=== PATIENT | female | born 1940 | race Caucasian/White ===

== ENCOUNTER → 2016-08-25 | Outpatient (CLI) | payer MEDICARE | END | disposition home or self-care (01) | LOC: RADECHMAIN 12:00 | PROVIDERS: ATTEND Family Medicine | DX: I49.3 Ventricular premature depolarization (principal); R00.8 Other abnormalities of heart beat; I47.1 Supraventricular tachycardia; I44.0 Atrioventricular block, first degree | CPT/HCPCS: 93270; 93271 ==

== ENCOUNTER → 2016-08-29 | Outpatient (CLI) | payer MEDICARE ==
--- NOTE | 2016-09-12 07:57 | EEG ---
DATE OF SERVICE: 08/29/2016 REASON FOR TESTING: Syncope. AGE: 76Y DESCRIPTION OF THE PROCEDURE: This EEG was performed using a 21-channel digital electroencephalograph, following the international 10 to 20 system. DESCRIPTION OF THE RECORDING: From the beginning of the tracing, and with the patient's eyes closed, the background rhythm was mostly consisting of 9 to 10 Hz alpha frequency in the posterior occipital leads. No obvious asymmetry is seen. Photic stimulation was performed with a good driving response seen. No pathological waves were elicited. Hyperventilation was not performed. The patient remains awake throughout the tracing. Occasional muscle and movement artifacts are seen. No epileptiform discharges were seen. Her EKG lead showed a regular rate and rhythm. INTERPRETATION: This awake EEG can be considered within normal limits. There was no asymmetry seen. No epileptiform discharges were noticed. The absence of epileptiform discharges does not rule out the diagnosis of epilepsy, therefore, clinical correlation is recommended.
== END ==
LOC: NEUROMAIN 08:59
PROVIDERS: ATTEND Family Medicine
DX: R55 Syncope and collapse (principal)
CPT/HCPCS: 95819

== ENCOUNTER → 2016-09-29 | Outpatient (CLI) | payer MEDICARE ==
--- NOTE | 2016-09-29 21:57 | MR ---
EXAMINATION TYPE: MR angio head wo con DATE OF EXAM: 09/29/2016 COMPARISON: NONE HISTORY: Vertebro-basilar artery syndrome, syncope and collapse per order. TECHNIQUE: Time of flight images focusing on the [place] of [place] were performed without contrast.. 2-D and 3-D postprocessing imaging is performed. FINDINGS: There is codominant vertebrobasilar system. No significant focal stenosis or aneurysmal irene nge. Caliber size of posterior circulation is felt within normal limits. There are hypoplastic wrecking car driver ior to communicating arteries noted bilaterally. Images of the anterior circulation show slight tortuous course to distal internal carotid arteries bi laterally. There is patent anterior communicating artery seen. No significant focal stenosis or aneur ysmal change is evident. IMPRESSION: No aneurysmal change at the level of [place]. Unremarkable study.
--- NOTE | 2016-09-29 22:00 | MR ---
EXAMINATION TYPE: MR neck wo/w con DATE OF EXAM: 09/29/2016 COMPARISON: NONE HISTORY: Vertebro-basilar artery syndrome, syncope and collapse. CONTRAST: Standard multiplanar, multisequence MRI departmental protocol utilizing 20 mL intravenous MultiHance gadolinium contrast. 2-D and 3-D postprocessing imaging is performed. FINDINGS: There is normal three-vessel origin from the aortic arch. The right common carotid artery s hows normal origin from the right brachiocephalic artery. There is no significant stenosis along cour se of the right common or internal carotid arteries including at level of the carotid bulb. There is patent external carotid arteries seen without significant stenosis identified. Images of the left neck show patent left common and internal carotid artery without significant steno sis including at level of carotid bulb. There is patent left external carotid artery without signific ant stenosis. There is codominant vertebrobasilar system. Vertebral arteries are patent to basilar junction. Patent subclavian arteries are noted bilaterally extending into proximal axillary arteries. No signif icant stenosis is evident. IMPRESSION: Unremarkable study. No significant focal stenosis in carotid or vertebral arterial systems bilaterall y.
== END | disposition home or self-care (01) ==
LOC: RADMRIMAIN 12:15
PROVIDERS: ATTEND Family Medicine
DX: R55 Syncope and collapse (principal); G45.0 Vertebro-basilar artery syndrome
CPT/HCPCS: 70544; 70543; A9577

== ENCOUNTER 2019-01-20 18:54 | Emergency (ER) | payer MEDICARE ==
[2019-01-20] MEDS ORDERED: METOCLOPRAMIDE 5 MG/ML 2 ML VIAL IVP STA (20:06)
[2019-01-20] MEDS ORDERED: diphenhydrAMINE 50 MG/ML 1 ML VIAL IVP STA (20:06)
--- NOTE | 2019-01-20 20:14 | ED ---
Headache HPI - General Mode of arrival: ambulatory Limitations: no limitations <Paulette Hicks - Last Filed: 01/21/19 01:48> <Trey Noel - Last Filed: 01/21/19 07:19> - General Chief Complaint: Headache Stated Complaint: Migraine,High BP Time Seen by Provider: 01/20/19 19:50 - History of Present Illness Initial Comments: 78-year-old female patient presents to the emergency department today for evaluation of headache and nausea. Patient states since Thursday she has had a headache mostly behind the right eye and radiating up into the right side of her head. Patient states in the morning she does have some blurred vision and black spots in the vision that does resolve when she's been up for a period of time. States that she has had some constant nausea but she is able to eat and drink. She denies any vomiting. Patient states that she does have some generalized weakness. Denies any numbness or tingling to the extremities. Patient denies any recent rash, fever, chills, shortness breath, chest pain, diarrhea, constipation, back pain, hematuria, dysuria, urinary urgency, urinary frequency, headache, visual changes, or any other complaints. (Paulette Hicks) - Related Data Home Medications Medication Instructions Recorded Confirmed Irbesartan 300 mg PO DAILY 11/24/13 01/20/19 Levothyroxine Sodium [Synthroid] 75 mcg PO MOTUWETHFRSA 11/24/13 01/20/19 Ascorbic Acid [Vitamin C with Julissa 500 mg PO DAILY 01/20/19 01/20/19 Hips] Atenolol [Tenormin] 12.5 mg PO DAILY 01/20/19 01/20/19 Biotin 5,000 mcg PO DAILY 01/20/19 01/20/19 Cholecalciferol (Vitamin D3) 2,000 unit PO DAILY 01/20/19 01/20/19 [Vitamin D3] Cyanocobalamin (Vitamin B-12) 1,000 mcg PO DAILY 01/20/19 01/20/19 [Vitamin B-12] Diclofenac Sodium [Voltaren Gel] 1 applic TOPICAL DAILY PRN 01/20/19 01/20/19 Fish Oil/Dha/Epa [Fish Oil 1,200 1 cap PO HS 01/20/19 01/20/19 mg Fish Oil] Folic Acid 0.4 mg PO DAILY 01/20/19 01/20/19 Lansoprazole [Prevacid] 15 mg PO DAILY 01/20/19 01/20/19 Levothyroxine Sodium [Synthroid] 112.5 mcg PO BOUDREAUX 01/20/19 01/20/19 Lutein 20 mg PO DAILY 01/20/19 01/20/19 Melatonin 5 mg PO HS 01/20/19 01/20/19 Montelukast [Singulair] 10 mg PO HS 01/20/19 01/20/19 Selenium 100 mcg PO DAILY 01/20/19 01/20/19 Turmeric Root Extract [Turmeric] 500 mg PO BID 01/20/19 01/20/19 Vitamin A Acetate [Vitamin A] 10,000 unit SL DAILY 01/20/19 01/20/19 Vitamin E (Dl,Tocopheryl Acet) 400 unit PO DAILY 01/20/19 01/20/19 [Vitamin E] Zinc Gluconate [Zinc] 50 mg PO HS 01/20/19 01/20/19 hydrALAZINE HCL [Apresoline] 50 mg PO BID 01/20/19 01/20/19 Allergies Allergy/AdvReac Type Severity Reaction Status Date / Time Beef Containing Products Allergy Unknown Verified 01/20/19 20:27 Milk Containing Products Allergy Unknown Verified 01/20/19 20:27 [Dairy] mold Allergy Dyspnea Verified 01/20/19 20:27 pollen extracts Allergy Dyspnea Verified 01/20/19 20:27 procaine [From Novocain] Allergy Unknown Verified 01/20/19 20:27 tree and shrub pollen Allergy Dyspnea Verified 01/20/19 20:27 aspirin AdvReac Abdominal Verified 01/20/19 20:27 Pain celecoxib [From Celebrex] AdvReac Dyspnea Verified 01/20/19 20:27 Review of Systems ROS Other: All systems not noted in ROS Statement are negative. <Paulette Hicks - Last Filed: 01/21/19 01:48> ROS Other: All systems not noted in ROS Statement are negative. <Trey Noel - Last Filed: 01/21/19 07:19> ROS Statement: Those systems with pertinent positive or pertinent negative responses have been documented in the HPI. Past Medical History Past Medical History: Hyperlipidemia, Hypertension History of Any Multi-Drug Resistant Organisms: None Reported Past Surgical History: Orthopedic Surgery Additional Past Surgical History / Comment(s): bilateral knee Past Psychological History: No Psychological Hx Reported Smoking Status: Never smoker Past Alcohol Use History: Occasional Past Drug Use History: None Reported <Paulette Hicks - Last Filed: 01/21/19 01:48> General Exam Limitations: no limitations General appearance: alert, in no apparent distress, other (Physical well-developed, well-nourished elderly female patient in no acute distress. Vital signs upon presentation are temperature 98.2F, pulse 66, respirations 16, blood pressure 125/68, pulse ox 98% on room air.) Eye exam: Present: normal appearance, PERRL, EOMI. Absent: scleral icterus, con junctival injection, nystagmus, periorbital swelling ENT exam: Present: normal exam, normal oropharynx, mucous membranes moist Neck exam: Present: normal inspection. Absent: tenderness, meningismus, lymphadenopathy Respiratory exam: Present: normal lung sounds bilaterally. Absent: respiratory distress, wheezes, rales, rhonchi, stridor Cardiovascular Exam: Present: regular rate, normal rhythm, normal heart sounds. Absent: systolic murmur, diastolic murmur, rubs, gallop, clicks GI/Abdominal exam: Present: soft, normal bowel sounds. Absent: distended, tenderness, guarding, rebound, rigid Neurological exam: Present: alert, oriented X3, CN II-XII intact, other (Strength in all 4 extremities is 5/5.) Psychiatric exam: Present: normal affect, normal mood Skin exam: Present: warm, dry, intact, normal color. Absent: rash <Paulette Hicks - Last Filed: 01/21/19 01:48> Course Vital Signs 01/20/19 01/20/19 01/21/19 18:56 21:43 00:04 Temperature 98.2 F 98.8 F Pulse Rate 66 83 84 Respiratory 16 20 18 Rate Blood Pressure 125/68 122/77 132/79 O2 Sat by Pulse 98 97 95 Oximetry Medical Decision Making - Lab Data Result diagrams: 01/20/19 20:20 01/20/19 20:20 - EKG Data -: EKG Interpreted by Wy - Radiology Data Radiology results: report reviewed, image reviewed <Paulette Hicks - Last Filed: 01/21/19 01:48> - Lab Data Result diagrams: 01/20/19 20:20 01/20/19 20:20 <Trey Noel - Last Filed: 01/21/19 07:19> - Medical Decision Making 78-year-old female patient presents to the emergency department today for evaluation of right frontal headache. Physical examination is unremarkable. She is neurologically intact with no focal deficits. Labs reviewed and are unremarkable. CT brain was obtained and showed no acute abnormalities. Upon reevaluation patient reports continued headache. We did discuss further pain management options. My attending Dr. Noel was in to evaluate the patient. We did discuss lumbar puncture, patient declined stating she would rather have outpatient MRI. She was given additional IV fluid, Tylenol, and Decadron. Upon reevaluation she does report improvement of her headache which is comparable being discharged home at this time. She is instructed to follow-up with the primary care physician for recheck in 1-2 days. She is instructed to call the primary care's office in the morning and discuss MRI. She is also given outpatient referrals for neurology. Return parameters were discussed in detail. She verbalizes understanding and agrees with this plan. (Paulette Hicks) I saw this patient in conjunction with the physician kitchen assistant. I performed independent history and physical exam. Agree with case management. (Trey Mccarty) - Lab Data Lab Results 01/20/19 01/20/19 01/20/19 Range/Units 20:20 20:20 20:20 WBC 7.3 (3.8-10.6) k/uL RBC 4.05 (3.80-5.40) m/uL Hgb 11.9 (11.4-16.0) gm/dL Hct 37.6 (34.0-46.0) % MCV 92.9 (80.0-100.0) fL MCH 29.4 (25.0-35.0) pg MCHC 31.7 (31.0-37.0) g/dL RDW 14.2 (11.5-15.5) % Plt Count 254 (150-450) k/uL Neutrophils % 62 % Lymphocytes % 25 % Monocytes % 7 % Eosinophils % 4 % Basophils % 0 % Neutrophils # 4.5 (1.3-7.7) k/uL Lymphocytes # 1.8 (1.0-4.8) k/uL Monocytes # 0.5 (0-1.0) k/uL Eosinophils # 0.3 (0-0.7) k/uL Basophils # 0.0 (0-0.2) k/uL ESR 6 (0-20) mm/hr Sodium 138 (137-145) mmol/L Potassium 4.4 (3.5-5.1) mmol/L Chloride 106 (98-107) mmol/L Carbon Dioxide 23 (22-30) mmol/L Anion Gap 9 mmol/L BUN 35 H (7-17) mg/dL Creatinine 1.20 H (0.52-1.04) mg/dL Est GFR (CKD-EPI)AfAm 51 (>60 ml/min/1.73 sqM) Est GFR (CKD-EPI)NonAf 44 (>60 ml/min/1.73 sqM) Glucose 108 H (74-99) mg/dL Calcium 9.5 (8.4-10.2) mg/dL Total Bilirubin 0.3 (0.2-1.3) mg/dL AST 18 (14-36) U/L ALT 28 (9-52) U/L Alkaline Phosphatase 90 (38-126) U/L Troponin I <0.012 (0.000-0.034) ng/mL Total Protein 6.4 (6.3-8.2) g/dL Albumin 3.9 (3.5-5.0) g/dL Amylase 78 (30-110) U/L Lipase 338 H (23-300) U/L - EKG Data EKG Comments: EKG obtained at 2027 shows normal sinus rhythm with a ventricular rate of 74, TN interval 172, QRS duration was 72, QT 366, QTC 406. No evidence of ST elevation or depression. (Paulette Hicks) - Radiology Data CT brain without contrast was obtained. Report was reviewed in its entirety. Impression by Dr. Perez shows cerebral atrophy. Chronic small vessel ischemia. No acute intra-cranial abnormalities. (Paulette Hicks) Disposition Is patient prescribed a controlled substance at d/c from ED?: No Time of Disposition: 23:47 <Paulette Hicks - Last Filed: 01/21/19 01:48> <Trey Noel - Last Filed: 01/21/19 07:19> Clinical Impression: Headache, Nausea Disposition: HOME SELF-CARE Condition: Good Instructions (If sedation given, give patient instructions): Acute Headache (ED), Acute Nausea and Vomiting (ED) Additional Instructions: Take tylenol for pain control. Call Dr. Ge's office in the morning to discuss MRI. Follow up with neurology for further evaluation as soon as possible. Return to the emergency department immediately for any new, worsening, or concerning symptoms. Referrals: Sahara Ge MD [Primary Care Provider] - 1-2 days Shaniqua Valero MD [Medical Doctor] - 1-2 days
[2019-01-20 20:31] LABS: Basophils % (A) 0 %; Eosinophils # (A) 0.3 k/uL (0-0.7); Eosinophils % (A) 4 %; HCT 37.6 % (34.0-46.0); HGB 11.9 gm/dL (11.4-16.0); Lymphocytes # (A) 1.8 k/uL (1.0-4.8); Lymphocytes % (A) 25 %; MCH 29.4 pg (25.0-35.0); MCHC 31.7 g/dL (31.0-37.0); MCV 92.9 fL (80.0-100.0); Mean Platelet Volume 7.9; Monocytes # (A) 0.5 k/uL (0-1.0); Monocytes % (A) 7 %; Neutrophils # (A) 4.5 k/uL (1.3-7.7); Neutrophils % (A) 62 %; Platelet Count 254 k/uL (150-450); RBC 4.05 m/uL (3.80-5.40); RDW 14.2 % (11.5-15.5); WBC 7.3 k/uL (3.8-10.6)
[2019-01-20 20:44] LABS: Albumin 3.9 g/dL (3.5-5.0); Calcium 9.5 mg/dL (8.4-10.2); Potassium 4.4 mmol/L (3.5-5.1); Total Bilirubin 0.3 mg/dL (0.2-1.3); Total Protein 6.4 g/dL (6.3-8.2)
--- NOTE | 2019-01-20 21:00 | CT ---
EXAMINATION TYPE: CT brain wo con DATE OF EXAM: 01/20/2019 COMPARISON: None HISTORY: Headache, blurred vision, elevated BP, nausea. CT DLP: 1129.4 mGycm Automated exposure control for dose reduction was used. FINDINGS: There is cerebral cortical atrophy. There is no mass effect nor midline shift. There is no sign of in tracranial hemorrhage. There is moderate patchy hypodensity in the periventricular white matter. Calv arium appears intact. Skull base appears intact. IMPRESSION: CEREBRAL ATROPHY. CHRONIC DIFFUSE SMALL VESSEL ISCHEMIA. NO ACUTE INTRACRANIAL ABNORMALITY.
[2019-01-20] MEDS ORDERED: SODIUM CHLORIDE 0.9% 1,000 ML IV ONE (21:24)
[2019-01-20 21:30] LABS: Erythrocyte Sedimentation Rate 6 mm/hr (0-20)
[2019-01-20] MEDS ORDERED: MORPHINE SULFATE 2 MG/ML SYRINGE IVP STA (22:37)
[2019-01-20] MEDS ORDERED: ACETAMINOPHEN TAB 500 MG TAB PO STA (22:48)
[2019-01-20] MEDS ORDERED: DEXAMETHASONE SOD PHOSPHATE 10 MG/ML 1 ML VIAL IV STA (22:48)
[2019-01-21 00:05] VITALS: BP 132/79; PULSE 84; RESP 18; TEMP 98.8
== END 2019-01-21 00:04 | disposition home or self-care (01) ==
LOC: EC 18:54
DX: R51 Headache (principal); R11.0 Nausea; H53.8 Other visual disturbances; R53.1 Weakness; I10 Essential (primary) hypertension; Z88.4 Allergy status to anesthetic agent; Z88.6 Allergy status to analgesic agent; Z91.011 Allergy to milk products; Z91.018 Allergy to other foods; Z91.048 Other nonmedicinal substance allergy status; Z79.890 Hormone replacement therapy; Z79.899 Other long term (current) drug therapy; Z53.20 Procedure and treatment not carried out because of patient's decision for unspecified reasons; Z53.29 Procedure and treatment not carried out because of patient's decision for other reasons
CPT/HCPCS: 36415; 93005; 80053; 85652; 82150; 83690; 84484; 85025; 70450; 99284; 96374; 96375 ×2; 96361; J1200; J1100; J2765

== ENCOUNTER → 2019-01-25 | Outpatient (CLI) | payer MEDICARE ==
--- NOTE | 2019-01-25 10:38 | MR ---
EXAMINATION TYPE: MR brain wo/w con DATE OF EXAM: 01/25/2019 COMPARISON: None HISTORY: Headaches CONTRAST: Performed utilizing 6.5 mL intravenous Gadavist gadolinium contrast. TECHNIQUE: Multiplanar, multiecho imaging on a 3.0 Radha magnet is performed through the brain. Stud y is performed within 24 hours of arrival to the hospital. The craniovertebral junction is normal. The pituitary is normal. Diffusion-weighted imaging is performed. Tiny subtle ependymal increased signals within the right oc cipital horn lateral ventricle wall. Series 305 image 128. Some acute ischemic change this level may be present. No additional suspicious hyperintensities on diffusion weighted imaging are evident. There are multiple patchy to confluent periventricular white matter changes which are nonspecific. Mi crovascular ischemic changes favored. Other etiologies including multiple sclerosis, vasculitis or Ly me disease could be considered. Ventricles and sulci are somewhat prominent for the patient age. No abnormal enhancement is evident. IMPRESSIONS: 1. Fairly extensive chronic appearing periventricular white matter ischemic changes. Additional subco rtical and deep white matter changes are present. Microvascular ischemic change is most likely within the differential. 2. Tiny acute ischemic change along the ependymal wall of the right occipital horn lateral ventricle may be present.
== END | disposition home or self-care (01) ==
LOC: RADMRIMAIN 07:09
PROVIDERS: ATTEND Family Medicine
DX: I67.82 Cerebral ischemia (principal); R90.89 Other abnormal findings on diagnostic imaging of central nervous system
CPT/HCPCS: 70553; A9585

== ENCOUNTER → 2019-01-27 | Outpatient (CLI) | payer MEDICARE ==
--- NOTE | 2019-01-27 15:25 | US ---
EXAMINATION TYPE: US carotid duplex BILAT DATE OF EXAM: 01/27/2019 COMPARISON: MRI CLINICAL HISTORY: I65.22 OCCLUSION AND STENOSIS OF LT CAROTID ARTERY. Stenosis, pt has no complaints at this time EXAM MEASUREMENTS: RIGHT: Peak Systolic Velocity (PSV) cm/sec ----- Right CCA: 114.2 ----- Right ICA: 122.4 ----- Right ECA: 151.2 ICA/CCA ratio: 1.1 RIGHT: End Diastole cm/sec ----- Right CCA: 22.7 ----- Right ICA: 42.2 ----- Right ECA: 0.0 LEFT: Peak Systolic Velocity (PSV) cm/sec ----- Left CCA: 92.7 ----- Left ICA: 313.0 ----- Left ECA: 92.7 ICA/CCA ratio: 3.4 LEFT: End Diastole cm/sec ----- Left CCA: 26.7 ----- Left ICA: 103.3 ----- Left ECA: 0.0 VERTEBRALS (direction of flow): Right Vertebral: Antegrade Left Vertebral: Antegrade Rhythm: Arrhythmia No significant stenosis seen on right side, left ICA showing elevated velocities possibly partially s econdary to tortuosity IMPRESSION: 1. Cardiac arrhythmia, correlate with EKG. 2. Stenosis of greater than 70% within the left internal carotid artery. CTA neck could be utilized f or more accurate assessment of degree of stenosis. Criteria for Assigning % of Stenosis / Diameter reduction (Estimation based on the indirect measurements of the internal carotid artery velocities (ICA PSV). 1. Normal (no stenosis)=ICA PSV < 125 cm/s: ratio < 2.0: ICA EDV<40 cm/s. 2. Less than 50% stenosis=ICA PSV < 125 cm/s: ratio < 2.0: ICA EDV<40 cm/s. 3. 50 to 69% stenosis=ICA PSV of 125 to 230 cm/s: ration 2.0 ? 4.0: ICA EDV 40-100 cm/s. 4. Greater than 70% stenosis to near occlusion= ICA PSV > 230 cm/s: ratio > 4.0: ICA EDV > 100 cm/s. 5. Near occlusion= ICA PSV velocities may be low or undetectable: variable ratio and ICA EDV. 6. Total occlusion=unable to detect flow.
== END ==
LOC: RADUSWWP 14:52
PROVIDERS: ATTEND Family Medicine
DX: I49.9 Cardiac arrhythmia, unspecified (principal); I65.22 Occlusion and stenosis of left carotid artery
CPT/HCPCS: 93880

== ENCOUNTER → 2019-01-31 | Outpatient (CLI) | payer MEDICARE ==
--- NOTE | 2019-01-31 13:01 | ECHOF ---
Referral Reason:I65.22 L carotid stenosis, I49.9 Arrythmia MEASUREMENTS -------- HEIGHT: 162.6 cm WEIGHT: 61.7 kg BP: RVIDd: 3.0 cm (< 3.3) IVSd: 1.3 cm (0.6 - 1.1) LVIDd: 3.9 cm (3.9 - 5.3) LVPWd: 1.7 cm (0.6 - 1.1) IVSs: 1.7 cm LVIDs: 2.3 cm LVPWs: 1.9 cm LAESV Index (A-L): 49.10 ml/m Ao Diam: 3.1 cm (2.0 - 3.7) AV Cusp: 1.6 cm (1.5 - 2.6) LA Diam: 3.9 cm (2.7 - 3.8) MV EXCURSION: 13.666 mm (> 18.000) MV EF SLOPE: 52 mm/s (70 - 150) EPSS: 0.4 cm MV E Roger: 0.92 m/s MV DecT: 187 ms MV A Roger: 1.07 m/s MV E/A Ratio: 0.86 AR PHT: 368 ms RAP: 5.00 mmHg RVSP: 43.88 mmHg FINDINGS -------- Sinus rhythm with extra systolic beats. This was a technically good study. The left ventricular size is normal. There is moderate concentric left ventricular hypertrophy. O verall left ventricular systolic function is normal with, an EF between 60 - 65 %. Left ventricular fillimg pressure cannot be estimated due to severe mitral regurgitation. The right ventricle is normal in size. LA is severely dilated >40 ml/m2 The right atrial size is normal. Interatrial and interventricular septum intact. The aortic valve is trileaflet and appears structurally normal. There is mild aortic regurgitation. There is no evidence of aortic stenosis. Mild mitral annular calcification present. Uummbtvo-iy-yvarmf mitral regurgitation is present. Mild tricuspid regurgitation present. There is mild pulmonary hypertension. The right ventricular systolic pressure, as measured by Doppler, is 43.88mmHg. There is no pulmonic regurgitation present. The aortic root size is normal. Normal inferior vena cava with normal inspiratory collapse consistent with estimated right atrial pre ssure of 5 mmHg. There is no pericardial effusion. CONCLUSIONS -------- 1. Sinus rhythm with extra systolic beats. 2. This was a technically good study. 3. The left ventricular size is normal. 4. There is moderate concentric left ventricular hypertrophy. 5. Overall left ventricular systolic function is normal with, an EF between 60 - 65 %. 6. Left ventricular fillimg pressure cannot be estimated due to severe mitral regurgitation. 7. The right ventricle is normal in size. 8. LA is severely dilated >40 ml/m2 9. The right atrial size is normal. 10. Interatrial and interventricular septum intact. 11. The aortic valve is trileaflet and appears structurally normal. 12. There is mild aortic regurgitation. 13. There is no evidence of aortic stenosis. 14. Mild mitral annular calcification present. 15. Cmtwpgtn-ps-wukkhk mitral regurgitation is present. 16. Mild tricuspid regurgitation present. 17. There is mild pulmonary hypertension. 18. The right ventricular systolic pressure, as measured by Doppler, is 43.88mmHg. 19. There is no pulmonic regurgitation present. 20. The aortic root size is normal. 21. Normal inferior vena cava with normal inspiratory collapse consistent with estimated right atrial pressure of 5 mmHg. 22. There is no pericardial effusion. CONSTRUCTION MGR: April Hunt RDCS
--- NOTE | 2019-01-31 14:06 | CT ---
EXAMINATION TYPE: CT angio neck DATE OF EXAM: 01/31/2019 HISTORY: Carotid stenosis COMPARISON: 01/27/[address] DLP: 285 mGycm. Automated Exposure Control for Dose Reduction was Utilized. TECHNIQUE: CTA scan of the neck is performed with IV Contrast, patient injected with 65 mL of Isovue 370, axial images are obtained, coronal and sagittal reformatted images are reviewed. Three-D recons tructed images are created on an independent workstation and reviewed. Source images are reviewed. FINDINGS: Carotid/Vascular Structures: There is a three-vessel arch. Significant flow-limiting stenosis of the carotid bifurcations is not evident. There is atheromatous plaquing at the left carotid bifurcation without stenosis. IMPRESSION: 1. No flow-limiting stenosis bilateral carotid bifurcations.
== END ==
LOC: RADECHMAIN 08:03
PROVIDERS: ATTEND Family Medicine
DX: I65.22 Occlusion and stenosis of left carotid artery (principal)
CPT/HCPCS: 93306; 82565; 84520; 70498; 36415; Q9967

== ENCOUNTER → 2019-02-11 | Outpatient (CLI) | payer MEDICARE ==
[2019-02-11 15:16] LABS: HCT 36.9 % (34.0-46.0); HGB 11.6 gm/dL (11.4-16.0); MCH 29.7 pg (25.0-35.0); MCHC 31.3 g/dL (31.0-37.0); MCV 94.7 fL (80.0-100.0); Mean Platelet Volume 7.7; Platelet Count 291 k/uL (150-450); WBC 7.5 k/uL (3.8-10.6)
[2019-02-11 15:32] LABS: African American GFR (CKD) >90 (>60 ml/min/1.73 sqM); Anion Gap 9 mmol/L; Blood Urea Nitrogen 16 mg/dL (7-17); Carbon Dioxide 21 mmol/L (22-30); Chloride 110 mmol/L (98-107); Potassium 4.2 mmol/L (3.5-5.1); Sodium 140 mmol/L (137-145)
== END | disposition home or self-care (01) ==
LOC: LABPAT 14:29
PROVIDERS: ATTEND Internal Medicine Interventional Cardiology
DX: Z01.812 Encounter for preprocedural laboratory examination (principal)
CPT/HCPCS: 36415; 80051; 82565; 84520; 85027

== ENCOUNTER 2019-02-21 08:00 | Day surgery (SDC) | payer MEDICARE ==
[2019-02-17 14:05] VITALS: BMI 24.5
[2019-02-21 07:07] VITALS: TEMP 97.8
[~2019-02-21 08:00] MED LIST: ALPRAZolam 0.25 MG TAB PO PRN; ALPRAZolam 0.5 MG TAB PO PRN; ATORVASTATIN 80 MG TAB PO STA; BENZOCAINE SPRAY 1 CAN MUCOUS MEM ONE; HYDROmorphone 0.5 MG/0.5 ML SYRINGE IVP ONE; MIDAZOLAM 2 MG/2 ML VIAL IV ONE; NITROGLYCERIN SL TABS 0.4 MG TAB SUBLINGUAL PRN; SODIUM CHLORIDE 0.9% 1,000 ML IV ONE; SODIUM CHLORIDE 0.9% 1,000 ML in EMPTY BAG 1 BAG IV ONE; fentaNYL (PF) 50 MCG/ML 2 ML AMP IV ONE; fentaNYL (PF) 50 MCG/ML 2 ML AMP ONE; hydrALAZINE HCL 20 MG/ML 1 ML VIAL IVP ONE
[2019-02-21] MEDS ORDERED: LIDOCAINE 1% INJ 10MG/ML (20 ML MDV) SQ ONE (08:16)
[2019-02-21] MEDS ORDERED: HYDROmorphone 1 MG/ML 1 ML SYRINGE IVP ONE (08:25)
[2019-02-21] MEDS ORDERED: IOPAMIDOL-370 125ML BTL INJ ONE (08:43)
[2019-02-21] MEDS ORDERED: RX INFO: IV CONTRAST WAS GIVEN 1 EACH MISC MISCELLANE PRN (08:51)
[2019-02-21] MEDS ORDERED: SODIUM CHLORIDE 0.9% 1,000 ML IV SCH (09:00)
--- NOTE | 2019-02-21 09:01 | P.PCN ---
Date of Procedure: 02/21/19 Operative Findings: CARDIAC CATHETERIZATION PERFORMING PHYSICIAN: Rolando Beauchamp MD, RPVI PROCEDURE PERFORMED: 1. Right heart catheterization 2. Selective right and left coronary angiogram 3. Left heart catheterization 4. Left ventriculography INDICATION: This is a pleasant 78-year-old female patient was experiencing recently increasing shortness of breath with exertion and also sometimes chest discomfort with exertion. She underwent transthoracic echocardiogram which revealed evidence of moderate to severe MR. She underwent a NIVIA earlier today and she was brought to undergo a right and left heart catheterization. COMPLICATION: None APPROACH: Right common femoral vein Right common femoral artery LEVEL OF SEDATION: Moderate sedation duration of 30 minutes PROCEDURE DESCRIPTION: After obtaining an informed consent, the patient was brought to cardiac cath l ab. Local anesthesia was performed using lidocaine subcutaneously. The right common femoral vein was cannulated using micropuncture technique, the micropuncture wire passed easily then I placed an 8-Russian sheath. The right common femoral artery was cannulated using Seldinger technique, the guidewire passed easily, following that we advanced a 6 Russian sheath dilator assembly, the wire and dilator were removed and sheath was flushed. Right heart catheterization was performed using 7-Russian [place] catheter. Selective right and left coronary angiogram using a 6-Russian JR4 and JL catheters. Following that we did left heart catheterization and left ventriculography using 6-Russian pigtail catheter. The procedure was completed there was no complication. SELECTIVE CORONARY ANGIOGRAM: The right coronary artery: Is a large caliber vessel and a dominant vessel. The RCA has mild disease in the midportion. Left main: Is angiographically normal. Bifurcates into LCx and LAD. The left circumflex: Is a large caliber vessel. The proximal LCx appeared to be angiographically normal. The mid LCx has a long tubular lesion up to about 80%. The lesions inv olving the bifurcation of OM1 which has a tight ostial lesion. White into underwent 3 appeared to have mild disease only. The circumflex continues after that as a small to medium caliber vessel in the AV groove The left anterior descending artery: The LAD is a large caliber vessel. The proximal LAD appeared to have mild disease only. The mid LAD appears to have a lesion in the range of 40-50%. The LAD distally appears to be normal. LAD gives rises into 2 small diagonal branches. The first diagonal has a lesion about 50% and second diagonal appeared to be angiographically normal. HEMODYNAMICS: The pulmonary capillary wedge pressure was 18 mmHg The PA pressures were as follow systolic 37, diastolic 21, and mean of 29 mmHg RV pressures were as follow systolic 35 and end-diastolic of 11 mmHg RA pressure was 7 mmHg The LV EDP was 12-18 mmHg LEFT VENTRICLE ANGIOGRAM: Was performed in the JULIAN projection and using a power injection. The left ventricular systolic function is normal with 3+ MR. CONCLUSION: 1. Normal right heart pressures 2. 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 Intermediate disease involving the mid LAD 4. Normal left ventricle systolic function 5. 3+ mitral regurgitation POSTPROCEDURE MANAGEMENT: Giving the above anatomy, and the process of mitral and tricuspid regurgitation, I did recommend patient to be seen by cardiothoracic surgeon for the evaluation of coronary artery bypass grafting.
--- NOTE | 2019-02-21 09:02 | P.PCN ---
Date of Procedure: 02/21/19 Operative Findings: TRANSESOPHAGEAL ECHOCARDIOGRAM SUPERVISOR SANDING: CRISTIANE CATALAN MD, RPVI INDICATION: This is a pleasant 78-year-old female patient was experiencing recently increasing shortness of breath with exertion. She underwent an echocardiogram which revealed normal LV function was evidence of moderate to severe mitral regurgitation. Because of that a NIVIA and heart catheterization where advice. SEDATION: Conscious sedation with sedation length of 15 minutes COMPLICATION: None PROCEDURE DESCRIPTION: After obtaining an informed consent, the patient was brought to transesophageal echocardiogram room. Pulse oximetry and heart monitors were attached to the patient. The patient throat was sprayed using lidocaine. The patient was turned into left lateral position. After that a bite guard was placed. After an appropriate conscious sedation was initiated, the transesophageal echocardiogram was advanced through a bite guard into the mid esophagus. A 2-D echocardiogram images, color Doppler images, continuous wave images, pulse-wave images, of various cardiac structure were performed. After that the transesophageal echocardiogram probe was advanced into the stomach and fixed to obtain transgastric view was. The probe was brought into the mid esophagus. Inter-atrial septum was interrogated using 2D images, color Doppler images, and then contrast study. After that transesophageal echocardiogram was withdrawn out and upon withdrawing the descending thoracic aorta all the way up to the arch was evaluated. FINDING: The left ventricular dimension and systolic function appeared to be within normal limits. The ejection fraction appeared to be in the range of 50-55%. The right ventricle appeared to be of normal size and function. The left atrium is dilated. The left atrial appendage appeared to be free from any thrombus. The interatrial septum appeared to be intact. Aortic valve is trileaflet valve without stenosis with mild insufficiency. Mitral valve seems to be mildly thickened with evidence of moderate mitral regurgitation by color flow Doppler, by see my quantitative measurements, as well as by quantitative measurements. I did perform color flow Doppler, I did perform vena contractor measurements, and also I did perform PISA measurement. The tricuspid valve appears to be mildly thickened as well was evidence of moderate tricuspid regurgitation. Aortic root appeared to be within normal limits for dimension. No evidence of pericardial effusion seen. CONCLUSION: 1. Normal left ventricular systolic function with EF between 50-55% 2. Normal right ventricular dimension and systolic function 3. Dilated left atrium 4. Intact interatrial septum 5. Normal left appendage 6. Thickened mitral valve leaflets with moderate mitral regurgitation by color flow, see my quantitative, and quantitative measurements 7. Thickened tricuspid valve leaflets with evidence of moderate tricuspid regurgitation 8. Trileaflet aortic valve without stenosis with mild insufficiency 9. Normal pulmonic valve with mild insufficiency 10 Normal aortic root dimension 11 No evidence of pericardial effusion
[2019-02-21] MEDS ORDERED: ONDANSETRON 4 MG/2 ML VIAL ONE (09:06)
[2019-02-21 10:37] VITALS: RESP 16
[2019-02-21 12:32] VITALS: BP 157/70; PULSE 71
== END 2019-02-21 14:15 | disposition home or self-care (01) ==
LOC: CATHCVL 08:00
PROVIDERS: ATTEND Internal Medicine Interventional Cardiology
DX: I08.1 Rheumatic disorders of both mitral and tricuspid valves (principal); I37.0 Nonrheumatic pulmonary valve stenosis; I25.10 Atherosclerotic heart disease of native coronary artery without angina pectoris; I10 Essential (primary) hypertension; E78.5 Hyperlipidemia, unspecified; E78.00 Pure hypercholesterolemia, unspecified; Z82.49 Family history of ischemic heart disease and other diseases of the circulatory system; Z79.890 Hormone replacement therapy; Z79.899 Other long term (current) drug therapy; Z88.6 Allergy status to analgesic agent; Z88.4 Allergy status to anesthetic agent; Z88.0 Allergy status to penicillin
CPT/HCPCS: 93312; 93320; 93325; 93453; C1760; C1751; C1894 ×2; C1769 ×2; J2250; J0360; J2405; J2001; J3010; J1170; Q9967; 93460

== ENCOUNTER → 2019-04-14 | Outpatient (CLI) | payer MEDICARE ==
[2019-04-14 11:17] LABS: HCT 42.1 % (34.0-46.0); HGB 13.2 gm/dL (11.4-16.0); MCH 28.8 pg (25.0-35.0); MCHC 31.4 g/dL (31.0-37.0); MCV 91.5 fL (80.0-100.0); Mean Platelet Volume 8.5; Platelet Count 262 k/uL (150-450); RDW 13.3 % (11.5-15.5); WBC 6.3 k/uL (3.8-10.6)
[2019-04-14 11:22] LABS: Potassium 4.6 mmol/L (3.5-5.1)
== END | disposition home or self-care (01) ==
LOC: LABPAT 10:42
PROVIDERS: ATTEND Internal Medicine Interventional Cardiology
DX: Z01.812 Encounter for preprocedural laboratory examination (principal); I25.10 Atherosclerotic heart disease of native coronary artery without angina pectoris; I10 Essential (primary) hypertension; E05.90 Thyrotoxicosis, unspecified without thyrotoxic crisis or storm; R53.83 Other fatigue; R00.2 Palpitations; R06.02 Shortness of breath; R05 Cough
CPT/HCPCS: 80051; 82565; 84520; 85027

== ENCOUNTER 2019-04-26 10:52 | Day surgery (SDC) | payer MEDICARE ==
[2019-04-22 11:55] VITALS: BMI 23.6
[~2019-04-26 10:52] MED LIST changes: -BENZOCAINE SPRAY 1 CAN MUCOUS MEM ONE; -MIDAZOLAM 2 MG/2 ML VIAL IV ONE; -SODIUM CHLORIDE 0.9% 1,000 ML IV ONE; -fentaNYL (PF) 50 MCG/ML 2 ML AMP IV ONE; -fentaNYL (PF) 50 MCG/ML 2 ML AMP ONE; -hydrALAZINE HCL 20 MG/ML 1 ML VIAL IVP ONE; +hydrALAZINE HCL 20 MG/ML 1 ML VIAL IVP STA
[2019-04-26] MEDS ORDERED: hydrALAZINE HCL 50 MG TAB PO STA (11:16)
[2019-04-26] MEDS ORDERED: LOSARTAN 50 MG TAB PO STA (11:16)
[2019-04-26] MEDS ORDERED: LIDOCAINE 1% INJ 10MG/ML (20 ML MDV) ONE (12:52)
[2019-04-26] MEDS ORDERED: VERAPAMIL 2.5 MG/ML 2 ML AMP ONE (12:53)
[2019-04-26] MEDS ORDERED: MIDAZOLAM 2 MG/2 ML VIAL IV ONE (13:00)
[2019-04-26] MEDS ORDERED: LIDOCAINE 1% INJ 10MG/ML (20 ML MDV) SQ ONE (13:03)
[2019-04-26] MEDS: VERAPAMIL SYRINGE (5 MG/10 ML) INTRAARTER ONE ×2 (13:04→13:41)
[2019-04-26] MEDS ORDERED: BIVALIRUDIN BOLUS 250 MG/50 ML IV ONE (13:06)
[2019-04-26] MEDS ORDERED: BIVALIRUDIN 250 MG in SODIUM CHLORIDE 0.9% 50 ML IV ONE (13:08)
[2019-04-26] MEDS: NITROGLYCERIN 1000MCG/10ML SYRINGE INTRACORON ONE ×5 (13:16→13:38)
[2019-04-26] MEDS ORDERED: TICAGRELOR 90 MG TAB ONE (13:30)
[2019-04-26] MEDS ORDERED: ONDANSETRON 4 MG/2 ML VIAL ONE (13:31)
[2019-04-26] MEDS ORDERED: ONDANSETRON 4 MG/2 ML VIAL IVP ONE (13:33)
[2019-04-26] MEDS ORDERED: niCARdipine Syringe (1,000 mcg/10 mL) INTRACORON ONE (13:38)
[2019-04-26] MEDS ORDERED: TICAGRELOR 90 MG TAB PO ONE (13:39)
[2019-04-26] MEDS ORDERED: IOPAMIDOL-370 125ML BTL INJ ONE (13:40)
[2019-04-26] MEDS ORDERED: MAG HYDROX/AL HYDROX/SIMETH 30 ML CUP PO PRN (13:47)
[2019-04-26] MEDS ORDERED: ATROPINE SULFATE 0.1 MG/ML 10ML SYRINGE IV PRN (13:47)
[2019-04-26] MEDS ORDERED: RX INFO: IV CONTRAST WAS GIVEN 1 EACH MISC MISCELLANE PRN (13:47)
[2019-04-26] MEDS ORDERED: ZOLPIDEM 5 MG TAB PO PRN (13:47)
[2019-04-26] MEDS ORDERED: ARTIFICIAL TEARS-HYPROMELLOSE DROPS 15 ML BTL BOTH EYES PRN (13:49)
[2019-04-26] MEDS ORDERED: DICLOFENAC SODIUM GEL 100 GM TUBE TOPICAL PRN (13:49)
[2019-04-26] MEDS: SODIUM CHLORIDE 0.9% 1,000 ML IV SCH (15:00)
--- NOTE | 2019-04-26 15:13 | PTCA ---
PERCUTANEOUSTRANS CORORONARY ANGIOGRAPHY PERCUTANEOUS CORONARY INTERVENTION: 04/26/2019 PERFORMING PHYSICIAN: Rolando Beauchamp MD. PROCEDURE PERFORMED: Successful stenting of the mid left circumflex using 2.5 x 23 mm Xience ILENE which was post dilated using 2.75 mm NC balloon with an excellent angiographic results and reduction of stenosis from 90% to 0%. INDICATION: This is a 78-year-old female patient with history of coronary artery disease and valvular heart disease who continues to have shortness of breath with exertion. She underwent a heart catheterization and that revealed severe disease involving the left circumflex and intermediate to severe disease involving the LAD. Because of that, she was brought today to undergo a PCI of the left circumflex. APPROACH: Right radial artery. COMPLICATION: None. LEVEL OF SEDATION: Moderate with sedation length of 42 minutes. PROCEDURE DESCRIPTION: After obtaining an informed consent, the patient was brought to the cardiac photographic laboratory technician. The right radial artery was cannulated using micropuncture technique and a micropuncture wire passed easily, then I placed a 6-Sinhala sheath at the right radial artery. After that, I gave the patient 2 mg of verapamil IA and anticoagulation with Angiomax was initiated. The left main was engaged using JL3.5 guide. I did wire the left circumflex was wired using a whisper wire. After that I did balloon angioplasty using 2.0 x 12 mm balloon before I deployed 2.5 x 23 mm Xience ILENE where the stent was positioned under fluoroscopy guidance and deployed under its under into its nominal pressure. I post dilated the stent using 2.75 mm NC balloon. The proximal portion of the stent was dilated using 2.75 mm NC balloon and the distal was post dilated using 2.5 mm NC balloon. The final angiogram showed excellent angiographic results and the procedure was completed without any complication postprocedure management. POSTPROCEDURE MANAGEMENT: 1. Dual anti-platelet therapy. 2. Risk factors modifications. 3. Follow up with the patient. MMODL / IJN: [id number] /
[2019-04-26] MEDS: ATENOLOL 25 MG TAB PO SCH (20:24)
[2019-04-26] MEDS: hydrALAZINE HCL 50 MG TAB PO SCH (20:24)
[2019-04-26] MEDS: TICAGRELOR 90 MG TAB PO SCH (20:25)
[2019-04-26 20:42] LABS: Glucose,Whole Blood 111 mg/dL (75-99)
[2019-04-26] MEDS ORDERED: NON FORMULARY DRUG (Fish Oil/Dha/Epa [Fish Oil 1,200 Mg Fish Oil] 1 CAP) PO SCH (21:00)
[2019-04-26] MEDS ORDERED: FLUTICASONE 50MCG/SPRAY NASAL 16GM EA NOSTRIL SCH (21:00)
[2019-04-26] MEDS ORDERED: MELATONIN 5 MG TABLET PO SCH (21:00)
[2019-04-26] MEDS ORDERED: MONTELUKAST 10 MG TAB PO SCH (21:00)
[2019-04-26] MEDS ORDERED: ATORVASTATIN 80 MG TAB PO SCH (21:00)
[2019-04-26] MEDS ORDERED: ZINC SULFATE 220 MG CAP PO SCH (21:00)
[2019-04-26] MEDS ORDERED: NON FORMULARY DRUG (Turmeric Root Extract [Turmeric] 500 MG) PO SCH (21:00)
[2019-04-26] MEDS ORDERED: ACETAMINOPHEN TAB 325 MG TAB PO PRN (23:04)
[2019-04-27] MEDS: SODIUM CHLORIDE 0.9% 1,000 ML IV SCH (04:28)
[2019-04-27 06:21] LABS: Glucose,Whole Blood 95 mg/dL (75-99)
[2019-04-27 06:21] LABS: Basophils % (A) 0 %; Eosinophils # (A) 0.3 k/uL (0-0.7); Eosinophils % (A) 3 %; HCT 40.6 % (34.0-46.0); Lymphocytes # (A) 1.6 k/uL (1.0-4.8); Lymphocytes % (A) 21 %; MCH 28.8 pg (25.0-35.0); MCHC 32.1 g/dL (31.0-37.0); MCV 89.5 fL (80.0-100.0); Mean Platelet Volume 8.5; Monocytes # (A) 0.6 k/uL (0-1.0); Monocytes % (A) 8 %; Neutrophils # (A) 5.1 k/uL (1.3-7.7); Neutrophils % (A) 66 %; Platelet Count 212 k/uL (150-450); RBC 4.53 m/uL (3.80-5.40); RDW 13.4 % (11.5-15.5); WBC 7.8 k/uL (3.8-10.6)
[2019-04-27 06:30] LABS: African American GFR (CKD) >90 (>60 ml/min/1.73 sqM); Anion Gap 6 mmol/L; Blood Urea Nitrogen 19 mg/dL (7-17); Carbon Dioxide 21 mmol/L (22-30); Chloride 113 mmol/L (98-107); Glucose 92 mg/dL (74-99); Non-African American GFR(CKD) 86 (>60 ml/min/1.73 sqM); Potassium 4.2 mmol/L (3.5-5.1); Sodium 140 mmol/L (137-145)
[2019-04-27] MEDS ORDERED: LEVOTHYROXINE 75 MCG TAB PO SCH (06:30)
[2019-04-27] MEDS ORDERED: PANTOPRAZOLE 40 MG TABLET PO SCH (07:30)
[2019-04-27 08:02] VITALS: BP 161/73; PULSE 61; RESP 18; TEMP 97.8
[2019-04-27] MEDS: TICAGRELOR 90 MG TAB PO SCH (08:08)
[2019-04-27] MEDS: ATENOLOL 25 MG TAB PO SCH (08:09)
[2019-04-27] MEDS: hydrALAZINE HCL 50 MG TAB PO SCH (08:09)
[2019-04-27] MEDS ORDERED: CYANOCOBALAMIN 500 MCG TAB PO SCH (09:00)
[2019-04-27] MEDS ORDERED: VITAMIN E (DL,TOCOPHERYL ACET) 400 UNIT CAP PO SCH (09:00)
[2019-04-27] MEDS ORDERED: LOSARTAN 50 MG TAB PO SCH (09:00)
[2019-04-27] MEDS ORDERED: ASPIRIN 81 MG PO SCH (09:00)
[2019-04-27] MEDS ORDERED: NON FORMULARY DRUG (Glucosam/Chon-Msm1/C/Mang/Bosw [Glucosamine-Chondroitin-Msm Tb] 1 EACH PO SCH (09:00)
[2019-04-27] MEDS ORDERED: VITAMIN A 10,000 UNIT CAPSULE PO SCH (09:00)
[2019-04-27] MEDS ORDERED: NON FORMULARY DRUG (Biotin [Biotin] 5,000 MCG) PO SCH (09:00)
[2019-04-27] MEDS ORDERED: FERROUS SULFATE 325 MG TAB PO SCH (09:00)
[2019-04-27] MEDS ORDERED: FOLIC ACID 1 MG TAB PO SCH (09:00)
[2019-04-27] MEDS ORDERED: NON FORMULARY DRUG (Potassium [Potassium] 99 MG) PO SCH (09:00)
[2019-04-27] MEDS ORDERED: NON FORMULARY DRUG (Lutein [Lutein] 20 MG) PO SCH (09:00)
[2019-04-27] MEDS ORDERED: CHOLECALCIFEROL 1,000 UNIT TAB PO SCH (09:00)
[2019-04-27] MEDS ORDERED: ASCORBIC ACID 500 MG TAB PO SCH (09:00)
--- NOTE | 2019-04-27 15:01 | DS ---
DISCHARGE SUMMARY ADMISSION DATE: 04/26/2019 DISCHARGE DATE: 04/27/2019 BRIEF HISTORY: This is a 78-year-old female patient who was admitted to the hospital yesterday and underwent successful percutaneous coronary intervention on the left circumflex with an excellent angiographic result and without any complications. She was seen this morning. She does have a good right radial pulse. She is going to be discharged on dual antiplatelet therapy and I will follow up with the patient in the office next week. MMMARGOT / KURTN: [id number] /
[2019-05-01] MEDS ORDERED: LEVOTHYROXINE 75 MCG TAB PO SCH (06:30)
== END 2019-04-27 11:55 | disposition home or self-care (01) ==
LOC: CATHCVL 10:52 → 3SCARD 14:21 → CATHCVL 04-27 11:55
PROVIDERS: ATTEND Internal Medicine Interventional Cardiology
DX: I25.10 Atherosclerotic heart disease of native coronary artery without angina pectoris (principal); I34.0 Nonrheumatic mitral (valve) insufficiency; I10 Essential (primary) hypertension; E78.5 Hyperlipidemia, unspecified; Z79.82 Long term (current) use of aspirin; Z79.890 Hormone replacement therapy; Z79.899 Other long term (current) drug therapy; Z88.0 Allergy status to penicillin; Z88.6 Allergy status to analgesic agent; Z82.49 Family history of ischemic heart disease and other diseases of the circulatory system
CPT/HCPCS: 80048; 85025; C9600; C1769 ×2; C1887; C1725 ×3; C1894; C1874; J2250; J2405; J2001; J0583; Q9967

== ENCOUNTER → 2019-11-16 | Outpatient (CLI) | payer MEDICARE ==
--- NOTE | 2019-11-16 16:08 | US ---
EXAMINATION TYPE: US thyroid st tissue head/neck DATE OF EXAM: 11/16/2019 COMPARISON: NONE CLINICAL HISTORY: R22.1 SWELLING/MASS AND LUMP. Patients area of concern at left neck swelling scanned, no abnormality or mass seen. Targeted ultrasound left neck with comparison right-sided images at end of study show no concerning s olid or cystic mass or fluid collection at area of clinical concern or comparison right-sided level. IMPRESSION: As above.
== END | disposition home or self-care (01) ==
LOC: RADUSWWP 15:23
PROVIDERS: ATTEND Family Medicine
DX: R22.1 Localized swelling, mass and lump, neck (principal)
CPT/HCPCS: 76536

== ENCOUNTER 2019-12-28 17:12 | Inpatient (IN) | payer MEDICARE ==
[2019-12-28] MEDS ORDERED: NITROGLYCERIN OINT 1 INCH/GM PACKET TOPICAL STA (17:32)
--- NOTE | 2019-12-28 17:36 | ED ---
General Adult HPI - General Chief complaint: Chest Pain Stated complaint: chest pain Time Seen by Provider: 12/28/19 17:20 Source: patient, RN notes reviewed Mode of arrival: ambulatory Limitations: no limitations - History of Present Illness Initial comments: Patient is a pleasant 79-year-old female presenting to the emergency Department with complaints of chest discomfort. Onset of symptoms was yesterday while unloading groceries. Symptoms do continue however not as severe. Discomfort is currently rated 4/10. Discomfort yesterday was 9/10. Yesterday there was some radiation to the right arm and around the back. No radiation at this time. Discomfort feels like indigestion. Patient does feel short of breath. No nausea or diaphoresis. No history of similar symptoms previously. No leg pain or leg swelling. Symptoms do worsen with exertion - Related Data Home Medications Medication Instructions Recorded Confirmed Irbesartan 300 mg PO DAILY 11/24/13 12/28/19 Levothyroxine Sodium [Synthroid] 75 mcg PO [id number] 11/24/13 12/28/19 Ascorbic Acid [Vitamin C with Julissa 500 mg PO DAILY 01/20/19 12/28/19 Hips] Cholecalciferol (Vitamin D3) 2,000 unit PO DAILY 01/20/19 12/28/19 [Vitamin D3] Diclofenac Sodium [Voltaren Gel] 1 applic TOPICAL DAILY PRN 01/20/19 12/28/19 Lansoprazole [Prevacid] 15 mg PO HS 01/20/19 12/28/19 Levothyroxine Sodium [Synthroid] 112.5 mcg PO BOUDREAUX 01/20/19 12/28/19 Lutein 40 mg PO DAILY 01/20/19 12/28/19 Melatonin 10 mg PO HS 01/20/19 12/28/19 Montelukast [Singulair] 10 mg PO HS 01/20/19 12/28/19 Turmeric Root Extract [Turmeric] 1,000 mg PO BID 01/20/19 12/28/19 Vitamin E (Dl,Tocopheryl Acet) 400 unit PO DAILY 01/20/19 12/28/19 [Vitamin E] Zinc Gluconate [Zinc] 50 mg PO DAILY 01/20/19 12/28/19 atenoloL [Tenormin] 25 mg PO BID 01/20/19 12/28/19 hydrALAZINE HCL [Apresoline] 50 mg PO BID 01/20/19 12/28/19 Aspirin [Adult Low Dose Aspirin EC] 81 mg PO HS 02/17/19 12/28/19 Fluticasone Nasal Garrison [Flonase 1 spray EA NOSTRIL DAILY 02/17/19 12/28/19 Nasal Garrison] Glucosam/Niko-Msm1/C/Georges/Bosw 1 tab PO BID 02/17/19 12/28/19 [Kdrbtyhubvk-Zdylzhuwtny-HRW Tb] Propylene Glycol/Peg 400/Pf 1 drop BOTH EYES DAILY PRN 02/17/19 12/28/19 [Systane 0.3-0.4% Eye Drop] Potassium 99 mg PO DAILY 04/22/19 12/28/19 Albuterol Sulfate [Proair 2 puff INHALATION RT-Q4H PRN 12/28/19 12/28/19 Respiclick] Biotin 10,000 mcg PO DAILY 12/28/19 12/28/19 Clopidogrel Bisulfate [Plavix] 75 mg PO DAILY 12/28/19 12/28/19 Fish Oil/Dha/Epa [Fish Oil 1,200 1 cap PO DAILY 12/28/19 12/28/19 mg Fish Oil] Vitamin A 2400mcg 2,400 mcg PO DAILY 12/28/19 12/28/19 traZODone HCL 50 mg PO HS 12/28/19 12/28/19 Previous Rx's Medication Instructions Recorded Atorvastatin [Lipitor] 80 mg PO HS #90 tab 04/27/19 Allergies Allergy/AdvReac Type Severity Reaction Status Date / Time Beef Containing Products Allergy Unknown Verified 12/28/19 18:33 Milk Containing Products Allergy Unknown Verified 12/28/19 18:33 [Dairy] mold Allergy Dyspnea Verified 12/28/19 18:33 Penicillins Allergy Unknown Verified 12/28/19 18:33 Childhood pollen extracts Allergy Dyspnea Verified 12/28/19 18:33 procaine [From Novocain] Allergy Unknown Verified 12/28/19 18:33 Sulfa (Sulfonamide Allergy Unknown Verified 12/28/19 18:33 Antibiotics) tree and shrub pollen Allergy Dyspnea Verified 12/28/19 18:33 aspirin AdvReac Abdominal Verified 12/28/19 18:33 Pain celecoxib [From Celebrex] AdvReac Dyspnea Verified 12/28/19 18:33 Review of Systems ROS Statement: Those systems with pertinent positive or pertinent negative responses have been documented in the HPI. ROS Other: All systems not noted in ROS Statement are negative. Constitutional: Denies: fever Eyes: Denies: eye pain ENT: Denies: ear pain Respiratory: Denies: cough Cardiovascular: Reports: as per HPI, chest pain Endocrine: Reports: fatigue Gastrointestinal: Denies: abdominal pain Genitourinary: Denies: dysuria Musculoskeletal: Denies: arthralgia Skin: Denies: rash Neurological: Denies: weakness Past Medical History Past Medical History: Hyperlipidemia, Hypertension Additional Past Medical History / Comment(s): "leaky heart valve", palpitations, shortness of breath when climbing stairs, hx migraine History of Any Multi-Drug Resistant Organisms: None Reported Past Surgical History: Orthopedic Surgery Additional Past Surgical History / Comment(s): bilateral knee Past Anesthesia/Blood Transfusion Reactions: No Reported Reaction Past Psychological History: No Psychological Hx Reported Smoking Status: Never smoker Past Alcohol Use History: Occasional Past Drug Use History: None Reported - Past Family History Father Family Medical History: Cancer Additional Family Medical History / Comment(s): colon cancer General Exam Limitations: no limitations General appearance: alert, in no apparent distress Head exam: Present: normocephalic Eye exam: Present: normal appearance Neck exam: Present: normal inspection Respiratory exam: Present: normal lung sounds bilaterally. Absent: chest wall tenderness Cardiovascular Exam: Present: regular rate, normal rhythm Expanded Peripheral pulses: 2+: Radial (R), Radial (L), Dorsalis Pedis (R), Dorsalis Pedis (L) GI/Abdominal exam: Present: soft. Absent: tenderness Extremities exam: Present: normal inspection. Absent: pedal edema, calf tenderness Neurological exam: Present: alert Psychiatric exam: Present: normal affect, normal mood Skin exam: Present: normal color Course Vital Signs 12/28/19 12/28/19 12/28/19 17:14 18:28 19:01 Temperature 98.2 F Pulse Rate 66 67 68 Respiratory 16 18 18 Rate Blood Pressure 179/82 152/69 161/75 O2 Sat by Pulse 99 99 98 Oximetry - Reevaluation(s) Reevaluation #1: 12/28/19 17:40 Repeat EKG shows normal sinus rhythm at 60. MD 194. QRS 84. QT 414. QTC 414. Normal axis. LVH without acute ST change. EKG Findings - EKG Comments: EKG Findings:: Normal sinus rhythm 62. MD 188. QRS 86. QT 412. QTC 418. Left axis. LVH. No acute ST change. Medical Decision Making - Medical Decision Making Patient reevaluated and symptom-free following a trip glycerin paced. Patient family updated on results and plan. Case was discussed in detail with Dr. Jade, who will admit covering for Dr. Ge. - Lab Data Result diagrams: 12/28/19 17:32 12/28/19 17:32 Lab Results 12/28/19 12/28/19 12/28/19 Range/Units 17:32 17:32 17:32 WBC 7.0 (3.8-10.6) k/uL RBC 4.70 (3.80-5.40) m/uL Hgb 13.6 (11.4-16.0) gm/dL Hct 42.5 (34.0-46.0) % MCV 90.4 (80.0-100.0) fL MCH 29.0 (25.0-35.0) pg MCHC 32.1 (31.0-37.0) g/dL RDW 13.1 (11.5-15.5) % Plt Count 271 (150-450) k/uL Neutrophils % 62 % Lymphocytes % 26 % Monocytes % 7 % Eosinophils % 3 % Basophils % 1 % Neutrophils # 4.3 (1.3-7.7) k/uL Lymphocytes # 1.8 (1.0-4.8) k/uL Monocytes # 0.5 (0-1.0) k/uL Eosinophils # 0.2 (0-0.7) k/uL Basophils # 0.1 (0-0.2) k/uL Sodium 139 (137-145) mmol/L Potassium 4.6 (3.5-5.1) mmol/L Chloride 110 H (98-107) mmol/L Carbon Dioxide 22 (22-30) mmol/L Anion Gap 7 mmol/L BUN 24 H (7-17) mg/dL Creatinine 0.80 (0.52-1.04) mg/dL Est GFR (CKD-EPI)AfAm 82 (>60 ml/min/1.73 sqM) Est GFR (CKD-EPI)NonAf 71 (>60 ml/min/1.73 sqM) Glucose 91 (74-99) mg/dL Calcium 10.2 (8.4-10.2) mg/dL Magnesium 2.3 (1.6-2.3) mg/dL Total Bilirubin 0.5 (0.2-1.3) mg/dL AST 29 (14-36) U/L ALT 31 (4-34) U/L Alkaline Phosphatase 121 (38-126) U/L Troponin I <0.012 (0.000-0.034) ng/mL Total Protein 6.5 (6.3-8.2) g/dL Albumin 4.2 (3.5-5.0) g/dL - Radiology Data Radiology results: image reviewed (Chest x-ray shows no acute process) Disposition Clinical Impression: Chest pain Disposition: ADMITTED IP TO THIS HOSP Is patient prescribed a controlled substance at d/c from ED?: No Referrals: Sahara Ge MD [Primary Care Provider] - 1-2 days Decision Time: 19:25
[2019-12-28 18:39] LABS: Basophils # (A) 0.1 k/uL (0-0.2); Basophils % (A) 1 %; Eosinophils # (A) 0.2 k/uL (0-0.7); Eosinophils % (A) 3 %; HCT 42.5 % (34.0-46.0); HGB 13.6 gm/dL (11.4-16.0); Lymphocytes # (A) 1.8 k/uL (1.0-4.8); Lymphocytes % (A) 26 %; MCHC 32.1 g/dL (31.0-37.0); MCV 90.4 fL (80.0-100.0); Monocytes # (A) 0.5 k/uL (0-1.0); Monocytes % (A) 7 %; Neutrophils # (A) 4.3 k/uL (1.3-7.7); Neutrophils % (A) 62 %; Platelet Count 271 k/uL (150-450); RDW 13.1 % (11.5-15.5)
[2019-12-28 18:50] LABS: Albumin 4.2 g/dL (3.5-5.0); Calcium 10.2 mg/dL (8.4-10.2); Magnesium 2.3 mg/dL (1.6-2.3); Potassium 4.6 mmol/L (3.5-5.1); Total Bilirubin 0.5 mg/dL (0.2-1.3); Total Protein 6.5 g/dL (6.3-8.2)
--- NOTE | 2019-12-28 19:00 | XR ---
EXAMINATION TYPE: XR chest 2V DATE OF EXAM: 12/28/2019 COMPARISON: NONE HISTORY: Chest pain TECHNIQUE: FINDINGS: Heart is normal. Lungs are clear of infiltrate. There is no heart failure. Thoracic aorta i s atheromatous. There is osteopenia. There is mild anterior wedging of mid thoracic vertebra up to 25 %. IMPRESSION: No active cardiopulmonary disease. Normal heart.
[2019-12-28] MEDS ORDERED: NITROGLYCERIN SL TABS 0.4 MG TAB SUBLINGUAL PRN (19:25)
[2019-12-28 19:29] LABS: D-Dimer 0.43 mg/L FEU (<0.60); INR 0.9 (<1.2); Prothrombin Time 9.6 sec (9.0-12.0)
[2019-12-28 19:31] LABS: Partial Thromboplastin Time 21.1 sec (22.0-30.0)
[2019-12-28] MEDS ORDERED: ALBUTEROL NEBULIZED 2.5 MG/3 ML INHALATION PRN (20:41)
[2019-12-28] MEDS ORDERED: NON FORMULARY DRUG (Turmeric Root Extract [Turmeric] 500 MG Capsule) PO SCH (21:00)
[2019-12-28] MEDS ORDERED: NON FORMULARY DRUG (Glucosam/Chon-Msm1/C/Mang/Bosw [Glucosamine-Chondroitin-Msm Tb] 1 EACH PO SCH (21:00)
[2019-12-28] MEDS: ATORVASTATIN 80 MG TAB PO SCH (22:06)
[2019-12-28] MEDS: MONTELUKAST 10 MG TAB PO SCH (22:06)
[2019-12-28] MEDS: MELATONIN 5 MG TABLET PO SCH (22:06)
[2019-12-28] MEDS: traZODone HCL 50 MG TAB PO SCH (22:06)
[2019-12-28] MEDS: ASPIRIN 81 MG PO SCH (22:06)
[2019-12-28] MEDS: hydrALAZINE HCL 50 MG TAB PO SCH (22:06)
[2019-12-28] MEDS: atenoloL 25 MG TAB PO SCH (22:07)
[2019-12-28] MEDS: PANTOPRAZOLE 40 MG TABLET PO SCH (22:07)
[2019-12-29] MEDS: NITROGLYCERIN OINT 1 INCH/GM PACKET TOPICAL SCH ×2 (00:19→06:51)
[2019-12-29] MEDS: LEVOTHYROXINE 75 MCG TAB PO SCH (06:51)
[2019-12-29] MEDS ORDERED: PANTOPRAZOLE 40 MG TABLET PO SCH (07:30)
[2019-12-29 07:43] LABS: Basophils % (A) 1 %; Eosinophils # (A) 0.2 k/uL (0-0.7); Eosinophils % (A) 3 %; HCT 38.4 % (34.0-46.0); HGB 12.4 gm/dL (11.4-16.0); Lymphocytes # (A) 2.1 k/uL (1.0-4.8); Lymphocytes % (A) 29 %; MCH 29.7 pg (25.0-35.0); MCHC 32.4 g/dL (31.0-37.0); MCV 91.7 fL (80.0-100.0); Monocytes # (A) 0.5 k/uL (0-1.0); Monocytes % (A) 7 %; Neutrophils # (A) 4.2 k/uL (1.3-7.7); Neutrophils % (A) 58 %; Platelet Count 250 k/uL (150-450); RBC 4.19 m/uL (3.80-5.40); RDW 13.1 % (11.5-15.5); WBC 7.3 k/uL (3.8-10.6)
[2019-12-29 08:01] LABS: Albumin 3.1 g/dL (3.5-5.0); Calcium 9.3 mg/dL (8.4-10.2); Magnesium 2.1 mg/dL (1.6-2.3); Potassium 4.7 mmol/L (3.5-5.1); Total Bilirubin 0.6 mg/dL (0.2-1.3); Total Protein 5.3 g/dL (6.3-8.2)
[2019-12-29] MEDS ORDERED: AMINOPHYLLINE 500 MG/20 ML VIAL IV PRN (08:31)
[2019-12-29] MEDS ORDERED: CAFFEINE CITRATE 60 MG/3 ML VIAL IV PRN (08:31)
[2019-12-29] MEDS ORDERED: REGADENOSON 0.4 MG/5 ML SYRINGE IV ONE (08:31)
[2019-12-29] MEDS ORDERED: ARTIFICIAL TEARS-HYPROMELLOSE DROPS 15 ML BTL BOTH EYES PRN (09:00)
[2019-12-29] MEDS ORDERED: NON FORMULARY DRUG (Biotin [Biotin] 10,000 MCG Capsule) PO SCH (09:00)
[2019-12-29] MEDS ORDERED: DICLOFENAC SODIUM GEL 100 GM TUBE TOPICAL PRN (09:00)
[2019-12-29] MEDS ORDERED: NON FORMULARY DRUG (Fish Oil/Dha/Epa [Fish Oil 1,200 Mg Fish Oil] 1 EACH Capsule) PO SCH (09:00)
[2019-12-29] MEDS ORDERED: VITAMIN A 2400 MCG PO SCH (09:00)
[2019-12-29] MEDS ORDERED: NON FORMULARY DRUG (Potassium [Potassium] 99 MG Tablet) PO SCH (09:00)
[2019-12-29] MEDS: LOSARTAN 50 MG TAB PO SCH (09:11)
[2019-12-29] MEDS: VIT A,C & E-LUTEIN-MINERALS 1 EACH TAB PO SCH (09:11)
[2019-12-29] MEDS: ASCORBIC ACID 500 MG TAB PO SCH (09:11)
[2019-12-29] MEDS: hydrALAZINE HCL 50 MG TAB PO SCH ×2 (09:11→20:46)
[2019-12-29] MEDS: VITAMIN E (DL,TOCOPHERYL ACET) 400 UNIT CAP PO SCH (09:11)
[2019-12-29] MEDS: CHOLECALCIFEROL 1,000 UNIT TAB PO SCH (09:12)
[2019-12-29] MEDS: CLOPIDOGREL 75 MG TAB PO SCH (09:12)
[2019-12-29] MEDS: ZINC SULFATE 220 MG CAP PO SCH (09:12)
[2019-12-29] MEDS: SODIUM CHLORIDE 0.9% 1,000 ML IV SCH ×2 (09:13→20:38)
[2019-12-29] MEDS ORDERED: AMINOPHYLLINE 500 MG/20 ML VIAL IV ONE (10:20)
--- NOTE | 2019-12-29 10:56 | P.CRDCN ---
History of Present Illness History of present illness: HISTORY OF PRESENTING ILLNESS This is a pleasant 79-year-old female past medical history significant for coronary artery disease status post PCI to the circumflex artery in April 2019 with intermediate disease of the mid LAD and normal LV systolic function, hypertension, dyslipidemia and intermediate bilateral carotid artery disease. She follows in the office with Dr. Beauchamp. We have been asked to see in consultation for chest pain. She states yesterday while she was unloading groceries at home she noticed a discomfort in the left precordial region with radiation around to the back and discomfort in the right shoulder and right upper arm. She states she had no associated shortness of breath, dizziness, palpitations, nausea, vomiting or diaphoresis. Her symptoms have improved since admission. She has had no further chest discomfort. DIAGNOSTICS EKG reveals sinus mechanism with no acute ischemic changes. Chest xray negative for any acute cardiopulmonary process. Laboratory reviewed, CBC unremarkable, d-dimer 0.43, sodium 139, potassium 4.7, creatinine 0.77, magnesium 2.1, cardiac enzymes negative 3, NT proBNP 221, LDL 39, HDL 59 and TSH 1.52. Current cardiac medications include aspirin 81 mg daily, atorvastatin 80 mg daily, Plavix 75 mg daily, irbesartan 300 mg daily, atenolol 25 mg twice a day and hydralazine 50 mg twice a day. Most recent echocardiogram obtained in 2019 revealed preserved LV systolic function with ejection fraction 60-65%, moderate concentric LVH, severely dilated left atrium, moderate to severe MR and mild tricuspid regurgitation noted. She also underwent a NIVIA in 2019 revealing normal LV systolic function, thickened mitral valve leaflets with moderate MR and thickened tricuspid leaflets with moderate TR. REVIEW OF SYSTEMS At the time of my exam: CONSTITUTIONAL: Denies fever or chills. CARDIOVASCULAR: Denies chest pain, shortness of breath, orthopnea, PND or palpitations. RESPIRATORY: Denies cough. GASTROINTESTINAL: Denies abdominal pain, diarrhea, constipation, nausea or vomiting. MUSCULOSKELETAL: Denies myalgias. NEUROLOGIC: Denies numbness, tingling or weakness. ENDOCRINE: Denies fatigue, weight change, polydipsia or polyurina. GENITOURINARY: Denies burning, hematuria or urgency with micturation. HEMATOLOGIC: Denies history of anemia or bleeding. PHYSICAL EXAMINATION Blood pressure 124/72 heart rate 69 afebrile and maintaining oxygen saturation on room air. CONSTITUTIONAL: No apparent distress. HEENT: Head is normocephalic. Pupils are equal, round. Sclerae anicteric. Mucous membranes of the mouth are moist. No JVD. No carotid bruit. CHEST EXAMINATION: Lungs are clear to auscultation. No chest wall tenderness is noted on palpation or with deep breathing. HEART EXAMINATION: Regular rate and rhythm. S1, S2 heard. Systolic ejection murmur at the apex, no gallops or rub. ABDOMEN: Soft, nontender. Positive bowel sounds. EXTREMITIES: 2+ peripheral pulses, no lower extremity edema and no calf tende rness. NEUROLOGIC EXAMINATION: Patient is awake, alert and oriented x3. ASSESSMENT Chest pain, an acute coronary event has been ruled out Coronary artery disease status post PCI of the circumflex artery 04/2019 maintained on dual antiplatelet therapy Hypertension Dyslipidemia Peripheral vascular disease PLAN An acute event has been ruled out. Obtain 2D echocardiogram and doppler study to assess cardiac structure and function. Perform Lexiscan stress test to assess for reversible cardiac ischemia. If stress test is abnormal we will consider coronary angiography. Thank you kindly for this consultation. Nurse Practitioner note has been reviewed, I agree with a documented findings and plan of care. Patient was seen and examined. Past Medical History Past Medical History: Hyperlipidemia, Hypertension Additional Past Medical History / Comment(s): "leaky heart valve", palpitations, shortness of breath when climbing stairs, hx migraine History of Any Multi-Drug Resistant Organisms: None Reported Past Surgical History: Orthopedic Surgery Additional Past Surgical History / Comment(s): bilateral knee Past Anesthesia/Blood Transfusion Reactions: No Reported Reaction Past Psychological History: No Psychological Hx Reported Smoking Status: Never smoker Past Alcohol Use History: Occasional Past Drug Use History: None Reported - Past Family History Father Family Medical History: Cancer Additional Family Medical History / Comment(s): colon cancer Medications and Allergies Home Medications Medication Instructions Recorded Confirmed Type Irbesartan 300 mg PO DAILY 11/24/13 12/28/19 History Levothyroxine Sodium [Synthroid] 75 mcg PO MOTUWETHFRSA 11/24/13 12/28/19 History Ascorbic Acid [Vitamin C with Julissa 500 mg PO DAILY 01/20/19 12/28/19 History Hips] Cholecalciferol (Vitamin D3) 2,000 unit PO DAILY 01/20/19 12/28/19 History [Vitamin D3] Diclofenac Sodium [Voltaren Gel] 1 applic TOPICAL DAILY PRN 01/20/19 12/28/19 History Lansoprazole [Prevacid] 15 mg PO HS 01/20/19 12/28/19 History Levothyroxine Sodium [Synthroid] 112.5 mcg PO BOUDREAUX 01/20/19 12/28/19 History Lutein 40 mg PO DAILY 01/20/19 12/28/19 History Melatonin 10 mg PO HS 01/20/19 12/28/19 History Montelukast [Singulair] 10 mg PO HS 01/20/19 12/28/19 History Turmeric Root Extract [Turmeric] 1,000 mg PO BID 01/20/19 12/28/19 History Vitamin E (Dl,Tocopheryl Acet) 400 unit PO DAILY 01/20/19 12/28/19 History [Vitamin E] Zinc Gluconate [Zinc] 50 mg PO DAILY 01/20/19 12/28/19 History atenoloL [Tenormin] 25 mg PO BID 01/20/19 12/28/19 History hydrALAZINE HCL [Apresoline] 50 mg PO BID 01/20/19 12/28/19 History Aspirin [Adult Low Dose Aspirin EC] 81 mg PO HS 02/17/19 12/28/19 History Fluticasone Nasal [place] [Flonase 1 spray EA NOSTRIL DAILY 02/17/19 12/28/19 History Nasal [place]] Glucosam/Niko-Msm1/C/Georges/Bosw 1 tab PO BID 02/17/19 12/28/19 History [Klxyxhjcgod-Zvpmvyokftb-XKF Tb] Propylene Glycol/Peg 400/Pf 1 drop BOTH EYES DAILY PRN 02/17/19 12/28/19 History [Systane 0.3-0.4% Eye Drop] Potassium 99 mg PO DAILY 04/22/19 12/28/19 History Atorvastatin [Lipitor] 80 mg PO HS #90 tab 04/27/19 12/28/19 Rx Albuterol Sulfate [Proair 2 puff INHALATION RT-Q4H PRN 12/28/19 12/28/19 History Respiclick] Biotin 10,000 mcg PO DAILY 12/28/19 12/28/19 History Clopidogrel Bisulfate [Plavix] 75 mg PO DAILY 12/28/19 12/28/19 History Fish Oil/Dha/Epa [Fish Oil 1,200 1 cap PO DAILY 12/28/19 12/28/19 History mg Fish Oil] Vitamin A 2400mcg 2,400 mcg PO DAILY 12/28/19 12/28/19 History traZODone HCL 50 mg PO HS 12/28/19 12/28/19 History Nitroglycerin Sl Tabs [Nitrostat] 0.4 mg SUBLINGUAL Q5M PRN #25 tab 12/29/19 Rx Allergies Allergy/AdvReac Type Severity Reaction Status Date / Time Beef Containing Products Allergy Unknown Verified 12/28/19 18:33 Milk Containing Products Allergy Unknown Verified 12/28/19 18:33 [Dairy] mold Allergy Dyspnea Verified 12/28/19 18:33 Penicillins Allergy Unknown Verified 12/28/19 18:33 Childhood pollen extracts Allergy Dyspnea Verified 12/28/19 18:33 procaine [From Novocain] Allergy Unknown Verified 12/28/19 18:33 Sulfa (Sulfonamide Allergy Unknown Verified 12/28/19 18:33 Antibiotics) tree and shrub pollen Allergy Dyspnea Verified 12/28/19 18:33 aspirin AdvReac Abdominal Verified 12/28/19 18:33 Pain celecoxib [From Celebrex] AdvReac Dyspnea Verified 12/28/19 18:33 Physical Exam Vitals: Vital Signs Temp Pulse Pulse Resp BP BP Pulse Ox 12/29/19 08:11 69 16 12/29/19 07:56 97.4 F L 69 16 124/72 96 12/29/19 03:00 98.2 F 70 18 111/67 97 12/28/19 21:00 73 16 161/75 99 12/28/19 20:47 98.2 F 68 18 139/66 98 12/28/19 20:00 72 16 161/75 99 12/28/19 19:01 68 18 161/75 98 12/28/19 19:00 65 16 152/69 99 12/28/19 18:28 67 18 152/69 99 12/28/19 18:00 62 16 152/69 99 12/28/19 17:14 98.2 F 66 16 179/82 99 Intake and Output 12/28/19 12/29/19 12/29/19 22:59 06:59 14:59 Intake Total 450 0 Balance 450 0 Intake: Oral 450 0 Other: Voiding Method Toilet Toilet Toilet # Voids 1 2 Weight 61.689 kg Results 12/29/19 07:01 12/29/19 07:01 Cardiac Enzymes 12/28/19 12/28/19 12/28/19 Range/Units 17:32 17:32 20:23 AST 29 (14-36) U/L Troponin I <0.012 <0.012 (0.000-0.034) ng/mL 12/28/19 12/29/19 Range/Units 23:37 07:01 AST 24 (14-36) U/L Troponin I <0.012 (0.000-0.034) ng/mL Coagulation 12/28/19 Range/Units 17:32 PT 9.6 (9.0-12.0) sec APTT 21.1 L (22.0-30.0) sec Lipids 12/29/19 Range/Units 07:01 Triglycerides 80 (<150) mg/dL Cholesterol 114 (<200) mg/dL HDL Cholesterol 59 (40-60) mg/dL CBC 12/28/19 12/29/19 Range/Units 17:32 07:01 WBC 7.0 7.3 (3.8-10.6) k/uL RBC 4.70 4.19 (3.80-5.40) m/uL Hgb 13.6 12.4 (11.4-16.0) gm/dL Hct 42.5 38.4 (34.0-46.0) % Plt Count 271 250 (150-450) k/uL Comprehensive Metabolic Panel 12/28/19 12/29/19 Range/Units 17:32 07:01 Sodium 139 139 (137-145) mmol/L Potassium 4.6 4.7 (3.5-5.1) mmol/L Chloride 110 H 112 H (98-107) mmol/L Carbon Dioxide 22 25 (22-30) mmol/L BUN 24 H 22 H (7-17) mg/dL Creatinine 0.80 0.77 (0.52-1.04) mg/dL Glucose 91 88 (74-99) mg/dL Calcium 10.2 9.3 (8.4-10.2) mg/dL AST 29 24 (14-36) U/L ALT 31 26 (4-34) U/L Alkaline Phosphatase 121 84 (38-126) U/L Total Protein 6.5 5.3 L (6.3-8.2) g/dL Albumin 4.2 3.1 L (3.5-5.0) g/dL Current Medications Generic Name Dose Route Start Last Admin Trade Name Freq PRN Reason Stop Dose Admin Albuterol Sulfate 2.5 mg 12/28/19 20:41 Albuterol Nebulized 2.5 Mg/3 Ml INHALATION RT-Q4H PRN Shortness Of Breath Aminophylline 100 mg 12/29/19 08:31 Aminophylline 500 Mg/20 Ml Vial IV ONCE PRN Patient Response Artificial Tears 1 drops 12/29/19 09:00 Artificial Tears-Hypromellose Drops 15 Ml Btl BOTH EYES DAILY PRN dry eyes Ascorbic Acid 500 mg 12/29/19 09:00 12/29/19 09:11 Ascorbic Acid 500 Mg Tab PO 500 mg DAILY AIMEE Administration Aspirin 81 mg 12/28/19 21:00 12/28/19 22:06 Aspirin 81 Mg PO 81 mg HS AIMEE Administration Atenolol 25 mg 12/28/19 22:00 12/28/19 22:07 Atenolol 25 Mg Tab PO 25 mg BID AIMEE Administration Atorvastatin Calcium 80 mg 12/28/19 22:00 12/28/19 22:06 Atorvastatin 80 Mg Tab PO 80 mg HS AIMEE Administration Caffeine Citrate 60 mg 12/29/19 08:31 Caffeine Citrate 60 Mg/3 Ml Vial IV 12/30/19 08:32 ONCE PRN Patient Response Cholecalciferol 2,000 unit 12/29/19 09:00 12/29/19 09:12 Cholecalciferol 1,000 Unit Tab PO 2,000 unit DAILY AIMEE Administration Clopidogrel Bisulfate 75 mg 12/29/19 09:00 12/29/19 09:12 Clopidogrel 75 Mg Tab PO 75 mg DAILY AIMEE Administration Diclofenac Sodium 2 gm 12/29/19 09:00 Diclofenac Sodium Gel 100 Gm Tube TOPICAL DAILY PRN Pain Fluticasone Propionate 1 spray 12/29/19 09:00 Fluticasone 50mcg/[place] Nasal 16gm EA NOSTRIL DAILY AIMEE Hydralazine HCl 50 mg 12/28/19 22:00 12/29/19 09:11 Hydralazine Hcl 50 Mg Tab PO 50 mg BID AIMEE Administration Sodium Chloride 1,000 mls @ 100 mls/hr 12/29/19 09:15 12/29/19 09:13 Saline 0.9% IV 100 mls/hr .Q10H AIMEE Administration Levothyroxine Sodium 112 mcg 01/01/20 06:30 Levothyroxine 112 Mcg Tab PO [email or web address] AIMEE Levothyroxine Sodium 75 mcg 12/29/19 06:30 12/29/19 06:51 Levothyroxine 75 Mcg Tab PO 75 mcg [id number] AIMEE Administration Losartan Potassium 100 mg 12/29/19 09:00 12/29/19 09:11 Losartan 50 Mg Tab PO 100 mg DAILY AIMEE Administration Melatonin 10 mg 12/28/19 21:00 12/28/19 22:06 Melatonin 5 Mg Tablet PO 10 mg HS AIMEE Administration Montelukast Sodium 10 mg 12/28/19 21:00 12/28/19 22:06 Montelukast 10 Mg Tab PO 10 mg HS AIMEE Administration Multivitamins/Minerals 1 each 12/29/19 09:00 12/29/19 09:11 Vit A,C & Y-Buasyh-Jjustbwd 1 Each Tab PO 1 each DAILY AIMEE Administration Nitroglycerin 0.4 mg 12/28/19 19:25 Nitroglycerin Sl Tabs 0.4 Mg Tab SUBLINGUAL Q5M PRN Chest Pain Pantoprazole Sodium 40 mg 12/28/19 22:00 12/28/19 22:07 Pantoprazole 40 Mg Tablet PO 40 mg HS AIMEE Administration Sodium Chloride 10 ml 12/28/19 21:00 12/29/19 09:12 Sodium Chloride 0.9% Flush 10 Ml Syringe IV 10 ml BID AIMEE Administration Trazodone HCl 50 mg 12/28/19 22:00 12/28/19 22:06 Trazodone Hcl 50 Mg Tab PO 50 mg HS AIMEE Administration Vitamin E 400 unit 12/29/19 09:00 12/29/19 09:11 Vitamin E (Dl,Tocopheryl Acet) 400 Unit Cap PO 400 unit DAILY AIMEE Administration Zinc Sulfate 220 mg 12/29/19 09:00 12/29/19 09:12 Zinc Sulfate 220 Mg Cap PO 220 mg DAILY AIMEE Administration Intake and Output 12/28/19 12/29/19 12/29/19 22:59 06:59 14:59 Intake Total 450 0 Balance 450 0 Intake: Oral 450 0 Other: Voiding Method Toilet Toilet Toilet # Voids 1 2 Weight 61.689 kg 12/29/19 07:01 12/29/19 07:01
--- NOTE | 2019-12-29 11:27 | P.HPIM ---
History of Present Illness H&P Date: 12/29/19 Chief Complaint: Chest pain HISTORY OF PRESENT ILLNESS This is a 79-year-old female patient of Dr. Ge and Dr. Beauchamp with past medical history of coronary artery disease with recent stent to the circumflex artery in April 2019 with intermediate disease of the mid LAD and normal LV systolic function, hypertension, dyslipidemia and intermediate bilateral carotid artery disease. NIVIA in 2019 revealing normal LV systolic function, thickened mitral valve leaflets with moderate MR and thickened tricuspid leaflets with moderate TR. Patient states that she was carrying groceries yesterday and developed chest pain that went on a band across the front of her chest around on the right side and up into the right side of her neck. She states she sat down and her breathing was still labored but the pain went away. She did not take any nitroglycerin. Patient was brought in the hospital by her . EKG was sinus rhythm without any acute ST changes. Chest x-ray showed no acute cardiopulmonary process. CBC unremarkable, d-dimer 0.43, sodium 139, potassium 4.7, creatinine 0.77, magnesium 2.1, troponins negative 3, NT proBNP 221, LDL 39, HDL 59 and TSH 1.52. The patient relates that she has been under a lot of stress and her recently had a fall with no fracture. Patient was placed on the observation unit and cardiology consult was obtained. Patient is having Lexiscan stress test and echocardiogram. Patient does not have any active chest pain at the time of evaluation. REVIEW OF SYSTEMS Constitutional: No fever, no chills, no night sweats. No weight change. No weakness, fatigue or lethargy. No daytime sleepiness. EENT: No headache. No blurred vision or double vision, no loss of vision. No loss of Hearing, no ringing in the ears, no dizziness. No nasal drainage or congestion. No epistaxis. No sore throat. Lungs: No shortness of breath, cough, no sputum production. No wheezing. Cardiovascular: No chest pain, no lower extremity edema. No palpitations. No paroxysmal nocturnal dyspnea. No orthopnea. No lightheadedness or dizziness. No syncopal episodes. Abdominal: No abdominal pain. No nausea, vomiting. No diarrhea. No constipation. No bloody or tarry stools.. No loss of appetite. Genitourinary: No dysuria, increased frequency, urgency. No urinary retention. Musculoskeletal: No myalgias. No muscle weakness, no gait dysfunction, no frequent falls. No back pain. No neck pain. Integumentary: No wounds, no lesions. No rash or pruritus. No unusual brui sing. No change in hair or nails. Neurologic: No aphasia. No facial droop. No change in mentation. No head injury. No headache. No paralysis. No paresthesia. Psychiatric: No depression. No anxiety. No mood swings. Endocrine: No abnormal blood sugars. No weight change. No excessive sweating or thirst. No cold intolerance. SOCIAL HISTORY Patient is a lifelong nonsmoker. No marijuana, street drug use or alcohol use. She lives at home with her . She worked in the past at [employer] [place] for [employer]. 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 She has been retired for a number of years. She moved to [facility] in 2004 to be closer to her daughter. FAMILY HISTORY Mother at age 67 from COPD with history of smoking. Father at age 74 from colon cancer. Patient has one sister with multiple multiple skeletal issues living in [place]. Patient does not have any brothers. Patient has 2 children with no major medical problems. PHYSICAL EXAMINATION Gen: This is this is a 79-year-old female, resting in bed and appears to be comfortable and in no acute distress. HEENT: Head is atraumatic, normocephalic. Pupils equal, round. Sclerae is anicteric. NECK: Supple. No JVD. No lymphadenopathy. No thyromegaly. LUNGS: Clear to auscultation. No wheezes or rhonchi. No intercostal retractions. HEART: Regular rate and rhythm. Systolic ejection murmur. ABDOMEN: Soft. Bowel sounds are present. No masses. No tenderness. EXTREMITIES: No pedal edema. No calf tenderness. Dorsalis pedis +2 bilaterally. NEUROLOGICAL: Patient is awake, alert and oriented x3. Cranial nerves 2 through 12 are grossly intact. ASSESSMENT AND PLAN 1. Chest pain, acute coronary syndrome ruled out. Discussed possibly related to stress. Discussed this with the patient and she does not wish to start any type of medication at this time but will be readdressed in the office. 2. History of coronary artery disease with stenting of circumflex artery in April with Dr. Skaf. 3. Hypertension. 4. Hyperlipidemia. 5. History of carotid artery disease. 6. Family history of colon cancer, patient's colonoscopy is performed every 3 years, up to date. 7. DVT prophylaxis. Early ambulation. 8. GI prophylaxis. Pepcid. Patient placed on the observation unit. Discharge plan: Home. Impression and plan of care have been directed as dictated by the signing ph ysician. Dolores Peters nurse practitioner acting as scribe for signing physician. Past Medical History Past Medical History: Hyperlipidemia, Hypertension Additional Past Medical History / Comment(s): "leaky heart valve", palpitations, shortness of breath when climbing stairs, hx migraine History of Any Multi-Drug Resistant Organisms: None Reported Past Surgical History: Orthopedic Surgery Additional Past Surgical History / Comment(s): bilateral knee Past Anesthesia/Blood Transfusion Reactions: No Reported Reaction Past Psychological History: No Psychological Hx Reported Smoking Status: Never smoker Past Alcohol Use History: Occasional Past Drug Use History: None Reported - Past Family History Father Family Medical History: Cancer Additional Family Medical History / Comment(s): colon cancer Medications and Allergies Home Medications Medication Instructions Recorded Confirmed Type Irbesartan 300 mg PO DAILY 11/24/13 12/28/19 History Levothyroxine Sodium [Synthroid] 75 mcg PO MOTUWETHFRSA 11/24/13 12/28/19 History Ascorbic Acid [Vitamin C with Julissa 500 mg PO DAILY 01/20/19 12/28/19 History Hips] Cholecalciferol (Vitamin D3) 2,000 unit PO DAILY 01/20/19 12/28/19 History [Vitamin D3] Diclofenac Sodium [Voltaren Gel] 1 applic TOPICAL DAILY PRN 01/20/19 12/28/19 History Lansoprazole [Prevacid] 15 mg PO HS 01/20/19 12/28/19 History Levothyroxine Sodium [Synthroid] 112.5 mcg PO BOUDREAUX 01/20/19 12/28/19 History Lutein 40 mg PO DAILY 01/20/19 12/28/19 History Melatonin 10 mg PO HS 01/20/19 12/28/19 History Montelukast [Singulair] 10 mg PO HS 01/20/19 12/28/19 History Turmeric Root Extract [Turmeric] 1,000 mg PO BID 01/20/19 12/28/19 History Vitamin E (Dl,Tocopheryl Acet) 400 unit PO DAILY 01/20/19 12/28/19 History [Vitamin E] Zinc Gluconate [Zinc] 50 mg PO DAILY 01/20/19 12/28/19 History atenoloL [Tenormin] 25 mg PO BID 01/20/19 12/28/19 History hydrALAZINE HCL [Apresoline] 50 mg PO BID 01/20/19 12/28/19 History Aspirin [Adult Low Dose Aspirin EC] 81 mg PO HS 02/17/19 12/28/19 History Fluticasone Nasal [place] [Flonase 1 spray EA NOSTRIL DAILY 02/17/19 12/28/19 History Nasal [place]] Glucosam/Niko-Msm1/C/Georges/Bosw 1 tab PO BID 02/17/19 12/28/19 History [Sxiymwzccto-Togpanyfsov-OCI Tb] Propylene Glycol/Peg 400/Pf 1 drop BOTH EYES DAILY PRN 02/17/19 12/28/19 History [Systane 0.3-0.4% Eye Drop] Potassium 99 mg PO DAILY 04/22/19 12/28/19 History Atorvastatin [Lipitor] 80 mg PO HS #90 tab 04/27/19 12/28/19 Rx Albuterol Sulfate [Proair 2 puff INHALATION RT-Q4H PRN 12/28/19 12/28/19 History Respiclick] Biotin 10,000 mcg PO DAILY 12/28/19 12/28/19 History Clopidogrel Bisulfate [Plavix] 75 mg PO DAILY 12/28/19 12/28/19 History Fish Oil/Dha/Epa [Fish Oil 1,200 1 cap PO DAILY 12/28/19 12/28/19 History mg Fish Oil] Vitamin A 2400mcg 2,400 mcg PO DAILY 12/28/19 12/28/19 History traZODone HCL 50 mg PO HS 12/28/19 12/28/19 History Nitroglycerin Sl Tabs [Nitrostat] 0.4 mg SUBLINGUAL Q5M PRN #25 tab 12/29/19 Rx Allergies Allergy/AdvReac Type Severity Reaction Status Date / Time Beef Containing Products Allergy Unknown Verified 12/28/19 18:33 Milk Containing Products Allergy Unknown Verified 12/28/19 18:33 [Dairy] mold Allergy Dyspnea Verified 09/16/20 18:33 Penicillins Allergy Unknown Verified 12/28/19 18:33 Childhood pollen extracts Allergy Dyspnea Verified 12/28/19 18:33 procaine [From Novocain] Allergy Unknown Verified 12/28/19 18:33 Sulfa (Sulfonamide Allergy Unknown Verified 12/28/19 18:33 Antibiotics) tree and shrub pollen Allergy Dyspnea Verified 12/28/19 18:33 aspirin AdvReac Abdominal Verified 12/28/19 18:33 Pain celecoxib [From Celebrex] AdvReac Dyspnea Verified 12/28/19 18:33 Physical Exam Vitals: Vital Signs Temp Pulse Pulse Resp BP BP Pulse Ox 12/29/19 03:00 98.2 F 70 18 111/67 97 12/28/19 21:00 73 16 161/75 99 12/28/19 20:47 98.2 F 68 18 139/66 98 12/28/19 20:00 72 16 161/75 99 12/28/19 19:01 68 18 161/75 98 12/28/19 19:00 65 16 152/69 99 12/28/19 18:28 67 18 152/69 99 12/28/19 18:00 62 16 152/69 99 12/28/19 17:14 98.2 F 66 16 179/82 99 Intake and Output 12/28/19 12/29/19 12/29/19 22:59 06:59 14:59 Intake Total 450 0 Balance 450 0 Intake: Oral 450 0 Other: Voiding Method Toilet Toilet # Voids 1 2 Weight 61.689 kg Results CBC & Chem 7: 12/29/19 07:01 12/29/19 07:01 Labs: Abnormal Lab Results - Last 24 Hours (Table) 12/28/19 12/28/19 Range/Units 17:32 17:32 APTT 21.1 L (22.0-30.0) sec Chloride 110 H (98-107) mmol/L BUN 24 H (7-17) mg/dL
[2019-12-29] MEDS: atenoloL 25 MG TAB PO SCH ×2 (11:38→20:46)
[2019-12-29] MEDS: FLUTICASONE 50MCG/SPRAY NASAL 16GM EA NOSTRIL SCH (11:38)
--- NOTE | 2019-12-29 11:46 | NM ---
EXAMINATION TYPE: NM stress lexiscan cardiolite DATE OF EXAM: 12/29/2019 COMPARISON: NONE HISTORY: Chest pain TECHNIQUE: After the intravenous administration of 10.95 mCi Tc 99m Sestamibi - Cardiolite resting S PECT images acquired 45 minutes post injection. The patient received 0.4mg Lexiscan, 25.9 mCi Tc 99m Sestamibi - Stress images obtained [address] injection FINDINGS: SPECT imaging appears within normal limits. On Polar maps there is some mild diminished radiotracer accumulation along the inferior lateral wall . This appears improved on the resting images. This is not as apparent the SPECT imaging. Wall motion is normal. Ejection fraction is 61% is normal IMPRESSION: Polar maps suggest a may be some mild stress-induced ischemic change along the inferior lateral wall not clearly identified on SPECT imaging. No additional areas suspicious for stress-induced ischemic c hanges are evident.
[2019-12-29] MEDS ORDERED: LORATADINE-PSEUDOEPH 5-120 MG 1 EACH TAB.ER.12H PO SCH (12:00)
[2019-12-29] MEDS: LORATADINE 10 MG TAB PO SCH (12:08)
[2019-12-29] MEDS ORDERED: ALPRAZolam 0.25 MG TAB PO PRN (12:42)
[2019-12-29] MEDS ORDERED: ALPRAZolam 0.5 MG TAB PO PRN (12:42)
--- NOTE | 2019-12-29 14:04 | EST ---
EXERCISE STRESS AGE: 79 SEX: F HT: 5'4" WT: 136 lbs. PROTOCOL: Lexiscan Cardiolite STAGE: DURATION OF EXERCISE: HEART RATE REST: 69 BLOOD PRESSURE REST: 171/73 MAXIMUM HEART RATE ACHIEVED: 93 MAXIMUM BLOOD PRESSURE: 186/93 85% MPHR: 121 100% MPHR: 142 METS: INDICATIONS: Chest pain. CLINICAL INFORMATION: Patient was administered Lexiscan as per protocol. She complained of significant nausea. Baseline EKG revealed sinus mechanism without significant ST-T changes. Rare PVCs were noted. With Lexiscan administration, heart rate changed from 69-92 beats per minute, blood pressure changed from 171/73 to 153/72. EKG remained unremarkable. Patient had some bradycardia following an episode of nausea with a 2-1 block, but that was very transient and this was related to nausea. By EKG criteria, this is unremarkable Lexiscan stress test. Patient had unpleasant reaction to Lexiscan with nausea and transient 2-1 block with a narrow QRS. The nuclear scan results which are more pertinent will be reported by the radiologist. MMODL / IJN: [id number] /
[2019-12-29] MEDS: PANTOPRAZOLE 40 MG TABLET PO SCH (20:46)
[2019-12-29] MEDS: ATORVASTATIN 80 MG TAB PO SCH (20:46)
[2019-12-29] MEDS: MELATONIN 5 MG TABLET PO SCH (20:46)
[2019-12-29] MEDS: MONTELUKAST 10 MG TAB PO SCH (20:46)
[2019-12-29] MEDS: ASPIRIN 81 MG PO SCH (20:46)
[2019-12-29] MEDS: SODIUM CHLORIDE 0.9% 1,000 ML in EMPTY BAG 1 BAG IV ONE ×2 (21:38→21:40)
[2019-12-29] MEDS: traZODone HCL 50 MG TAB PO SCH (21:44)
[2019-12-30] MEDS: SODIUM CHLORIDE 0.9% 1,000 ML IV SCH (05:40)
[2019-12-30] MEDS: FAMOTIDINE 20 MG TAB PO SCH (06:21)
[2019-12-30] MEDS: CHOLECALCIFEROL 1,000 UNIT TAB PO SCH (06:21)
[2019-12-30] MEDS: LOSARTAN 50 MG TAB PO SCH (06:21)
[2019-12-30] MEDS: ASCORBIC ACID 500 MG TAB PO SCH (06:21)
[2019-12-30] MEDS: hydrALAZINE HCL 50 MG TAB PO SCH ×2 (06:21→20:14)
[2019-12-30] MEDS: CLOPIDOGREL 75 MG TAB PO SCH (06:21)
[2019-12-30] MEDS: atenoloL 25 MG TAB PO SCH ×2 (06:22→20:15)
[2019-12-30] MEDS: LEVOTHYROXINE 75 MCG TAB PO SCH (06:22)
[2019-12-30] MEDS: LORATADINE 10 MG TAB PO SCH (06:22)
[2019-12-30] MEDS: FLUTICASONE 50MCG/SPRAY NASAL 16GM EA NOSTRIL SCH (06:22)
[2019-12-30] MEDS: VITAMIN E (DL,TOCOPHERYL ACET) 400 UNIT CAP PO SCH (06:23)
[2019-12-30] MEDS: ZINC SULFATE 220 MG CAP PO SCH (06:23)
[2019-12-30] MEDS: VIT A,C & E-LUTEIN-MINERALS 1 EACH TAB PO SCH (06:23)
[2019-12-30 06:51] LABS: Glucose,Whole Blood 102 mg/dL (75-99)
[2019-12-30] MEDS: MAG HYDROX/AL HYDROX/SIMETH 30 ML CUP PO SCH ×4 (08:39→21:49)
[2019-12-30] MEDS ORDERED: ASPIRIN 81 MG PO ONE ×2 (09:00)
--- NOTE | 2019-12-30 11:02 | P.PN ---
Subjective HISTORY OF PRESENTING ILLNESS This is a pleasant 79-year-old female past medical history significant for coronary artery disease status post PCI to the circumflex artery in April 2019 with intermediate disease of the mid LAD and normal LV systolic function, hypertension, dyslipidemia and intermediate bilateral carotid artery disease. She follows in the office with Dr. Beauchamp. Stress test results reveal mild stress-induced ischemic change along the inferior lateral wall. These results were discussed with the patient and her family in detail yesterday. She is scheduled to undergo cardiac catheterization today with Dr. Beauchamp. She has had no further symptoms of chest discomfort. Blood pressure 162/80 heart rate 64 afebrile maintaining oxygen saturation on room air. PHYSICAL EXAMINATION CONSTITUTIONAL: No apparent distress. HEENT: Head is normocephalic. Pupils are equal, round. Sclerae anicteric. Mucous membranes of the mouth are moist. No JVD. No carotid bruit. CHEST EXAMINATION: Lungs are clear to auscultation. No chest wall tenderness is noted on palpation or with deep breathing. HEART EXAMINATION: Regular rate and rhythm. S1, S2 heard. Systolic ejection murmur at the apex, no gallops or rub. EXTREMITIES: 2+ peripheral pulses, no lower extremity edema and no calf tenderness. ASSESSMENT Chest pain, an acute coronary event has been ruled out Coronary artery disease status post PCI of the circumflex artery 04/2019 maintained on dual antiplatelet therapy Hypertension Dyslipidemia Peripheral vascular disease PLAN Recommend proceeding with cardiac catheterization for definitive diagnosis of progression of underlying coronary artery disease. I have discussed the risks, benefits and alternative therapies for the above-mentioned procedure and for both sedation/analgesia as well as necessary blood product administration, if indicated, as they pertain to this patient. The patient has indicated understanding and acceptance of the risks and procedures discussed. Questions have been answered appropriately and she is agreeable to move forward with the above stated procedure. Nurse Practitioner note has been reviewed, I agree with a documented findings and plan of care. Patient was seen and examined. Objective - Vital Signs Vital signs: Vital Signs Temp 97.8 F 12/30/19 07:35 Pulse 64 12/30/19 09:00 Resp 16 12/30/19 09:00 BP 162/80 12/30/19 07:35 Pulse Ox 98 12/30/19 07:35 Intake & Output 12/29/19 12/30/19 12/30/19 18:59 06:59 18:59 Intake Total 150 Balance 150 Weight 61.69 kg Intake: Oral 150 Other: Voiding Method Toilet Toilet Toilet # Voids 2 1 1 - Labs CBC & Chem 7: 12/29/19 07:01 12/29/19 07:01 Labs: Abnormal Lab Results - Last 24 Hours (Table) 12/30/19 Range/Units 06:48 POC Glucose (mg/dL) 102 H (75-99) mg/dL
[2019-12-30] MEDS ORDERED: IV FLUID CONTINUATION 1,000 ML IV ONE (13:15)
[2019-12-30] MEDS ORDERED: MIDAZOLAM 2 MG/2 ML VIAL IV ONE (13:21)
[2019-12-30] MEDS ORDERED: LIDOCAINE 1% INJ 10MG/ML (20 ML MDV) SQ ONE (13:30)
[2019-12-30] MEDS ORDERED: BIVALIRUDIN BOLUS 250 MG/50 ML IV ONE (13:40)
[2019-12-30] MEDS ORDERED: BIVALIRUDIN 250 MG in SODIUM CHLORIDE 0.9% 50 ML IV ONE (13:41)
[2019-12-30] MEDS ORDERED: IOPAMIDOL-370 100ML BTL INJ ONE ×2 (13:42→14:05)
[2019-12-30] MEDS ORDERED: NITROGLYCERIN 1000MCG/10ML SYRINGE INTRACORON ONE (13:45)
[2019-12-30] MEDS ORDERED: ZOLPIDEM 5 MG TAB PO PRN (13:57)
[2019-12-30] MEDS ORDERED: RX INFO: IV CONTRAST WAS GIVEN 1 EACH MISC MISCELLANE PRN (13:57)
[2019-12-30] MEDS ORDERED: ATROPINE SULFATE 0.1 MG/ML 10ML SYRINGE IV PRN (13:57)
[2019-12-30] MEDS ORDERED: hydrALAZINE HCL 20 MG/ML 1 ML VIAL IVP PRN (15:45)
[2019-12-30] MEDS ORDERED: ONDANSETRON 4 MG/2 ML VIAL IVP PRN (15:45)
--- NOTE | 2019-12-30 16:02 | P.PN ---
Subjective Progress Note Date: 12/30/19 HISTORY OF PRESENT ILLNESS This is a 79-year-old female patient of Dr. Ge and Dr. Beauchamp with past medical history of coronary artery disease with recent stent to the cir cumflex artery in April 2019 with intermediate disease of the mid LAD and normal LV systolic function, hypertension, dyslipidemia and intermediate bilateral carotid artery disease. NIVIA in 2018 revealing normal LV systolic function, thickened mitral valve leaflets with moderate MR and thickened tri cuspid leaflets with moderate TR. Patient states that she was carrying groceries yesterday and developed chest pain that went on a band across the front of her chest around on the right side and up into the right side of her neck. She states she sat down and her breathing was still labored but the pain went away. She did not take any nitroglycerin. Patient was brought in the hospital by her . EKG was sinus rhythm without any acute ST changes. Chest x-ray showed no acute cardiopulmonary process. CBC unremarkable, d-dimer 0.43, sodium 139, potassium 4.7, creatinine 0.77, magnesium 2.1, troponins negative 3, NT proBNP 221, LDL 39, HDL 59 and TSH 1.52. The patient relates that she has been under a lot of stress and her recently had a fall with no fracture. Patient was placed on the observation unit and cardiology consult was obtained. Patient is having Lexiscan stress test and echocardiogram. Patient does not have any active chest pain at the time of evaluation. 12/29: Patient denies any complaints of chest pain, shortness of breath, lightheadedness or dizziness. She is scheduled for cardiac cath today. VS have been stable. Anticipate discharge home tomorrow if PCI is required. REVIEW OF SYSTEMS Constitutional: No fever, no chills, no night sweats. No weight change. No weakness, fatigue or lethargy. EENT: No headache. No blurred vision or double vision, no loss of vision. No dizziness. Lungs: No shortness of breath, cough, no sputum production. No wheezing. Cardiovascular: No chest pain, no lower extremity edema. No palpitations. No paroxysmal nocturnal dyspnea. No orthopnea. No lightheadedness or dizziness. No syncopal episodes. Abdominal: No abdominal pain. No nausea, vomiting. No diarrhea. No constipation. No bloody or tarry stools.. No loss of appetite. Genitourinary: No dysuria, increased frequency, urgency. No urinary retention. Musculoskeletal: No myalgias. No muscle weakness, no gait dysfunction, no frequent falls. No back pain. No neck pain. Integumentary: No wounds, no lesions. No rash or pruritus. No unusual bruising. No change in hair or nails. Neurologic: No aphasia. No facial droop. No change in mentation. No head injury. No headache. No paralysis. No paresthesia. Psychiatric: No depression. No anxiety. No mood swings. Endocrine: No abnormal blood sugars. No weight change. No excessive sweating or thirst. No cold intolerance. PHYSICAL EXAMINATION Gen: This is this is a 79-year-old female, resting in bed and appears to be comfortable and in no acute distress. HEENT: Head is atraumatic, normocephalic. Pupils equal, round. Sclerae is anicteric. NECK: Supple. No JVD. No lymphadenopathy. No thyromegaly. LUNGS: Clear to auscultation. No wheezes or rhonchi. No intercostal retractions. HEART: Regular rate and rhythm. Systolic ejection murmur. ABDOMEN: Soft. Bowel sounds are present. No masses. No tenderness. EXTREMITIES: No pedal edema. No calf tenderness. Dorsalis pedis +2 bilaterally. NEUROLOGICAL: Patient is awake, alert and oriented x3. Cranial nerves 2 through 12 are grossly intact. ASSESSMENT AND PLAN 1. Chest pain, acute coronary syndrome ruled out. Discussed possibly related t o stress. Discussed this with the patient and she does not wish to start any type of medication at this time but will be readdressed in the office. Cardiac catheterization today with Dr. Beauchamp. 2. History of coronary artery disease with stenting of circumflex artery in April with Dr. Beauchamp. 3. Hypertension. 4. Hyperlipidemia. 5. History of carotid artery disease. 6. Family history of colon cancer, patient's colonoscopy is performed every 3 years, up to date. 7. DVT prophylaxis. Early ambulation. 8. GI prophylaxis. Pepcid. Discharge plan: Home on Thursday. Impression and plan of care have been directed as dictated by the signing physician. Dolores Peters nurse practitioner acting as scribe for signing physician. Objective - Vital Signs Vital signs: Vital Signs Temp 97.8 F 12/30/19 07:35 Pulse 64 12/30/19 06:36 Resp 16 12/30/19 07:35 BP 162/80 12/30/19 07:35 Pulse Ox 98 12/30/19 07:35 Intake & Output 12/29/19 12/30/19 12/30/19 18:59 06:59 18:59 Intake Total 150 Balance 150 Weight 61.69 kg Intake: Oral 150 Other: Voiding Method Toilet Toilet # Voids 2 1 - Labs CBC & Chem 7: 12/29/19 07:01 12/29/19 07:01 Labs: Abnormal Lab Results - Last 24 Hours (Table) 12/30/19 Range/Units 06:48 POC Glucose (mg/dL) 102 H (75-99) mg/dL
--- NOTE | 2019-12-30 18:21 | CC ---
CARDIAC CATHETERIZATION REPORT DATE OF PROCEDURE: ____ PERFORMING PHYSICIAN: Rolando Beauchamp M.D. PROCEDURE PERFORMED: 1. Selective right and left coronary angiogram. 2. Left heart catheterization. 3. Successful stenting of the proximal left circumflex using a 3.25 x 15 mm Xience drug-eluting stent, with excellent angiographic results. INDICATION: This is a very pleasant 79-year-old female patient with coronary artery disease and prior stenting of the left circumflex who presented to the hospital with chest discomfort. She underwent a myocardial perfusion imaging stress test and that revealed inferolateral ischemia. Because of that, heart catheterization was advised. APPROACH: Right common femoral artery. COMPLICATIONS: None. LEVEL OF SEDATION: Moderate, with sedation length of 27 minutes. PROCEDURE DESCRIPTION: After obtaining informed consent, the patient was brought to the cardiac laborer mine. The right common femoral artery was cannulated using micropuncture technique. The micropuncture wire passed easily. Then I placed a 6-[place] sheath. Selective right and left coronary angiogram was performed using JR4 and JL4 catheter. Left heart catheterization was performed using a 6-[place] pigtail catheter. After that I did intervene on the LCX. Please see separate paragraph for that. SELECTIVE CORONARY ANGIOGRAM: 1. The RCA is a large-caliber vessel. It is a dominant vessel with mild disease in the mid portion. Distally it bifurcates into PDA and PLV branches. Both appeared to be angiographically normal. 2. The left main is angiographically normal. It bifurcates into LCX and LAD. 3. The LCX is a large-caliber vessel. It is a nondominant vessel. The proximal circumflex has a tight lesion proximal to prior stent and the lesion appeared to be in the range of 70%. The mid and distal circumflex appeared to have mild disease only. 4. The LAD is a large-caliber vessel. The LAD is diffusely diseased up to about 60% in the proximal portion, and a long tubular lesion in the mid portion appeared to be in the range of 70%. The LAD gives rise to 3 diagonal branches; they all appeared to have mild diffuse disease. 5. HEMODYNAMICS: The LVEDP was about 10 to 12 mmHg without significant gradient across the aortic valve. PCI OF THE LCX: Anticoagulation was achieved with Angiomax. Subsequently I did engage the left main using JL3.5 guide. I did wire the left circumflex using a run-through wire. Direct stenting was performed using 3.25 x 15 mm Xience ILENE where the stent was positioned under fluoroscopic guidance and deployed under 12 atmospheres for 20 seconds. The following angiogram showed excellent angiographic results. CONCLUSION: 1. Patent stent in the mid left circumflex. 2. Severe disease involving the proximal left circumflex. I did successful stenting of the proximal left circumflex. 3. Intermediate to severe disease that appeared to be of a diffuse nature involving the left anterior descending artery. POST-PROCEDURE MANAGEMENT: 1. Consider medical treatment for the LAD. 2. Dual anti-platelet therapy. 3. Follow up with the patient. MMODL / IJN: [id number] /
--- NOTE | 2019-12-30 19:18 | ECHOF ---
Referral Reason:cp MEASUREMENTS -------- HEIGHT: 162.6 cm WEIGHT: 61.7 kg BP: IVSd: 1.1 cm (0.6 - 1.1) LVIDd: 4.7 cm (3.9 - 5.3) LVPWd: 1.2 cm (0.6 - 1.1) IVSs: 1.2 cm LVIDs: 4.2 cm LVPWs: 1.2 cm LA Diam: 4.3 cm (2.7 - 3.8) LAESV Index (A-L): 30.70 ml/m Ao Diam: 2.8 cm (2.0 - 3.7) AV Cusp: 1.4 cm (1.5 - 2.6) LA Diam: 3.8 cm (2.7 - 3.8) MV EXCURSION: 12.842 mm (> 18.000) MV EF SLOPE: 42 mm/s (70 - 150) EPSS: 0.2 cm MV E Roger: 0.41 m/s MV DecT: 176 ms MV A Roger: 0.50 m/s MV E/A Ratio: 0.82 AR PHT: 934 ms RAP: 5.00 mmHg RVSP: 32.43 mmHg FINDINGS -------- Sinus rhythm. This was a technically good study. LV size, wall thickness and systolic function are normal, with an EF greater than 55%. The left albino tricular size is normal. The diastolic filling pattern is normal for the age of the patient 10.94. The right ventricle is normal in size. The left atrium is mildly dilated. LA is midly dilated 29-33ml/m2. The right atrial size is normal. There is mild aortic regurgitation. Mild mitral annular calcification present. Mild mitral regurgitation is present. Mild tricuspid regurgitation present. Right ventricular systolic pressure is normal at < 35 mmHg. There is no pulmonic regurgitation present. The aortic root size is normal. There is no pericardial effusion. CONCLUSIONS -------- 1. LV size, wall thickness and systolic function are normal, with an EF greater than 55%. 2. The diastolic filling pattern is normal for the age of the patient 10.94 3. The right ventricle is normal in size. 4. The left atrium is mildly dilated. 5. LA is midly dilated 29-33ml/m2. 6. The right atrial size is normal. 7. There is mild aortic regurgitation. 8. Mild mitral annular calcification present. 9. Mild mitral regurgitation is present. 10. Mild tricuspid regurgitation present. 11. There is no pericardial effusion. TIN FLOPPER: Mary Parker RDCS
[2019-12-30 20:13] VITALS: RESP 18
[2019-12-30] MEDS: ASPIRIN 81 MG PO SCH (20:14)
[2019-12-30] MEDS: PANTOPRAZOLE 40 MG TABLET PO SCH (20:14)
[2019-12-30] MEDS: traZODone HCL 50 MG TAB PO SCH (20:14)
[2019-12-30] MEDS: MELATONIN 5 MG TABLET PO SCH (20:14)
[2019-12-30] MEDS: MONTELUKAST 10 MG TAB PO SCH (20:14)
[2019-12-30] MEDS: ATORVASTATIN 80 MG TAB PO SCH (20:14)
[2019-12-31] MEDS: LEVOTHYROXINE 75 MCG TAB PO SCH (06:24)
[2019-12-31 07:41] VITALS: BP 145/70; PULSE 67; TEMP 97.7
[2019-12-31 08:18] LABS: Basophils % (A) 1 %; Eosinophils # (A) 0.2 k/uL (0-0.7); Eosinophils % (A) 2 %; HGB 12.2 gm/dL (11.4-16.0); Lymphocytes # (A) 1.7 k/uL (1.0-4.8); Lymphocytes % (A) 20 %; MCH 28.8 pg (25.0-35.0); MCHC 31.2 g/dL (31.0-37.0); MCV 92.1 fL (80.0-100.0); Mean Platelet Volume 7.9; Monocytes # (A) 0.6 k/uL (0-1.0); Monocytes % (A) 7 %; Neutrophils # (A) 5.7 k/uL (1.3-7.7); Neutrophils % (A) 68 %; Platelet Count 231 k/uL (150-450); RBC 4.23 m/uL (3.80-5.40); RDW 13.1 % (11.5-15.5); WBC 8.4 k/uL (3.8-10.6)
[2019-12-31 08:27] LABS: African American GFR (CKD) >90 (>60 ml/min/1.73 sqM); Anion Gap 4 mmol/L; Blood Urea Nitrogen 14 mg/dL (7-17); Calcium 8.9 mg/dL (8.4-10.2); Carbon Dioxide 22 mmol/L (22-30); Chloride 113 mmol/L (98-107); Glucose 98 mg/dL (74-99); Non-African American GFR(CKD) 85 (>60 ml/min/1.73 sqM); Sodium 139 mmol/L (137-145)
[2019-12-31] MEDS: CLOPIDOGREL 75 MG TAB PO SCH (08:46)
[2019-12-31] MEDS: hydrALAZINE HCL 50 MG TAB PO SCH (08:46)
[2019-12-31] MEDS: atenoloL 25 MG TAB PO SCH (08:46)
[2019-12-31] MEDS: LORATADINE 10 MG TAB PO SCH (08:46)
[2019-12-31] MEDS: VIT A,C & E-LUTEIN-MINERALS 1 EACH TAB PO SCH (08:46)
[2019-12-31] MEDS: VITAMIN E (DL,TOCOPHERYL ACET) 400 UNIT CAP PO SCH (08:46)
[2019-12-31] MEDS: FAMOTIDINE 20 MG TAB PO SCH (08:46)
[2019-12-31] MEDS: ASCORBIC ACID 500 MG TAB PO SCH (08:46)
[2019-12-31] MEDS: ZINC SULFATE 220 MG CAP PO SCH (08:46)
[2019-12-31] MEDS: CHOLECALCIFEROL 1,000 UNIT TAB PO SCH (08:46)
[2019-12-31] MEDS: LOSARTAN 50 MG TAB PO SCH (08:46)
[2019-12-31] MEDS: FLUTICASONE 50MCG/SPRAY NASAL 16GM EA NOSTRIL SCH (08:47)
[2019-12-31] MEDS: MAG HYDROX/AL HYDROX/SIMETH 30 ML CUP PO SCH (08:52)
--- NOTE | 2019-12-31 10:39 | P.PN ---
Subjective Progress Note Date: 12/31/19 CHIEF COMPLAINT: Chest pain HISTORY OF PRESENT ILLNESS: 79-year-old female who underwent cardiac catheterization yesterday with stent placement to the circumflex. Patient examined at the bedside. She denies chest pain. Denies shortness of breath. Vital signs are stable. She is hoping to be discharged home today. PHYSICAL EXAM: VITAL SIGNS: Reviewed. GENERAL: Well-developed in no acute distress. NECK: Supple. No JVD or thyromegaly LUNGS: Respirations even and unlabored. Lungs essentially clear to auscultation bilaterally. HEART: Regular rate and rhythm. S1 and S2 heard. EXTREMITIES: Normal range of motion. No clubbing or cyanosis. Peripheral pulses intact. No lower extremity edema. Right groin cath site with pulse present. ASSESSMENT: Chest pain, status post cardiac cath with PCI of the circumflex Coronary artery disease status post PCI of the circumflex artery 04/2019 maintained on dual antiplatelet therapy Hypertension Dyslipidemia Peripheral vascular disease PLAN: Continue current cardiac medications Patient is stable for discharge from a cardiac standpoint. She is to follow up outpatient with Dr. Beauchamp Nurse practitioner note has been reviewed by physician. Signing provider agrees with the documented findings, assessment, and plan of care. Objective - Vital Signs Vital signs: Vital Signs Temp 97.7 F 12/31/19 07:40 Pulse 67 12/31/19 07:40 Resp 18 12/31/19 07:40 BP 145/70 12/31/19 07:40 Pulse Ox 97 12/31/19 07:40 Intake & Output 12/30/19 12/31/19 12/31/19 18:59 06:59 18:59 Intake Total 315 Balance 315 Intake: IV 115 Oral 200 Other: Voiding Method Toilet Toilet Toilet # Voids 2 1 - Labs CBC & Chem 7: 12/31/19 08:01 12/31/19 08:01 Labs: Abnormal Lab Results - Last 24 Hours (Table) 12/31/19 Range/Units 08:01 Chloride 113 H (98-107) mmol/L
--- NOTE | 2019-12-31 11:11 | P.DS ---
Providers Date of admission: 12/29/19 14:35 Attending physician: Júnior Jade Consults: 12/28/19 19:25 Consult Physician Urgent Consulting Provider: Rolando Beauchamp Consult Reason/Comments: cp Do you want consulting provider notified?: Yes 12/30/19 13:57 Consult Physician Routine Consulting Provider: [facility] Consult Reason/Comments: Post Interventional patient Do you want consulting provider notified?: Already Contacted Primary care physician: Saharakelsea Ge [facility] Course: This is a 79-year-old female patient of Dr. Ge and Dr. Beauchamp with past medical history of coronary artery disease with recent stent to the circumflex artery in April 2019 with intermediate disease of the mid LAD and normal LV systolic function, hypertension, dyslipidemia and intermediate bilateral carotid artery disease. NIVIA in 2018 revealing normal LV systolic function, thickened mitral valve leaflets with moderate MR and thickened tricuspid leaflets with moderate TR. Patient states that she was carrying groceries yesterday and developed chest pain that went on a band across the front of her chest around on the right side and up into the right side of her neck. She states she sat down and her breathing was still labored but the pain went away. She did not take any nitroglycerin. Patient was brought in the hospital by her . EKG was sinus rhythm without any acute ST changes. Chest x-ray showed no acute cardiopulmonary process. CBC unremarkable, d-dimer 0.43, sodium 139, potassium 4.7, creatinine 0.77, magnesium 2.1, troponins negative 3, NT proBNP 221, LDL 39, HDL 59 and TSH 1.52. The patient relates that she has been under a lot of stress and her recently had a fall with no fracture. Patient was placed on the observation unit and cardiology consult was obtained. Patient is having Lexiscan stress test and echocardiogram. Patient does not have any active chest pain at the time of evaluation. 12/29: Patient denies any complaints of chest pain, shortness of breath, lightheadedness or dizziness. She is scheduled for cardiac cath today. VS have been stable. Anticipate discharge home tomorrow if PCI is required. 12/30: Patient is resting comfortable in bed without any complaints of chest pain shortness of breath lightheadedness or dizziness. Patient underwent a cardiac cath yesterday with PCI to the left circumflex. Right groin cath site is soft nontender with palpable pulse. Discharge diagnosis: 1. Chest pain, acute coronary syndrome ruled out. 2. History of coronary artery disease with stenting of circumflex artery in April with Dr. Beauchamp. 3. Hypertension. 4. Hyperlipidemia. 5. History of carotid artery disease. 6. Family history of colon cancer Discharge disposition: Home with self-care Impression and plan of care have been directed as dictated by the signing physician. Diane Herrera nurse practitioner acting as scribe for signing physician. Plan - Discharge Summary Discharge Rx Participant: Yes New Discharge Prescriptions: New Nitroglycerin Sl Tabs [Nitrostat] 0.4 mg SUBLINGUAL Q5M PRN #25 tab PRN Reason: Chest Pain Loratadine [Claritin] 10 mg PO DAILY tab Continue Levothyroxine Sodium [Synthroid] 75 mcg PO MOTUWETHFRSA Irbesartan 300 mg PO DAILY Levothyroxine Sodium [Synthroid] 112.5 mcg PO BOUDREAUX Vitamin E (Dl,Tocopheryl Acet) [Vitamin E] 400 unit PO DAILY Turmeric Root Extract [Turmeric] 1,000 mg PO BID Lutein 40 mg PO DAILY Cholecalciferol (Vitamin D3) [Vitamin D3] 2,000 unit PO DAILY Ascorbic Acid [Vitamin C with Julissa Hips] 500 mg PO DAILY hydrALAZINE HCL [Apresoline] 50 mg PO BID Lansoprazole [Prevacid] 15 mg PO HS atenoloL [Tenormin] 25 mg PO BID Zinc Gluconate [Zinc] 50 mg PO DAILY Montelukast [Singulair] 10 mg PO HS Melatonin 10 mg PO HS Diclofenac Sodium [Voltaren Gel] 1 applic TOPICAL DAILY PRN PRN Reason: Pain Glucosam/Niko-Msm1/C/Georges/Bosw [Sckpgpmixzh-Jibpmrkmudg-VJF Tb] 1 tab PO BID Propylene Glycol/Peg 400/Pf [Systane 0.3-0.4% Eye Drop] 1 drop BOTH EYES DAILY PRN PRN Reason: dry eyes Fluticasone Nasal [place] [Flonase Nasal [place]] 1 spray EA NOSTRIL DAILY Aspirin [Adult Low Dose Aspirin EC] 81 mg PO HS Potassium 99 mg PO DAILY Atorvastatin [Lipitor] 80 mg PO HS #90 tab Vitamin A 2400mcg 2,400 mcg PO DAILY Biotin 10,000 mcg PO DAILY Fish Oil/Dha/Epa [Fish Oil 1,200 mg Fish Oil] 1 cap PO DAILY traZODone HCL 50 mg PO HS Albuterol Sulfate [Proair Respiclick] 2 puff INHALATION RT-Q4H PRN PRN Reason: Shortness Of Breath Clopidogrel Bisulfate [Plavix] 75 mg PO DAILY #30 tab Discharge Medication List Irbesartan 300 mg PO DAILY 11/24/13 [History] Levothyroxine Sodium [Synthroid] 75 mcg PO MOTUWETHFRSA 11/24/13 [History] Ascorbic Acid [Vitamin C with Julissa Hips] 500 mg PO DAILY 01/20/19 [History] Cholecalciferol (Vitamin D3) [Vitamin D3] 2,000 unit PO DAILY 01/20/19 [History] Diclofenac Sodium [Voltaren Gel] 1 applic TOPICAL DAILY PRN 01/20/19 [History] Lansoprazole [Prevacid] 15 mg PO HS 01/20/19 [History] Levothyroxine Sodium [Synthroid] 112.5 mcg PO BOUDREAUX 01/20/19 [History] Lutein 40 mg PO DAILY 01/20/19 [History] Melatonin 10 mg PO HS 01/20/19 [History] Montelukast [Singulair] 10 mg PO HS 01/20/19 [History] Turmeric Root Extract [Turmeric] 1,000 mg PO BID 01/20/19 [History] Vitamin E (Dl,Tocopheryl Acet) [Vitamin E] 400 unit PO DAILY 01/20/19 [History] Zinc Gluconate [Zinc] 50 mg PO DAILY 01/20/19 [History] atenoloL [Tenormin] 25 mg PO BID 01/20/19 [History] hydrALAZINE HCL [Apresoline] 50 mg PO BID 01/20/19 [History] Aspirin [Adult Low Dose Aspirin EC] 81 mg PO HS 02/17/19 [History] Fluticasone Nasal [place] [Flonase Nasal [place]] 1 spray EA NOSTRIL DAILY 02/17/19 [History] Glucosam/Niko-Msm1/C/Georges/Bosw [Xbtxyqcjita-Qfwrrkdpucu-IHM Tb] 1 tab PO BID 02/17/19 [History] Propylene Glycol/Peg 400/Pf [Systane 0.3-0.4% Eye Drop] 1 drop BOTH EYES DAILY PRN 02/17/19 [History] Potassium 99 mg PO DAILY 04/22/19 [History] Atorvastatin [Lipitor] 80 mg PO HS #90 tab 04/27/19 [Rx] Albuterol Sulfate [Proair Respiclick] 2 puff INHALATION RT-Q4H PRN 12/28/19 [History] Biotin 10,000 mcg PO DAILY 12/28/19 [History] Fish Oil/Dha/Epa [Fish Oil 1,200 mg Fish Oil] 1 cap PO DAILY 12/28/19 [History] Vitamin A 2400mcg 2,400 mcg PO DAILY 12/28/19 [History] traZODone HCL 50 mg PO HS 12/28/19 [History] Nitroglycerin Sl Tabs [Nitrostat] 0.4 mg SUBLINGUAL Q5M PRN #25 tab 12/29/19 [Rx] Clopidogrel Bisulfate [Plavix] 75 mg PO DAILY #30 tab 12/31/19 [Rx] Loratadine [Claritin] 10 mg PO DAILY tab 12/31/19 [Rx] Follow up Appointment(s)/Referral(s): Sahara Ge MD [Primary Care Provider] - 1 Week Rolando Beauchamp MD [STAFF PHYSICIAN] - 01/05/20 3:45 pm Patient Instructions/Handouts: *Surgery [facility] - After Heart Catheterization - Hole Digger Operator Instructions, Cardiac Rehabilitation (DC)
[2019-12-31 12:47] VITALS: BMI 23.3
[2020-01-01] MEDS ORDERED: LEVOTHYROXINE 112 MCG TAB PO SCH (06:30)
== END 2019-12-31 13:03 | disposition home or self-care (01) | DRG 247 ==
LOC: EC 17:12 → 3NCARDOBS 19:27 → OBSVTOIN 12-29 14:35
PROVIDERS: ADMIT Internal Medicine Geriatric Medicine; ATTEND Internal Medicine Geriatric Medicine
PROC: 4A023N7 Measurement of Cardiac Sampling and Pressure, Left Heart, Percutaneous Approach (ICD-10-PCS; principal; 2019-12-30 12:30)
PROC: B2111ZZ Fluoroscopy of Multiple Coronary Arteries using Low Osmolar Contrast (ICD-10-PCS; principal; 2019-12-30 12:30)
PROC: 027034Z Dilation of Coronary Artery, One Artery with Drug-eluting Intraluminal Device, Percutaneous Approach (ICD-10-PCS; principal; 2019-12-30 12:30)
DX: I25.10 Atherosclerotic heart disease of native coronary artery without angina pectoris (principal); I10 Essential (primary) hypertension; E78.5 Hyperlipidemia, unspecified; G43.909 Migraine, unspecified, not intractable, without status migrainosus; I73.9 Peripheral vascular disease, unspecified; Z79.02 Long term (current) use of antithrombotics/antiplatelets; Z79.82 Long term (current) use of aspirin; Z79.890 Hormone replacement therapy; Z79.899 Other long term (current) drug therapy; Z88.6 Allergy status to analgesic agent; Z88.4 Allergy status to anesthetic agent; Z88.1 Allergy status to other antibiotic agents; Z91.011 Allergy to milk products; Z88.0 Allergy status to penicillin; Z88.2 Allergy status to sulfonamides; Z91.09 Other allergy status, other than to drugs and biological substances; Z98.890 Other specified postprocedural states; Z80.0 Family history of malignant neoplasm of digestive organs; Z82.5 Family history of asthma and other chronic lower respiratory diseases; Z95.5 Presence of coronary angioplasty implant and graft
CPT/HCPCS: 36415; 71046; 78452; 80048; 80053; 80061; 83735; 83880; 84443; 84484; 85025; 85379; 85610; 85730; 93005; 93017; 93306; 93458; 99285

== ENCOUNTER → 2020-03-01 | Outpatient (CLI) | payer MEDICARE ==
--- NOTE | 2020-03-03 10:55 | CT ---
EXAMINATION TYPE: CT urogram wo/w con DATE OF EXAM: 03/01/2020 COMPARISON: None INDICATION: Hematuria DLP: 1728 mGycm, Automated exposure control for dose reduction was used. CONTRAST: 100 mL of Isovue 300. Study performed without Oral Contrast TECHNIQUE: Axial images were obtained from above the diaphragm to the pubic rami in the axial plane a t 5 mm thick sections. Reconstructed images are reviewed on the computer in the coronal plane. Three -D reconstructed images are performed through the renal collecting system a separate computer by the technologist. FINDINGS: Limited CT sections are obtained the lung bases. The lung bases are clear. Small hiatal hernia is p resent. CT ABDOMEN: Liver: There is a 1.1 cm hepatic cyst. Spleen: Normal Pancreas: Normal Adrenal glands: The adrenal glands are normal. Gallbladder: Normal Kidneys: No masses are evident. No hydronephrosis is present. Large peripelvic cysts are present bi laterally. Renal calyces infundibula and renal pelves are normal. Ureters following normal caliber c ourse and contour to the urinary bladder. Segment of the mid left ureter is not visualized. No dilata tion is evident. On delayed images of the mid left ureteral segment is better visualized. Urinary shorty dder appears unremarkable. There is a 0.3 cm calcification which is nonobstructing at the inferior pole of the left kidney. There is a 0.6 similar calcification in the proximal left ureter. Hydronephrosis is not evident. Aorta: Vascular calcification is within the aorta. Inferior vena cava: Normal. CT PELVIS: Loops of bowel within the abdomen and pelvis are normal. The study is without oral contrast limit ing bowel evaluation. Appendix: Not visualized. No suspicious dilated tubular structures or inflammatory changes are eviden t. Urinary bladder: Normal. Genitourinary structures: Uterus is unremarkable. Adnexal regions are clear. Osseous structures: There may be a bone island within the left sacrum. Bone island may be within the left L5 pedicle. Sclerotic metastasis is not excluded. IMPRESSIONS: 1. Nonobstructing proximal right ureteral stone measuring 0.6 cm. 2. Nonobstructing inferior pole left renal stone. 3. Peripelvic cysts present bilaterally. 4. Bone islands are suspected within the sacrum and L5 pedicle. Sclerotic metastasis is considered le ss likely within the differential.
== END | disposition home or self-care (01) ==
LOC: RADCTMAIN 08:55
PROVIDERS: ATTEND Family Medicine
DX: N20.2 Calculus of kidney with calculus of ureter (principal); N28.1 Cyst of kidney, acquired
CPT/HCPCS: 82565; 84520; 74178; 36415; 74400; Q9967

== ENCOUNTER → 2020-03-22 | Outpatient (CLI) | payer MEDICARE ==
--- NOTE | 2020-03-22 15:26 | US ---
EXAMINATION TYPE: US kidneys/renal and bladder DATE OF EXAM: 03/22/2020 COMPARISON: CT 2019 CLINICAL HISTORY: N20.0 Nephrolithiasis. Right flank pain EXAM MEASUREMENTS: Right Kidney: 9.8 x 4.6 x 4.7 cm Left Kidney: 9.3 x 4.6 x 5.3 cm Right Kidney: 0.5cm echogenic focus inferior pole, hydronephrosis vs. parapelvic cysts seen Left Kidney: 0.4cm echogenic focus inferior pole, hydronephrosis vs. parapelvic cysts seen Bladder: wnl Bilateral Jets seen: right jet not seen, left jet seen IMPRESSION: There are bilateral peripelvic cysts corresponding to the CT examination of 03/01/2020
== END | disposition home or self-care (01) ==
LOC: RADUSWWP 13:57
PROVIDERS: ATTEND Family Medicine
DX: N28.1 Cyst of kidney, acquired (principal)
CPT/HCPCS: 76770

== ENCOUNTER → 2020-04-17 | Outpatient (CLI) | payer MEDICARE ==
--- NOTE | 2020-04-17 17:25 | XR ---
EXAMINATION TYPE: XR lumbar spine 2 or 3V DATE OF EXAM: 04/17/2020 Comparison: Correlation CT urogram 03/01/2020 Clinical History: 79-year-old female with pain, L1 radiculopathy Findings: There is severe degenerative disc disease throughout with loss of disc height and scattered endplate sclerosis and spondylosis. Advanced hypertrophic facet arthropathy throughout. Grade 1 retrolisthesis at L1-L2 and L3-L4. Grade 1 anterolisthesis of L5-S1. Vascular disease. Atherosclerotic calcificatio ns abdominal aorta. Straightening of the normal cervical lordosis. 1 cm sclerotic focus within the le ft sacral ala. Impression: 1. Advanced degenerative disc disease throughout. 2. Hypertrophic facet arthropathy greatest in the mid and lower lumbar spine. Degenerative grade 1 re trolisthesis at L1-L2 and L3-L4. Degenerative grade 1 anterolisthesis at L5-S1. 3. Baastrup's disease. 4. Stable 1 cm sclerotic focus in the left side of the sacrum suggestive of a bone island.
== END | disposition home or self-care (01) ==
LOC: RAD 15:48
PROVIDERS: ATTEND Family Medicine
DX: M43.16 Spondylolisthesis, lumbar region (principal); M43.17 Spondylolisthesis, lumbosacral region; M51.16 Intervertebral disc disorders with radiculopathy, lumbar region; M47.26 Other spondylosis with radiculopathy, lumbar region; M48.26 Kissing spine, lumbar region; G95.89 Other specified diseases of spinal cord
CPT/HCPCS: 72100

== ENCOUNTER → 2020-08-28 | Outpatient (CLI) | payer MEDICARE ==
--- NOTE | 2020-08-29 07:39 | US ---
EXAMINATION TYPE: US kidneys/renal and bladder DATE OF EXAM: 08/28/2020 COMPARISON: 03/22/2020 CLINICAL HISTORY: R31.9 Hematuria, unspecified. Pt states recently experiencing painless hematuria EXAM MEASUREMENTS: Right Kidney: 9.2 x 4.4 x 4.2 cm Left Kidney: 9.3 x 4.1 x 3.9 cm Right Kidney: Multiple Parapelvic cysts, the largest measuring 3.0 x 1.5 x 2.6 centimeters. 7 mm eunice l calculus at the upper to mid pole of the right kidney laterally. Left Kidney: Multiple Parapelvic cysts, the largest measuring 1.6 x 1.8 x 1.8 cm. A 6 mm renal calcul us at the left mid pole. Bladder: wnl Bilateral Jets seen: yes There is no evidence for hydronephrosis at this point in time. The urinary bladder is anechoic. Bila teral ureteral jets are seen. IMPRESSION: 1. Bilateral parapelvic cysts. 2. Bilateral nonobstructive renal calculi are seen.
== END | disposition home or self-care (01) ==
LOC: RADUSWWP 16:03
PROVIDERS: ATTEND Family Medicine
DX: N20.0 Calculus of kidney (principal); N28.1 Cyst of kidney, acquired
CPT/HCPCS: 76770

== ENCOUNTER 2020-10-09 13:31 | Emergency (ER) | payer MEDICARE ==
[2020-10-09 13:48] VITALS: BP 189/72; PULSE 67; RESP 18; TEMP 98.5
[2020-10-09] MEDS ORDERED: KETOROLAC 15 MG/ML 1 ML VIAL IVP STA (14:54)
--- NOTE | 2020-10-09 14:54 | ED ---
General Adult HPI - General Chief complaint: Back Pain/Injury Stated complaint: rt sided pain Time Seen by Provider: 10/09/20 13:45 Source: patient, RN notes reviewed, old records reviewed Mode of arrival: wheelchair Limitations: no limitations - History of Present Illness Initial comments: This is a 80-year-old female who presents emergency Department complaining of right lower back pain that radiates down her right leg. Patient denies any injury however she states earlier this month she did quite a bit of work around the house which she normally does not do an last week she had a gradual which she did let lifting and now the pain this morning is excretion. Patient denies any numbness weakness. Patient denies any perineum numbness. Patient denies any urinary retention or urinary incontinence. Patient states she is post have an MRI on Thursday but the pain is too bad so her primary medical care doctor sent her to the emergency department. - Related Data Home Medications Medication Instructions Recorded Confirmed Irbesartan 300 mg PO DAILY 11/24/13 12/28/19 Levothyroxine Sodium [Synthroid] 75 mcg PO MOTUWETHFRSA 11/24/13 12/28/19 Ascorbic Acid [Vitamin C with Julissa 500 mg PO DAILY 01/20/19 12/28/19 Hips] Cholecalciferol (Vitamin D3) 2,000 unit PO DAILY 01/20/19 12/28/19 [Vitamin D3] Diclofenac Sodium [Voltaren Gel] 1 applic TOPICAL DAILY PRN 01/20/19 12/28/19 Lansoprazole [Prevacid] 15 mg PO HS 01/20/19 12/28/19 Levothyroxine Sodium [Synthroid] 112.5 mcg PO BOUDREAUX 01/20/19 12/28/19 Lutein 40 mg PO DAILY 01/20/19 12/28/19 Melatonin 10 mg PO HS 01/20/19 12/28/19 Montelukast [Singulair] 10 mg PO HS 01/20/19 12/28/19 Turmeric Root Extract [Turmeric] 1,000 mg PO BID 01/20/19 12/28/19 Vitamin E (Dl,Tocopheryl Acet) 400 unit PO DAILY 01/20/19 12/28/19 [Vitamin E] Zinc Gluconate [Zinc] 50 mg PO DAILY 01/20/19 12/28/19 atenoloL [Tenormin] 25 mg PO BID 01/20/19 12/28/19 hydrALAZINE HCL [Apresoline] 50 mg PO BID 01/20/19 12/28/19 Aspirin [Adult Low Dose Aspirin EC] 81 mg PO HS 02/17/19 12/28/19 Fluticasone Nasal [place] [Flonase 1 spray EA NOSTRIL DAILY 02/17/19 12/28/19 Nasal [place]] Glucosam/Niko-Msm1/C/Georges/Bosw 1 tab PO BID 02/17/19 12/28/19 [Xazjuaoopnj-Hrowfhluwkb-RNA Tb] Propylene Glycol/Peg 400/Pf 1 drop BOTH EYES DAILY PRN 02/17/19 12/28/19 [Systane 0.3-0.4% Eye Drop] Potassium 99 mg PO DAILY 04/22/19 12/28/19 Albuterol Sulfate [Proair 2 puff INHALATION RT-Q4H PRN 12/28/19 12/28/19 Respiclick] Biotin 10,000 mcg PO DAILY 12/28/19 12/28/19 Fish Oil/Dha/Epa [Fish Oil 1,200 1 cap PO DAILY 12/28/19 12/28/19 mg Fish Oil] Vitamin A 2400mcg 2,400 mcg PO DAILY 12/28/19 12/28/19 traZODone HCL 50 mg PO HS 12/28/19 12/28/19 Previous Rx's Medication Instructions Recorded Atorvastatin [Lipitor] 80 mg PO HS #90 tab 04/27/19 Nitroglycerin Sl Tabs [Nitrostat] 0.4 mg SUBLINGUAL Q5M PRN #25 tab 12/29/19 Clopidogrel Bisulfate [Plavix] 75 mg PO DAILY #30 tab 12/31/19 Loratadine [Claritin] 10 mg PO DAILY tab 12/31/19 predniSONE [Deltasone] 40 mg PO DAILY #8 tab 10/09/20 Allergies Allergy/AdvReac Type Severity Reaction Status Date / Time Beef Containing Products Allergy Unknown Verified 10/09/20 13:47 Milk Containing Products Allergy Unknown Verified 10/09/20 13:47 [Dairy] mold Allergy Dyspnea Verified 10/09/20 13:47 Penicillins Allergy Unknown Verified 10/09/20 13:47 Childhood pollen extracts Allergy Dyspnea Verified 10/09/20 13:47 procaine [From Novocain] Allergy Unknown Verified 10/09/20 13:47 Sulfa (Sulfonamide Allergy Unknown Verified 10/09/20 13:47 Antibiotics) tree and shrub pollen Allergy Dyspnea Verified 10/09/20 13:47 aspirin AdvReac Abdominal Verified 10/09/20 13:47 Pain celecoxib [From Celebrex] AdvReac Dyspnea Verified 10/09/20 13:47 Review of Systems ROS Statement: Those systems with pertinent positive or pertinent negative responses have been documented in the HPI. ROS Other: All systems not noted in ROS Statement are negative. Past Medical History Past Medical History: Hyperlipidemia, Hypertension Additional Past Medical History / Comment(s): "leaky heart valve", palpitations, shortness of breath when climbing stairs, hx migraine History of Any Multi-Drug Resistant Organisms: None Reported Past Surgical History: Orthopedic Surgery Additional Past Surgical History / Comment(s): bilateral knee Past Anesthesia/Blood Transfusion Reactions: No Reported Reaction Past Psychological History: No Psychological Hx Reported Smoking Status: Never smoker Past Alcohol Use History: Occasional Past Drug Use History: None Reported - Past Family History Father Family Medical History: Cancer Additional Family Medical History / Comment(s): colon cancer General Exam - General Exam Comments Initial Comments: GENERAL: Patient is well-developed and well-nourished. Patient is nontoxic and well- hydrated and is in moderate distress. ENT: Neck is soft and supple. No significant lymphadenopathy is noted. Oropharynx is clear. Moist mucous membranes. Neck has full range of motion without eliciting any pain. EYES: The sclera were anicteric and conjunctiva were pink and moist. Extraocular movements were intact and pupils were equal round and reactive to light. Eyelids were unremarkable. PULMONARY: Unlabored respirations. Good breath sounds bilaterally. No audible rales rhonchi or wheezing was noted. CARDIOVASCULAR: There is a regular rate and rhythm without any murmurs gallops or rubs. ABDOMEN: Soft and nontender with normal bowel sounds. SKIN: Skin is clear with no lesions or rashes and otherwise unremarkable. NEUROLOGIC: Patient is alert and oriented x3. Cranial nerves II through XII are grossly intact. Motor and sensory are also intact. Normal speech, volume and content. Symmetrical smile. Straight leg test is positive at 60 on the right leg MUSCULOSKELETAL: Normal extremities with adequate strength and full range of motion. LYMPHATICS: No significant lymphadenopathy is noted PSYCHIATRIC: Normal psychiatric evaluation. Limitations: no limitations Course Vital Signs 10/09/20 13:44 Temperature 98.5 F Pulse Rate 67 Respiratory 18 Rate Blood Pressure 189/72 O2 Sat by Pulse 97 Oximetry Medical Decision Making - Medical Decision Making X-ray showed no acute abnormality just chronic changes. I went back and reevaluated the patient she was feeling better but still had quite a bit of pain so I gave her another dose of Dilaudid. I offered the patient admission she refused and wanted to follow-up as an outpatient and get her MRI on Thursday. Disposition Clinical Impression: Sciatica Disposition: HOME SELF-CARE Condition: Good Instructions (If sedation given, give patient instructions): Sciatica (ED) Prescriptions: predniSONE [Deltasone] 40 mg PO DAILY #8 tab Is patient prescribed a controlled substance at d/c from ED?: No Referrals: Sahara Ge MD [Primary Care Provider] - 1-2 days Time of Disposition: 16:44
[2020-10-09] MEDS ORDERED: methylPREDNISolone SOD SUCCI 125 MG/2 ML VIAL IV STA (14:55)
[2020-10-09] MEDS ORDERED: HYDROmorphone 0.5 MG/0.5 ML SYRINGE IVP STA ×2 (14:55→16:44)
[2020-10-09] MEDS ORDERED: ONDANSETRON 4 MG/2 ML VIAL IVP STA (14:55)
--- NOTE | 2020-10-09 16:05 | XR ---
EXAMINATION TYPE: XR lumbosacral spine min 4V DATE OF EXAM: 10/09/2020 CLINICAL HISTORY: pain COMPARISON: NONE TECHNIQUE: Frontal, lateral, and oblique images of the lumbar spine are obtained. FINDINGS: Severe multilevel degenerative disc disease. Retrolisthesis L3 on L4 of 4 mm. Anterolisthes is L5 on S1 of 7 mm. Endplate sclerosis and spondylosis seen throughout. Severe facet joint arthropat hy probable bilateral foraminal encroachment at L4-5 and L5-S1. No evidence for compression fracture. Renal calculi difficult to exclude. IMPRESSION: No acute fracture or dislocation is seen in the lumbar spine.ICD 10 NO FRACTURE, INITIAL EVALUATION
[2020-10-09] MEDS ORDERED: ACET/COD 300 MG/30 MG STARTER PACK 6 TAB BTL PO STA (16:45)
== END 2020-10-09 17:18 | disposition home or self-care (01) ==
LOC: EC 13:31
DX: M54.30 Sciatica, unspecified side (principal); E78.5 Hyperlipidemia, unspecified; I10 Essential (primary) hypertension
CPT/HCPCS: 72110; 99283; 96374; 96375 ×3; 96376; J2930; J2405; J1885; J1170

== ENCOUNTER → 2020-10-12 | Outpatient (CLI) | payer MEDICARE ==
--- NOTE | 2020-10-13 04:37 | MR ---
EXAMINATION TYPE: MR lumbar spine wo con DATE OF EXAM: 10/12/2020 COMPARISON: None HISTORY: LBP, RLE radiculopathy. Multiplanar multiecho imaging of the lumbar spine without contrast. Vertebra have fairly normal alignment. There is 7 mm anterior subluxation of L5 in relation S1. There is probably bilateral L5 spondylolysis. There is posterior disc herniations at L2-3 L3-4 L4-5 into t he spinal canal. Disc herniation is larger at L2-3. There is also some disc herniation at L1-2. There is resultant spinal stenosis at L2-3. I see no focal bone destruction. There are sacral cyst at S2 l evel. There is no paraspinal mass. There is moderate multilevel lumbar disc space narrowing from L3 to S1. IMPRESSION: Multilevel posterior lumbar disc herniations. There is a relative spinal stenosis at L2-3. There is a lso moderate disc herniation at L4-5 but larger spinal canal and no significant spinal stenosis. Mult ilevel moderate degenerative disc space narrowing. No compression fracture.
== END | disposition home or self-care (01) ==
LOC: RADMRIMAIN 19:59
PROVIDERS: ATTEND Family Medicine
DX: M48.061 Spinal stenosis, lumbar region without neurogenic claudication (principal); M51.16 Intervertebral disc disorders with radiculopathy, lumbar region
CPT/HCPCS: 72148

== ENCOUNTER → 2021-01-22 | Outpatient (CLI) | payer MEDICARE ==
--- NOTE | 2021-01-22 14:57 | XR ---
Right shoulder HISTORY: Impingement, arthritis 3 views of the right shoulder There is marginal spurring, joint space loss, subchondral sclerosis and remodeling of the humeral hea d. There is associated soft tissue calcification which is somewhat cloudlike the level of the joint a nd about the humeral head. Arthropathy is present at the acromioclavicular joint. Right lung apex as visualized is normal. IMPRESSION: Osteoarthritis, consider crystal deposition arthropathy.
== END | disposition home or self-care (01) ==
LOC: RADXRMAIN 14:36
PROVIDERS: ATTEND Family Medicine
DX: M19.011 Primary osteoarthritis, right shoulder (principal)

== ENCOUNTER 2023-01-18 22:12 | Inpatient (IN) | payer MEDICARE ==
[2023-01-18] MEDS ORDERED: LORazepam 2 MG/ML INJ IV STA (22:36)
[2023-01-18] MEDS ORDERED: HYDROmorphone 1 MG/ML 1 ML SYRINGE IVP STA (22:36)
[2023-01-18] MEDS ORDERED: KETOROLAC 15 MG/ML 1 ML VIAL IVP STA (22:36)
[2023-01-18] MEDS ORDERED: SODIUM CHLORIDE 0.9% 500 ML 500 ML IV STA (22:37)
--- NOTE | 2023-01-18 22:37 | ED ---
Fall HPI - General Chief Complaint: Fall Stated Complaint: HIP PAIN Time Seen by Provider: 01/18/23 22:29 Source: patient, RN notes reviewed, old records reviewed Mode of arrival: EMS Limitations: no limitations - History of Present Illness Initial Comments: This is a 82-year-old female to the emergency department today for evaluation. Patient presents today for evaluation of severe hip pain back pain. Pain wrapping around to her back and abdomen. Patient has severe pain anteriorly and into her back and persistent here in the ER. Patient fall occurred 3 days ago. Patient was able to walk yesterday but today he is not able to No to ambulate. 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[employer] Fall Witnessed: no Place Fall Occurred: home Loss of Consciousness: none Prolonged Down Time?: no Symptoms Prior to Fall: none Severity: moderate Severity scale (1-10): 4 Context: tripped/slipped Associated Symptoms: denies - Related Data Home Medications Medication Instructions Recorded Confirmed Irbesartan 300 mg PO DAILY 11/24/13 01/19/23 Levothyroxine Sodium [Synthroid] 75 mcg PO DAILY 11/24/13 01/19/23 Cholecalciferol (Vitamin D3) 50 mcg PO DAILY 01/20/19 01/19/23 [Vitamin D3] Lansoprazole [Prevacid] 15 mg PO DAILY 01/20/19 01/19/23 Melatonin 10 mg PO HS 01/20/19 01/19/23 Montelukast [Singulair] 10 mg PO HS 01/20/19 01/19/23 Turmeric Root Extract [Turmeric] 1,000 mg PO BID 01/20/19 01/19/23 Vitamin E (Dl,Tocopheryl Acet) 400 unit PO DAILY 01/20/19 01/19/23 [Vitamin E (400 Iu = 180 mg)] atenoloL [Tenormin] 25 mg PO BID 01/20/19 01/19/23 hydrALAZINE HCL [Apresoline] 75 mg PO TID 01/20/19 01/19/23 Aspirin [Adult Low Dose Aspirin EC] 81 mg PO HS 02/17/19 01/19/23 Glucosam/Niko-Msm1/C/Georges/Bosw 1 tab PO BID 02/17/19 01/19/23 [Hwvxefoobwd-Neryyldlcii-NCP Tb] Potassium 99 mg PO DAILY 04/22/19 01/19/23 Albuterol Sulfate [Proair 2 puff INHALATION RT-Q4H PRN 12/28/19 01/19/23 Respiclick] Atorvastatin [Lipitor] 40 mg PO HS 01/19/23 01/19/23 Azelastine HCl [Astelin Nasal 2 spr EA NOSTRIL BID PRN 01/19/23 01/19/23 [place]] Cyanocobalamin (Vitamin B-12) 1,000 mcg PO DAILY 01/19/23 01/19/23 [Vitamin B-12] DULoxetine HCL [Cymbalta] 20 mg PO BID 01/19/23 01/19/23 Ferrous Sulfate [Feosol] 325 mg PO WE 01/19/23 01/19/23 Fexofenadine HCl [Sandra Allergy] 180 mg PO DAILY 01/19/23 01/19/23 Ubidecarenone [Co Q-10] 300 mg PO DAILY 01/19/23 01/19/23 Previous Rx's Medication Instructions Recorded Docusate [Colace] 100 mg PO BID #0 01/22/23 HYDROcodone/APAP 7.5-325MG [[place] 1 each PO Q6HR PRN 7 Days #20 tab 01/22/23 7.5-325] Heparin Sodium,Porcine (1 ml) 5,000 unit SQ Q12HR each 01/22/23 [Heparin Sodium] Lidocaine 5% Patch [Lidoderm 5% 1 patch TOPICAL DAILY #7 patch 01/22/23 Patch] Sennosides [Senokot] 17.2 mg PO HS PRN #30 tab 01/22/23 Allergies Allergy/AdvReac Type Severity Reaction Status Date / Time Beef Containing Products Allergy Unknown Verified 01/19/23 08:22 Milk Containing Products Allergy Unknown Verified 01/19/23 08:22 (Dairy) [Dairy] mold Allergy Dyspnea Verified 01/19/23 08:22 Penicillins Allergy Unknown Verified 01/19/23 08:22 Childhood pollen extracts Allergy Dyspnea Verified 01/19/23 08:22 procaine [From Novocain] Allergy Unknown Verified 01/19/23 08:22 Sulfa (Sulfonamide Allergy Unknown Verified 01/19/23 08:22 Antibiotics) tree and shrub pollen Allergy Dyspnea Verified 01/19/23 08:22 aspirin AdvReac Abdominal Verified 01/19/23 08:22 Pain celecoxib [From Celebrex] AdvReac Dyspnea Verified 01/19/23 08:22 Review of Systems ROS Statement: Those systems with pertinent positive or pertinent negative responses have been documented in the HPI. ROS Other: All systems not noted in ROS Statement are negative. Past Medical History Past Medical History: Hyperlipidemia, Hypertension Additional Past Medical History / Comment(s): "leaky heart valve", palpitations, shortness of breath when climbing stairs, hx migraine History of Any Multi-Drug Resistant Organisms: None Reported Past Surgical History: Orthopedic Surgery Additional Past Surgical History / Comment(s): bilateral knee Past Anesthesia/Blood Transfusion Reactions: No Reported Reaction Past Psychological History: No Psychological Hx Reported Smoking Status: Never smoker Past Alcohol Use History: Occasional Past Drug Use History: None Reported - Past Family History Father Family Medical History: Cancer Additional Family Medical History / Comment(s): colon cancer General Exam Limitations: no limitations General appearance: alert, in no apparent distress, anxious Head exam: Present: atraumatic, normocephalic, normal inspection Eye exam: Present: normal appearance, PERRL, EOMI. Absent: scleral icterus, con junctival injection, periorbital swelling ENT exam: Present: normal exam, mucous membranes moist Neck exam: Present: normal inspection. Absent: tenderness, meningismus, lymphadenopathy Respiratory exam: Present: normal lung sounds bilaterally. Absent: respiratory distress, wheezes, rales, rhonchi, stridor Cardiovascular Exam: Present: regular rate, normal rhythm, normal heart sounds. Absent: systolic murmur, diastolic murmur, rubs, gallop, clicks GI/Abdominal exam: Present: soft, normal bowel sounds. Absent: distended, tenderness, guarding, rebound, rigid Extremities exam: Present: normal inspection, full ROM, normal capillary refill. Absent: tenderness, pedal edema, joint swelling, calf tenderness Back exam: Present: normal inspection Neurological exam: Present: alert, oriented X3, CN II-XII intact Psychiatric exam: Present: normal affect, normal mood Skin exam: Present: warm, dry, intact, normal color. Absent: rash Course Vital Signs 01/18/23 01/18/23 01/18/23 22:17 22:19 22:23 Temperature 98.2 F 98.2 F Pulse Rate 73 73 Pulse Rate [ Space Buyer ] Respiratory 18 18 Rate Blood Pressure 204/74 Blood Pressure [Right Arm] O2 Sat by Pulse 96 95 96 Oximetry 01/18/23 01/18/23 01/19/23 22:44 23:00 00:00 Temperature Pulse Rate 74 73 68 Pulse Rate [ Space Buyer ] Respiratory 20 20 15 Rate Blood Pressure 195/81 195/81 194/84 Blood Pressure [Right Arm] O2 Sat by Pulse 95 95 98 Oximetry 01/19/23 01/19/23 01/19/23 01:00 02:00 08:00 Temperature 97.6 F Pulse Rate 74 76 Pulse Rate [ 78 Space Buyer ] Respiratory 18 21 16 Rate Blood Pressure 178/80 185/78 Blood Pressure 182/74 [Right Arm] O2 Sat by Pulse 97 97 97 Oximetry 01/19/23 01/19/23 11:48 14:09 Temperature Pulse Rate 72 75 Pulse Rate [ Space Buyer ] Respiratory 16 16 Rate Blood Pressure 199/84 139/58 Blood Pressure [Right Arm] O2 Sat by Pulse 96 96 Oximetry - Reevaluation(s) Reevaluation #1: 01/19/23 00:23 Medical record is reviewed Reevaluation #2: 01/19/23 00:23 Patient's pain is improved Reevaluation #3: 01/19/23 00:23 Patient is informed results and questions answered Reevaluation #4: 01/19/23 00:23 Was pt. sent in by a medical professional or institution (, PA, METAL RIVETER, urgent care, hospital, or residential...) When possible be specific @ -no Did you speak to anyone other than the patient for history (EMS, parent, family, police, friend...)? What history was obtained from this source @ -no Did you review nursing and triage notes (agree or disagree)? Why? @ -agree Are old charts reviewed (outside hosp., previous admission, EMS record, old EKG, old radiological studies, urgent care reports/EKG's, residential records)? Report findings @ -yes Differential Diagnosis (chest pain, altered mental status, abdominal pain women, abdominal pain men, vaginal bleeding, weakness, fever, dyspnea, syncope, headache, dizziness, GI bleed, back pain, seizure, CVA, palpatations, mental health, musculoskeletal)? @ -prior EKG interpreted by me (3pts min.). @ -yes X-rays interpreted by me (1pt min.). @ -yes CT interpreted by me (1pt min.). @ -no U/S interpreted by me (1pt. min.). @ -no What testing was considered but not performed or refused? (CT, X-rays, U/S, labs)? Why? @ -none What meds were considered but not given or refused? Why? @ -none Did you discuss the management of the patient with other professionals (professionals i.e. Dr., PA, METAL RIVETER, lab, RT, psych nurse, social scientist, quality assurance group leader, teacher, marine safety officer, correctional counselor/case manager)? Give summary @ -no Was smoking cessation discussed for >3mins.? @ -no Was critical care preformed (if so, how long)? @ -no Were there social determinants of health that impacted care today? How? (Homelessness, low income, unemployed, alcoholism, drug addiction, transportation, low edu. Level, literacy, decrease access to med. care, detention, rehab)? @ -none Was there de-escalation of care discussed even if they declined (Discuss DNR or withdrawal of care, Hospice)? DNR status @ -no What co-morbidities impacted this encounter? (DM, HTN, Smoking, COPD, CAD, Cancer, CVA, ARF, Chemo, Hep., AIDS, mental health diagnosis, sleep apnea, morbid obesity)? @ -none Was patient admitted / discharged? Hospital course, mention meds given and route, prescriptions, significant lab abnormalities, going to OR and other pertinent info. @ - 82 female to the emergency department for a fall. Patient does have pelvic fracture with pain difficult to control. Patient be admitted for pain control Admitted Undiagnosed new problem with uncertain prognosis? @ -no Drug Therapy requiring intensive monitoring for toxicity (Heparin, Nitro, Insu gisele, Cardizem)? @ -no Were any procedures done? @ -no Diagnosis/symptom? @ -Fall with pelvic fracture Acute, or Chronic, or Acute on Chronic? @ -Acute Uncomplicated (without systemic symptoms) or Complicated (systemic symptoms)? @ -Complicated Side effects of treatment? @ -no Exacerbation, Progression, or Severe Exacerbation? @ -exacerbation Poses a threat to life or bodily function? How? (Chest pain, [place], [place], pneumonia, PE, COPD, DKA, ARF, appy, cholecystitis, CVA, Diverticulitis, Homicidal, Suicidal, threat to staff... and all critical care pts) @ -no - Consultations Consultation #1: Spoke with PM were agree to admit this patient Medical Decision Making - Medical Decision Making 82 female to the emergency department for a fall. Patient does have pelvic fracture with pain difficult to control. Patient be admitted for pain control - Lab Data Result diagrams: 01/21/23 06:35 01/21/23 06:35 Lab Results 01/18/23 01/18/23 01/18/23 Range/Units 22:45 22:45 22:45 WBC 10.1 (3.8-10.6) k/uL RBC 4.35 (3.80-5.40) m/uL Hgb 13.2 (11.4-16.0) gm/dL Hct 40.1 (34.0-46.0) % MCV 92.3 (80.0-100.0) fL MCH 30.4 (25.0-35.0) pg MCHC 32.9 (31.0-37.0) g/dL RDW 13.6 (11.5-15.5) % Plt Count 179 (150-450) k/uL MPV 8.8 Neutrophils % 80 % Lymphocytes % 8 % Monocytes % 6 % Eosinophils % 6 % Basophils % 0 % Neutrophils # 8.0 H (1.3-7.7) k/uL Lymphocytes # 0.8 L (1.0-4.8) k/uL Monocytes # 0.6 (0-1.0) k/uL Eosinophils # 0.6 (0-0.7) k/uL Basophils # 0.0 (0-0.2) k/uL PT 9.6 (9.0-12.0) sec INR 0.9 (<1.2) APTT 20.8 L (22.0-30.0) sec Sodium 140 (137-145) mmol/L Potassium 3.3 L (3.5-5.1) mmol/L Chloride 112 H (98-107) mmol/L Carbon Dioxide 17 L (22-30) mmol/L Anion Gap 11 mmol/L BUN 17 (7-17) mg/dL Creatinine 0.47 L (0.52-1.04) mg/dL Est GFR (CKD-EPI)AfAm >90 (>60 ml/min/1.73 sqM) Est GFR (CKD-EPI)NonAf >90 (>60 ml/min/1.73 sqM) Glucose 119 H (74-99) mg/dL Calcium 8.6 (8.4-10.2) mg/dL Phosphorus 2.2 L (2.5-4.5) mg/dL Magnesium 1.9 (1.6-2.3) mg/dL Total Bilirubin 0.7 (0.2-1.3) mg/dL AST 28 (14-36) U/L ALT 17 (4-34) U/L Alkaline Phosphatase 139 H (38-126) U/L Total Protein 5.7 L (6.3-8.2) g/dL Albumin 3.2 L (3.5-5.0) g/dL - EKG Data -: EKG Interpreted by Me (EKG is sinus 73 IN 200 QRS 96 QTc 418) - Radiology Data Radiology results: report reviewed (X-ray pelvis LS spine and chest is positive for pubic rami fracture), image reviewed Disposition Clinical Impression: Fall, Weakness, Pelvic fracture, Pelvic pain, Fracture of right superior pubic ramus, Pubic ramus fracture, Fracture of right inferior pubic ramus Disposition: ADMITTED IP TO THIS [facility] Condition: Fair Is patient prescribed a controlled substance at d/c from ED?: No Time of Disposition: 02:00
[2023-01-18 23:18] LABS: Basophils % (A) 0 %; Eosinophils # (A) 0.6 k/uL (0-0.7); Eosinophils % (A) 6 %; HCT 40.1 % (34.0-46.0); HGB 13.2 gm/dL (11.4-16.0); Lymphocytes # (A) 0.8 k/uL (1.0-4.8); Lymphocytes % (A) 8 %; MCH 30.4 pg (25.0-35.0); MCHC 32.9 g/dL (31.0-37.0); MCV 92.3 fL (80.0-100.0); Mean Platelet Volume 8.8; Monocytes # (A) 0.6 k/uL (0-1.0); Monocytes % (A) 6 %; Neutrophils % (A) 80 %; Platelet Count 179 k/uL (150-450); RBC 4.35 m/uL (3.80-5.40); RDW 13.6 % (11.5-15.5); WBC 10.1 k/uL (3.8-10.6)
[2023-01-18 23:19] LABS: INR 0.9 (<1.2); Partial Thromboplastin Time 20.8 sec (22.0-30.0); Prothrombin Time 9.6 sec (9.0-12.0)
[2023-01-18 23:22] LABS: ALT 17 U/L (4-34); AST 28 U/L (14-36); African American GFR (CKD) >90 (>60 ml/min/1.73 sqM); Albumin 3.2 g/dL (3.5-5.0); Alkaline Phosphatase 139 U/L (38-126); Anion Gap 11 mmol/L; Blood Urea Nitrogen 17 mg/dL (7-17); Calcium 8.6 mg/dL (8.4-10.2); Carbon Dioxide 17 mmol/L (22-30); Chloride 112 mmol/L (98-107); Glucose 119 mg/dL (74-99); Magnesium 1.9 mg/dL (1.6-2.3); Non-African American GFR(CKD) >90 (>60 ml/min/1.73 sqM); Phosphorus 2.2 mg/dL (2.5-4.5); Potassium 3.3 mmol/L (3.5-5.1); Sodium 140 mmol/L (137-145); Total Bilirubin 0.7 mg/dL (0.2-1.3); Total Protein 5.7 g/dL (6.3-8.2)
[2023-01-19] MEDS ORDERED: POTASSIUM BICARBONATE/CIT AC 20 MEQ TABLET.EFF PO ONE (01:35)
[2023-01-19] MEDS ORDERED: NALOXONE 0.4 MG/ML 1 ML VIAL IV PRN (02:32)
[2023-01-19] MEDS: SODIUM CHLORIDE 0.9% 1,000 ML IV SCH ×2 (02:54→21:13)
[2023-01-19] MEDS: HYDROmorphone 1 MG/ML 1 ML SYRINGE IVP PRN ×3 (05:11→16:51)
--- NOTE | 2023-01-19 05:24 | XR ---
EXAM: XR Right Hip With Pelvis When Performed, 1 View CLINICAL HISTORY: ITS.REASON XR Reason: pain TECHNIQUE: Frontal view of the right hip with pelvis when performed. COMPARISON: No relevant prior studies available. IMPRESSION: 1. Evaluation of the sacrum is limited by overlying bowel gas. 2. Acute fractures of the right superior and inferior pubic rami. Consider cross-sectional imaging if there is further concern. 3. No gross evidence of hip fracture. Consider MRI if there is further concern. 4. Chronic calcification overlying the left hemisacrum which may be within the pelvis. <MYCVCSECTION> Communications: 01/19/23 05:38 Verify Receipt Verified receipt with STARLA Bah
--- NOTE | 2023-01-19 05:26 | XR ---
EXAM: XR Lumbosacral Spine, 2 or 3 Views CLINICAL HISTORY: ITS.REASON XR Reason: pain TECHNIQUE: Frontal and lateral views of the lumbar spine and sacrum. COMPARISON: No relevant prior studies available. IMPRESSION: 1. Evaluation is limited by bone demineralization. 2. No evidence of acutely displaced fracture or dislocation within the lumbar spine. Consider cross-sectional imaging if there is further concern. 3. Degenerative changes. 4. Calcification noted at the right aspect of the L2 vertebral body. Initial calcifications noted in the left hemiabdomen.
--- NOTE | 2023-01-19 05:27 | XR ---
EXAM: XR Chest, 1 View CLINICAL HISTORY: ITS.REASON XR Reason: fall TECHNIQUE: Frontal view of the chest. COMPARISON: None. IMPRESSION: 1. Right hemidiaphragm elevation. 2. Prominent cardiac silhouette which may be due in part to technique. 3. Linear area of atelectatic change within the right lower lobe. Findings may be due to atelectatic changes. Infection also possible.
[2023-01-19 06:18] LABS: Appearance,Urine Clear (Clear); Bacteria,Urine Moderate /hpf; Bilirubin,Urine Negative (Negative); Blood,Urine Negative (Negative); Color,Urine Yellow; Glucose,Urine (UA) Negative (Negative); Hyaline Casts,Urine 1 /lpf (0-2); Ketones,Urine 1+ (Negative); Leukocyte Esterase,Urine Small (Negative); Mucus,Urine Occasional /hpf; Nitrite,Urine Negative (Negative); PH, Urine 5.5 (5.0-8.0); Protein,Urine Trace (Negative); RBC,Urine 29 /hpf (0-5); Specific Gravity,Urine 1.017 (1.001-1.035); Urobilinogen,Urine <2.0 mg/dL (<2.0); WBC,Urine 13 /hpf (0-5)
[2023-01-19] MEDS ORDERED: LORazepam 2 MG/ML INJ IV STA (06:24)
--- NOTE | 2023-01-19 08:28 | P.CNOR ---
History of Present Illness - [facility] Consult date: 01/19/23 History of present illness: This patient is an 82-year-old female with a past medical history of hypertension, hyperlipidemia that presented to [facility] emergency department last evening due to hip pain. The patient states she fell Thursday evening in her daughter's home, when she was walking on a linoleum floor with socks. She states she lost her balance and fell. She states she was initially able to ambulate, although the pain increased throughout the weekend. She was brought to the emergency department via EMS for further evaluation. X-rays in the emergency department revealed right superior and inferior pubic rami fractures. The patient was admitted under the care of internal medicine with consult placed to orthopedic surgery. Patient is examined bedside this morning in the emergency department with Dr. Renteria. She is complaining of isolated pain along the right pelvis. She states she does have chronic shoulder pain and needs a shoulder replacement. She does have a history of bilateral knee replacements by Dr. Fabian, although she is not complaining of any new knee pain at this time. There are no ad ditional complaints or concerns. Past Medical History Past Medical History: Hyperlipidemia, Hypertension Additional Past Medical History / Comment(s): "leaky heart valve", palpitations, shortness of breath when climbing stairs, hx migraine History of Any Multi-Drug Resistant Organisms: None Reported Past Surgical History: Orthopedic Surgery Additional Past Surgical History / Comment(s): bilateral knee Past Anesthesia/Blood Transfusion Reactions: No Reported Reaction Past Psychological History: No Psychological Hx Reported Smoking Status: Never smoker Past Alcohol Use History: Occasional Past Drug Use History: None Reported - Past Family History Father Family Medical History: Cancer Additional Family Medical History / Comment(s): colon cancer Medications and Allergies Home Medications Medication Instructions Recorded Confirmed Type Irbesartan 300 mg PO DAILY 11/24/13 12/28/19 History Levothyroxine Sodium [Synthroid] 75 mcg PO [id number] 11/24/13 12/28/19 History Ascorbic Acid [Vitamin C with Juilssa 500 mg PO DAILY 01/20/19 12/28/19 History Hips] Cholecalciferol (Vitamin D3) 2,000 unit PO DAILY 01/20/19 12/28/19 History [Vitamin D3] Diclofenac Sodium [Voltaren Gel] 1 applic TOPICAL DAILY PRN 01/20/19 12/28/19 History Lansoprazole [Prevacid] 15 mg PO HS 01/20/19 12/28/19 History Levothyroxine Sodium [Synthroid] 112.5 mcg PO BOUDREAUX 01/20/19 12/28/19 History Lutein 40 mg PO DAILY 01/20/19 12/28/19 History Melatonin 10 mg PO HS 01/20/19 12/28/19 History Montelukast [Singulair] 10 mg PO HS 01/20/19 12/28/19 History Turmeric Root Extract [Turmeric] 1,000 mg PO BID 01/20/19 12/28/19 History Vitamin E (Dl,Tocopheryl Acet) 400 unit PO DAILY 01/20/19 12/28/19 History [Vitamin E (400 Iu = 180 mg)] Zinc Gluconate [Zinc] 50 mg PO DAILY 01/20/19 12/28/19 History atenoloL [Tenormin] 25 mg PO BID 01/20/19 12/28/19 History hydrALAZINE HCL [Apresoline] 50 mg PO BID 01/20/19 12/28/19 History Aspirin [Adult Low Dose Aspirin EC] 81 mg PO HS 02/17/19 12/28/19 History Fluticasone Nasal [place] [Flonase 1 spray EA NOSTRIL DAILY 02/17/19 12/28/19 Hist ory Nasal [place]] Glucosam/Niko-Msm1/C/Georges/Bosw 1 tab PO BID 02/17/19 12/28/19 History [Fuwiqdzsabe-Dgtwrcllmsp-LZL Tb] Propylene Glycol/Peg 400/Pf 1 drop BOTH EYES DAILY PRN 02/17/19 12/28/19 History [Systane 0.3-0.4% Ophth [place]perette] Potassium 99 mg PO DAILY 04/22/19 12/28/19 History Atorvastatin [Lipitor] 80 mg PO HS #90 tab 04/27/19 12/28/19 Rx Albuterol Sulfate [Proair 2 puff INHALATION RT-Q4H PRN 12/28/19 12/28/19 History Respiclick] Biotin 10,000 mcg PO DAILY 12/28/19 12/28/19 History Fish Oil/Dha/Epa [Fish Oil 1,200 1 cap PO DAILY 12/28/19 12/28/19 History mg Fish Oil] Vitamin A 2400mcg 2,400 mcg PO DAILY 12/28/19 12/28/19 History traZODone HCL 50 mg PO HS 12/28/19 12/28/19 History Nitroglycerin Sl Tabs [Nitrostat] 0.4 mg SUBLINGUAL Q5M PRN #25 tab 12/29/19 Rx Clopidogrel Bisulfate [Plavix] 75 mg PO DAILY #30 tab 12/31/19 Rx Loratadine [Claritin] 10 mg PO DAILY tab 12/31/19 Rx predniSONE [Deltasone] 40 mg PO DAILY #8 tab 10/09/20 Rx Allergies Allergy/AdvReac Type Severity Reaction Status Date / Time Beef Containing Products Allergy Unknown Verified 01/19/23 08:22 Milk Containing Products Allergy Unknown Verified 01/19/23 08:22 (Dairy) [Dairy] mold Allergy Dyspnea Verified 01/19/23 08:22 Penicillins Allergy Unknown Verified 01/19/23 08:22 Childhood pollen extracts Allergy Dyspnea Verified 01/19/23 08:22 procaine [From Novocain] Allergy Unknown Verified 01/19/23 08:22 Sulfa (Sulfonamide Allergy Unknown Verified 01/19/23 08:22 Antibiotics) tree and shrub pollen Allergy Dyspnea Verified 01/19/23 08:22 aspirin AdvReac Abdominal Verified 01/19/23 08:22 Pain celecoxib [From Celebrex] AdvReac Dyspnea Verified 01/19/23 08:22 Physical Examination On examination, patient is sitting up on the gurney in no apparent distress. She is alert and oriented 3. Her head appears normocephalic and atraumatic. Her breathing appears nonlabored. On inspection of the bilateral upper extremities, there are no obvious deformities or signs of trauma. On inspection of the bilateral lower extremities, no obvious deformities or signs of trauma. She does have healed incisions over the bilateral anterior knees consistent with prior TKA. No pain log rolling of the bilateral hips. Motor and sensory function is intact of the bilateral lower extremities. Bilateral lower extremities are warm and well perfused. Results Right hip and pelvis x-ray 01/19/23: Right minimally displaced superior and inferior pubic rami fractures. No additional fractures identified. - Labs Labs: Abnormal Lab Results - Last 24 Hours (Table) 01/18/23 01/18/23 01/18/23 Range/Units 22:45 22:45 22:45 Neutrophils # 8.0 H (1.3-7.7) k/uL Lymphocytes # 0.8 L (1.0-4.8) k/uL APTT 20.8 L (22.0-30.0) sec Potassium 3.3 L (3.5-5.1) mmol/L Chloride 112 H (98-107) mmol/L Carbon Dioxide 17 L (22-30) mmol/L Creatinine 0.47 L (0.52-1.04) mg/dL Glucose 119 H (74-99) mg/dL Phosphorus 2.2 L (2.5-4.5) mg/dL Alkaline Phosphatase 139 H (38-126) U/L Total Protein 5.7 L (6.3-8.2) g/dL Albumin 3.2 L (3.5-5.0) g/dL Urine Protein (Negative) Urine Ketones (Negative) Ur Leukocyte Esterase (Negative) Urine RBC (0-5) /hpf Urine WBC (0-5) /hpf Urine Bacteria (None) /hpf Urine Mucus (None) /hpf 01/19/23 Range/Units 05:45 Neutrophils # (1.3-7.7) k/uL Lymphocytes # (1.0-4.8) k/uL APTT (22.0-30.0) sec Potassium (3.5-5.1) mmol/L Chloride (98-107) mmol/L Carbon Dioxide (22-30) mmol/L Creatinine (0.52-1.04) mg/dL Glucose (74-99) mg/dL Phosphorus (2.5-4.5) mg/dL Alkaline Phosphatase (38-126) U/L Total Protein (6.3-8.2) g/dL Albumin (3.5-5.0) g/dL Urine Protein Trace H (Negative) Urine Ketones 1+ H (Negative) Ur Leukocyte Esterase Small H (Negative) Urine RBC 29 H (0-5) /hpf Urine WBC 13 H (0-5) /hpf Urine Bacteria Moderate H (None) /hpf Urine Mucus Occasional H (None) /hpf H & H 01/18/23 Range/Units 22:45 Hgb 13.2 (11.4-16.0) gm/dL Hct 40.1 (34.0-46.0) % Coagulation 01/18/23 Range/Units 22:45 INR 0.9 (<1.2) Result Diagrams: 01/18/23 22:45 01/18/23 22:45 Assessment and Plan Assessment: Right superior and inferior pubic rami fractures Plan: - The clinical and imaging findings were discussed with the patient. No surgical intervention is recommended. Patient may ambulate and weight-bear as tolerated with a walker and assistance. - Recommend evaluation by physical therapy for gait and balance training. - Pain management as needed. We will defer pain management to admitting team. - We will follow patient peripherally as she remains inpatient. She should follow-up for repeat x-rays in 2 weeks. She may follow-up at [facility], or if she prefers, she may follow-up with her established orthopedic surgeon Dr. Fabian.
[2023-01-19 10:32] LABS: Basophils % (A) 0 %; Eosinophils # (A) 0.6 k/uL (0-0.7); Eosinophils % (A) 7 %; HCT 34.3 % (34.0-46.0); Hypochromasia Slight; Lymphocytes # (A) 0.9 k/uL (1.0-4.8); Lymphocytes % (A) 11 %; MCH 30.3 pg (25.0-35.0); MCHC 31.9 g/dL (31.0-37.0); Mean Platelet Volume 8.5; Monocytes # (A) 0.6 k/uL (0-1.0); Monocytes % (A) 8 %; Neutrophils # (A) 5.5 k/uL (1.3-7.7); Neutrophils % (A) 71 %; Platelet Count 180 k/uL (150-450); RBC 3.61 m/uL (3.80-5.40); RDW 13.6 % (11.5-15.5); WBC 7.7 k/uL (3.8-10.6)
[2023-01-19 10:49] LABS: ALT 14 U/L (4-34); AST 22 U/L (14-36); African American GFR (CKD) >90 (>60 ml/min/1.73 sqM); Albumin 2.8 g/dL (3.5-5.0); Albumin/Globulin Ratio 1.2; Alkaline Phosphatase 96 U/L (38-126); Anion Gap 6 mmol/L; Blood Urea Nitrogen 16 mg/dL (7-17); Calcium 8.1 mg/dL (8.4-10.2); Carbon Dioxide 20 mmol/L (22-30); Chloride 113 mmol/L (98-107); Globulin 2.3 g/dL; Glucose 103 mg/dL (74-99); Magnesium 1.9 mg/dL (1.6-2.3); Non-African American GFR(CKD) >90 (>60 ml/min/1.73 sqM); Potassium 3.4 mmol/L (3.5-5.1); Sodium 139 mmol/L (137-145); Total Bilirubin 0.5 mg/dL (0.2-1.3); Total Protein 5.1 g/dL (6.3-8.2)
[2023-01-19] MEDS: DULoxetine HCL 20 MG CAPSULE.DR PO SCH ×2 (11:50→21:13)
[2023-01-19] MEDS: LEVOTHYROXINE 75 MCG TAB PO SCH (11:50)
[2023-01-19] MEDS: hydrALAZINE HCL 25 MG TAB PO SCH ×3 (11:50→21:12)
[2023-01-19] MEDS: atenoloL 25 MG TAB PO SCH ×2 (11:50→21:13)
[2023-01-19] MEDS: LOSARTAN 50 MG TAB PO SCH (11:51)
[2023-01-19] MEDS: POTASSIUM CHLORIDE ER 10 MEQ TAB.ER.PRT PO SCH (11:51)
[2023-01-19] MEDS: MONTELUKAST 10 MG TAB PO SCH (21:12)
[2023-01-19] MEDS: ATORVASTATIN 40 MG TAB PO SCH (21:12)
[2023-01-19] MEDS: HEPARIN SODIUM,PORCINE 5,000 UNIT/ML 1 ML VIAL SQ SCH (21:12)
[2023-01-19] MEDS: MELATONIN 5 MG TABLET PO SCH (21:13)
[2023-01-19] MEDS: DOCUSATE 100 MG CAP PO SCH (21:13)
--- NOTE | 2023-01-19 23:09 | P.HPIM ---
History of Present Illness H&P Date: 01/19/23 Chief Complaint: Hip pain Patient is a 82-year-old female with a past medical history of hypertension, hyperlipidemia, valvular heart disease and history of migraine headaches presents to ER status post fall and severe hip pain and back pain. Patient states that she was walking on the new floor with her socks on and suddenly slipped and fell on her back. Came to ER due to persistent pain and also complaining of pain wrapping around her back and abdomen. Patient states that she had a fall about 3 days ago. Was able to walk yesterday but today unable to ambulate and presented to ER.Denied hitting her head. Denies any dysuria or hematuria. No fever no chills. No chest pain or shortness of breath. No nausea vomiting abdominal pain or diarrhea. Denies any recent illnesses. Patient is supposed to get reverse arthroplasty on the right shoulder which she is scheduled sometime this month.. EKG showed sinus rhythm. X-ray hip and pelvis showed acute fracture of the right superior and inferior pubic rami. Consider cross-sectional imaging if there is further concern. No gross evidence of hip fracture. Chronic calcification overlying the left hemisacrum which may be within the pelvis. Chest x-ray showed right hemidiaphragm elevation. Prominent cardiac silhouette is may be due to part to technique. Linear area of atelectatic changes within the right lower lobe. Laboratory data showed WBC 10.1 hemoglobin 13.1 platelets 179 Sodium 140 potassium 3.3 chloride 112 bicarb is 17 BUN 17 and creatinine 0.47 and blood sugar 119 Liver enzymes showed AST 28 ALT 17 and alk phos 139 Urinalysis showed small leukocyte esterase with elevated RBCs and WBCs. Review of Systems Constitutional: Patient denies any fever or chills . No generalized weakness or weight loss. Abdomen: Patient denied nausea vomiting and diarrhea and abdominal pain. Cardiovascular: Patient denies any chest pain or short of breath no palp itations. Respiratory: patient denied any cough or sputum production. No shortness of breath Neurologic: Patient denied any numbness or tingling headache. Musculoskeletal: Patient denies complaints of lower back pain and hip pain. Skin: Negative Psychiatric: Negative Endocrine: No heat or cold intolerance. No recent weight gain. Genitourinary: No dysuria or hematuria. All other 14 point ROS negative except the above Past Medical History Past Medical History: Hyperlipidemia, Hypertension Additional Past Medical History / Comment(s): "leaky heart valve", palpitations, shortness of breath when climbing stairs, hx migraine History of Any Multi-Drug Resistant Organisms: None Reported Past Surgical History: Orthopedic Surgery Additional Past Surgical History / Comment(s): bilateral knee Past Anesthesia/Blood Transfusion Reactions: No Reported Reaction Past Psychological History: No Psychological Hx Reported Smoking Status: Never smoker Past Alcohol Use History: Occasional Past Drug Use History: None Reported - Past Family History Father Family Medical History: Cancer Additional Family Medical History / Comment(s): colon cancer Medications and Allergies Home Medications Medication Instructions Recorded Confirmed Type Irbesartan 300 mg PO DAILY 11/24/13 01/19/23 History Levothyroxine Sodium [Synthroid] 75 mcg PO DAILY 11/24/13 01/19/23 History Cholecalciferol (Vitamin D3) 50 mcg PO DAILY 01/20/19 01/19/23 History [Vitamin D3] Lansoprazole [Prevacid] 15 mg PO DAILY 01/20/19 01/19/23 History Melatonin 10 mg PO HS 01/20/19 01/19/23 History Montelukast [Singulair] 10 mg PO HS 01/20/19 01/19/23 History Turmeric Root Extract [Turmeric] 1,000 mg PO BID 01/20/19 01/19/23 History Vitamin E (Dl,Tocopheryl Acet) 400 unit PO DAILY 01/20/19 01/19/23 History [Vitamin E (400 Iu = 180 mg)] atenoloL [Tenormin] 25 mg PO BID 01/20/19 01/19/23 History hydrALAZINE HCL [Apresoline] 75 mg PO TID 01/20/19 01/19/23 History Aspirin [Adult Low Dose Aspirin EC] 81 mg PO HS 02/17/19 01/19/23 History Glucosam/Niko-Msm1/C/Georges/Bosw 1 tab PO BID 02/17/19 01/19/23 History [Utrugtmhims-Eiqbcssmtzs-BKC Tb] Potassium 99 mg PO DAILY 04/22/19 01/19/23 History Albuterol Sulfate [Proair 2 puff INHALATION RT-Q4H PRN 12/28/19 01/19/23 History Respiclick] Atorvastatin [Lipitor] 40 mg PO HS 01/19/23 01/19/23 History Azelastine HCl [Astelin Nasal 2 spr EA NOSTRIL BID PRN 01/19/23 01/19/23 History [place]] Cyanocobalamin (Vitamin B-12) 1,000 mcg PO DAILY 01/19/23 01/19/23 History [Vitamin B-12] DULoxetine HCL [Cymbalta] 20 mg PO BID 01/19/23 01/19/23 History Docusate [Colace] 100 mg PO HS 01/19/23 01/19/23 History Ferrous Sulfate [Feosol] 325 mg PO WE 01/19/23 01/19/23 History Fexofenadine HCl [Sandra Allergy] 180 mg PO DAILY 01/19/23 01/19/23 History Ubidecarenone [Co Q-10] 300 mg PO DAILY 01/19/23 01/19/23 History Allergies Allergy/AdvReac Type Severity Reaction Status Date / Time Beef Containing Products Allergy Unknown Verified 01/19/23 08:22 Milk Containing Products Allergy Unknown Verified 01/19/23 08:22 (Dairy) [Dairy] mold Allergy Dyspnea Verified 01/19/23 08:22 Penicillins Allergy Unknown Verified 01/19/23 08:22 Childhood pollen extracts Allergy Dyspnea Verified 01/19/23 08:22 procaine [From Novocain] Allergy Unknown Verified 01/19/23 08:22 Sulfa (Sulfonamide Allergy Unknown Verified 01/19/23 08:22 Antibiotics) tree and shrub pollen Allergy Dyspnea Verified 01/19/23 08:22 aspirin AdvReac Abdominal Verified 01/19/23 08:22 Pain celecoxib [From Celebrex] AdvReac Dyspnea Verified 01/19/23 08:22 Physical Exam Vitals: Vital Signs Temp Pulse Resp BP Pulse Ox 01/19/23 02:00 76 21 185/78 97 01/19/23 01:00 74 18 178/80 97 01/19/23 00:00 68 15 194/84 98 01/18/23 23:00 73 20 195/81 95 01/18/23 22:44 74 20 195/81 95 01/18/23 22:23 98.2 F 73 18 204/74 96 01/18/23 22:19 95 01/18/23 22:17 98.2 F 73 18 96 Intake and Output 10/12/0301/19/23 01/19/23 22:59 06:59 14:59 Other: Weight 63.503 kg PHYSICAL EXAMINATION: Patient is lying in the bed comfortably, no acute distress, awake alert and oriented.. HEENT: Normocephalic. Neck is supple. Pupils reactive. Nostrils clear. Oral cavity is moist. Neck reveals no JVD, carotid bruits, or thyromegaly. CHEST EXAMINATION: Trachea is central. Symmetrical expansion. Lung elam clear to auscultation and percussion. Bibasilar diminished sounds. CARDIAC: Normal S1, S2 with no gallops. No murmurs ABDOMEN: Soft. Bowel sounds normal. No organomegaly. No abdominal bruits. Extremities: reveal no edema. No clubbing or cyanosis Neurologically awake, alert, oriented x3. Able to move all extremities while in bed. Focal deficits noted Skin: No rash or skin lesions. Psychiatric: Cooperative. Nonsuicidal Musculoskeletal: No joint swelling or deformity. Results CBC & Chem 7: 01/19/23 10:09 01/19/23 10:09 Labs: Abnormal Lab Results - Last 24 Hours (Table) 01/18/23 01/18/23 01/18/23 Range/Units 22:45 22:45 22:45 Neutrophils # 8.0 H (1.3-7.7) k/uL Lymphocytes # 0.8 L (1.0-4.8) k/uL APTT 20.8 L (22.0-30.0) sec Potassium 3.3 L (3.5-5.1) mmol/L Chloride 112 H (98-107) mmol/L Carbon Dioxide 17 L (22-30) mmol/L Creatinine 0.47 L (0.52-1.04) mg/dL Glucose 119 H (74-99) mg/dL Phosphorus 2.2 L (2.5-4.5) mg/dL Alkaline Phosphatase 139 H (38-126) U/L Total Protein 5.7 L (6.3-8.2) g/dL Albumin 3.2 L (3.5-5.0) g/dL Urine Protein (Negative) Urine Ketones (Negative) Ur Leukocyte Esterase (Negative) Urine RBC (0-5) /hpf Urine WBC (0-5) /hpf Urine Bacteria (None) /hpf Urine Mucus (None) /hpf 10/09/23 Range/Units 05:45 Neutrophils # (1.3-7.7) k/uL Lymphocytes # (1.0-4.8) k/uL APTT (22.0-30.0) sec Potassium (3.5-5.1) mmol/L Chloride (98-107) mmol/L Carbon Dioxide (22-30) mmol/L Creatinine (0.52-1.04) mg/dL Glucose (74-99) mg/dL Phosphorus (2.5-4.5) mg/dL Alkaline Phosphatase (38-126) U/L Total Protein (6.3-8.2) g/dL Albumin (3.5-5.0) g/dL Urine Protein Trace H (Negative) Urine Ketones 1+ H (Negative) Ur Leukocyte Esterase Small H (Negative) Urine RBC 29 H (0-5) /hpf Urine WBC 13 H (0-5) /hpf Urine Bacteria Moderate H (None) /hpf Urine Mucus Occasional H (None) /hpf Thrombosis Risk Factor Assmnt - DVT/VTE Prophylaxis DVT/VTE Prophylaxis: Pharmacologic Prophylaxis ordered Assessment and Plan Assessment: Status post mechanical fall 3 days ago. Acute fracture of the right superior and inferior pubic rami Lower back pain and right hip pain. Hypokalemia Hypertension. Uncontrolled Hyperlipidemia Hypothyroidism Valvular heart disease Right shoulder osteoarthritis DVT prophylaxis with heparin subcu Plan: Patient will be continued on gentle IV hydration and monitor renal function. Started back on home blood pressure medications and titrate as needed. Continue with pain management. Continue with bowel regimen. Encourage incentive spirometry. Orthopedic surgery was consulted for evaluation. Follow closely. Time with Patient: Greater than 30
[2023-01-20] MEDS: HYDROmorphone 1 MG/ML 1 ML SYRINGE IVP PRN ×4 (05:03→20:58)
[2023-01-20] MEDS: LEVOTHYROXINE 75 MCG TAB PO SCH (05:36)
[2023-01-20] MEDS: SODIUM CHLORIDE 0.9% 1,000 ML IV SCH ×2 (05:36→19:59)
[2023-01-20 06:37] LABS: Basophils % (A) 0 %; Eosinophils # (A) 0.6 k/uL (0-0.7); Eosinophils % (A) 9 %; HCT 32.1 % (34.0-46.0); HGB 10.4 gm/dL (11.4-16.0); Lymphocytes # (A) 0.9 k/uL (1.0-4.8); Lymphocytes % (A) 12 %; MCH 30.4 pg (25.0-35.0); MCHC 32.4 g/dL (31.0-37.0); MCV 93.7 fL (80.0-100.0); Mean Platelet Volume 8.6; Monocytes # (A) 0.7 k/uL (0-1.0); Monocytes % (A) 9 %; Neutrophils # (A) 4.9 k/uL (1.3-7.7); Neutrophils % (A) 68 %; Platelet Count 183 k/uL (150-450); RBC 3.43 m/uL (3.80-5.40); RDW 13.6 % (11.5-15.5); WBC 7.2 k/uL (3.8-10.6)
[2023-01-20 06:58] LABS: ALT 13 U/L (4-34); AST 20 U/L (14-36); African American GFR (CKD) >90 (>60 ml/min/1.73 sqM); Albumin 2.6 g/dL (3.5-5.0); Alkaline Phosphatase 85 U/L (38-126); Anion Gap 4 mmol/L; Blood Urea Nitrogen 17 mg/dL (7-17); Calcium 8.1 mg/dL (8.4-10.2); Carbon Dioxide 23 mmol/L (22-30); Chloride 112 mmol/L (98-107); Glucose 109 mg/dL (74-99); Magnesium 1.9 mg/dL (1.6-2.3); Non-African American GFR(CKD) >90 (>60 ml/min/1.73 sqM); Phosphorus 2.9 mg/dL (2.5-4.5); Potassium 3.7 mmol/L (3.5-5.1); Sodium 139 mmol/L (137-145); Total Bilirubin 0.5 mg/dL (0.2-1.3); Total Protein 4.8 g/dL (6.3-8.2)
[2023-01-20] MEDS: DULoxetine HCL 20 MG CAPSULE.DR PO SCH ×2 (08:35→20:58)
[2023-01-20] MEDS: POTASSIUM CHLORIDE ER 10 MEQ TAB.ER.PRT PO SCH (08:35)
[2023-01-20] MEDS: atenoloL 25 MG TAB PO SCH ×2 (08:35→20:58)
[2023-01-20] MEDS: PANTOPRAZOLE 40 MG TABLET PO SCH (08:35)
[2023-01-20] MEDS: hydrALAZINE HCL 25 MG TAB PO SCH ×3 (08:35→20:57)
[2023-01-20] MEDS: LOSARTAN 50 MG TAB PO SCH (08:35)
[2023-01-20] MEDS: HEPARIN SODIUM,PORCINE 5,000 UNIT/ML 1 ML VIAL SQ SCH ×2 (08:36→20:58)
[2023-01-20] MEDS ORDERED: POTASSIUM CHLORIDE ER 20 MEQ TAB.ER PO STA (10:33)
[2023-01-20] MEDS: DOCUSATE 100 MG CAP PO SCH (20:57)
[2023-01-20] MEDS: MONTELUKAST 10 MG TAB PO SCH (20:57)
[2023-01-20] MEDS: ATORVASTATIN 40 MG TAB PO SCH (20:57)
[2023-01-20] MEDS: MELATONIN 5 MG TABLET PO SCH (20:57)
[2023-01-21] MEDS: HYDROmorphone 1 MG/ML 1 ML SYRINGE IVP PRN ×3 (00:29→08:08)
--- NOTE | 2023-01-21 01:47 | P.PN ---
Subjective Progress Note Date: 01/20/23 Patient is a 82-year-old female with a past medical history of hypertension, hyperlipidemia, valvular heart disease and history of migraine headaches presents to ER status post fall and severe hip pain and back pain. Patient states that she was walking on the new floor with her socks on and suddenly slip ped and fell on her back. Came to ER due to persistent pain and also complaining of pain wrapping around her back and abdomen. Patient states that she had a fall about 3 days ago. Was able to walk yesterday but today unable to ambulate and presented to ER.Denied hitting her head. Denies any dysuria or hematuria. No fever no chills. No chest pain or shortness of breath. No nausea vomiting abdominal pain or diarrhea. Denies any recent illnesses. Patient is supposed to get reverse arthroplasty on the right shoulder which she is scheduled sometime this month.. EKG showed sinus rhythm. X-ray hip and pelvis showed acute fracture of the right superior and inferior pubic rami. Consider cross-sectional imaging if there is further concern. No gross evidence of hip fracture. Chronic calcification overlying the left hemisacrum which may be within the pelvis. Chest x-ray showed right hemidiaphragm elevation. Prominent cardiac silhouette is may be due to part to technique. Linear area of atelectatic changes within the right lower lobe. Laboratory data showed WBC 10.1 hemoglobin 13.1 platelets 179 Sodium 140 potassium 3.3 chloride 112 bicarb is 17 BUN 17 and creatinine 0.47 and blood sugar 119 Liver enzymes showed AST 28 ALT 17 and alk phos 139 Urinalysis showed small leukocyte esterase with elevated RBCs and WBCs. 01/20/2023 Patient is currently in the recliner. Still complains of right hip pain and is able to get up and walk. No complaints of chest pain or shortness of breath. Currently on room air. No nausea vomiting abdominal pain or diarrhea. Aidee erating oral diet. PT OT was consulted. Laboratory data showed WBC 7.2 hemoglobin 10.4 and platelets 183 Sodium 139 potassium 3.7 chloride 112 bicarb is 23 BUN 17 and creatinine 0.52 and blood sugar is 109 and albumin 2.6. Current medications reviewed. Objective - Vital Signs Vital signs: Vital Signs Temp 98.3 F 01/20/23 13:12 Pulse 74 01/20/23 13:12 Resp 18 01/20/23 13:12 BP 180/70 01/20/23 13:12 Pulse Ox 92 L 01/20/23 13:12 FiO2 Intake & Output 01/20/23 01/20/23 01/21/23 06:59 18:59 06:59 Intake Total 250 1200 Output Total 950 700 Balance -700 500 Intake: Intake, IV Titration 600 Amount Sodium Chloride 0.9% 1, 600 000 ml @ 75 mls/hr IV . [id number] [facility] Rx#:[id number] Oral 250 600 Output: Urine 950 700 Uretheral (Myles) 950 Other: Voiding Method Indwelling Catheter Indwelling Catheter - Exam PHYSICAL EXAMINATION: Patient is lying in the bed comfortably, no acute distress, awake alert and oriented.. HEENT: Normocephalic. Neck is supple. Pupils reactive. Nostrils clear. Oral cavity is moist. Neck reveals no JVD, carotid bruits, or thyromegaly. CHEST EXAMINATION: Trachea is central. Symmetrical expansion. Lung elam clear to auscultation and percussion. CARDIAC: Normal S1, S2 with no gallops. No murmurs ABDOMEN: Soft. Bowel sounds normal. No organomegaly. No abdominal bruits. Extremities: reveal no edema. No clubbing or cyanosis Neurologically awake, alert, oriented x3. Able to move all extremities while in bed. no Focal deficits noted Skin: No rash or skin lesions. Psychiatric: Cooperative. Nonsuicidal Musculoskeletal: No joint swelling or deformity.Right hip decreased range of motion - Labs CBC & Chem 7: 01/20/23 06:26 01/20/23 06:26 Labs: Abnormal Lab Results - Last 24 Hours (Table) 01/20/23 01/20/23 Range/Units 06:26 06:26 RBC 3.43 L (3.80-5.40) m/uL Hgb 10.4 L (11.4-16.0) gm/dL Hct 32.1 L (34.0-46.0) % Lymphocytes # 0.9 L (1.0-4.8) k/uL Chloride 112 H (98-107) mmol/L Glucose 109 H (74-99) mg/dL Calcium 8.1 L (8.4-10.2) mg/dL Total Protein 4.8 L (6.3-8.2) g/dL Albumin 2.6 L (3.5-5.0) g/dL Assessment and Plan Assessment: Status post mechanical fall 3 days ago. Acute fracture of the right superior and inferior pubic rami Lower back pain and right hip pain. Hypokalemia Hypertension. Uncontrolled Hyperlipidemia Hypothyroidism Valvular heart disease Right shoulder osteoarthritis DVT prophylaxis with heparin subcu Plan: Patient will be continued on pain management. Encourage PT OT. Patient is tolerating oral diet and will reduce IV hydration. c/w home blood pressure medications and titrate as needed. Continue with pain management. Continue with bowel regimen. Encourage incentive spirometry. Orthopedic surgery recommends no surgical intervention. Okay to ambulate and weight-bear as tolerated with a walker and assistance. PT OT and patient may need rehab transfer. Follow-up with orthopedic surgery in the clinic in the next 2 weeks for repeat x-rays. Time with Patient: Greater than 30
[2023-01-21] MEDS: SODIUM CHLORIDE 0.9% 1,000 ML IV SCH (02:29)
[2023-01-21] MEDS: LEVOTHYROXINE 75 MCG TAB PO SCH (06:39)
[2023-01-21] MEDS: PANTOPRAZOLE 40 MG TABLET PO SCH (06:39)
[2023-01-21 06:54] LABS: Basophils % (A) 0 %; Eosinophils # (A) 0.7 k/uL (0-0.7); Eosinophils % (A) 7 %; HCT 32.1 % (34.0-46.0); HGB 10.6 gm/dL (11.4-16.0); Lymphocytes % (A) 11 %; MCH 30.1 pg (25.0-35.0); MCV 91.2 fL (80.0-100.0); Mean Platelet Volume 9.3; Monocytes # (A) 0.8 k/uL (0-1.0); Monocytes % (A) 9 %; Neutrophils # (A) 6.6 k/uL (1.3-7.7); Neutrophils % (A) 71 %; Platelet Count 200 k/uL (150-450); RBC 3.52 m/uL (3.80-5.40); RDW 13.5 % (11.5-15.5); WBC 9.4 k/uL (3.8-10.6)
[2023-01-21 07:26] LABS: African American GFR (CKD) >90 (>60 ml/min/1.73 sqM); Anion Gap 5 mmol/L; Blood Urea Nitrogen 13 mg/dL (7-17); Calcium 8.6 mg/dL (8.4-10.2); Carbon Dioxide 21 mmol/L (22-30); Chloride 110 mmol/L (98-107); Glucose 109 mg/dL (74-99); Non-African American GFR(CKD) >90 (>60 ml/min/1.73 sqM); Potassium 3.8 mmol/L (3.5-5.1); Sodium 136 mmol/L (137-145)
[2023-01-21] MEDS: hydrALAZINE HCL 25 MG TAB PO SCH ×3 (08:08→20:48)
[2023-01-21] MEDS: HEPARIN SODIUM,PORCINE 5,000 UNIT/ML 1 ML VIAL SQ SCH ×2 (08:08→20:50)
[2023-01-21] MEDS: DULoxetine HCL 20 MG CAPSULE.DR PO SCH ×2 (08:08→21:19)
[2023-01-21] MEDS: atenoloL 25 MG TAB PO SCH ×2 (08:08→20:49)
[2023-01-21] MEDS: POTASSIUM CHLORIDE ER 10 MEQ TAB.ER.PRT PO SCH (08:09)
[2023-01-21] MEDS: LOSARTAN 50 MG TAB PO SCH (08:09)
[2023-01-21] MEDS ORDERED: HYDROmorphone 0.5 MG/0.5 ML SYRINGE IVP PRN (08:35)
--- NOTE | 2023-01-21 08:36 | P.PN ---
Subjective Patient is a 82-year-old female with a past medical history of hypertension, hyperlipidemia, valvular heart disease and history of migraine headaches presents to ER status post fall and severe hip pain and back pain. Patient states that she was walking on the new floor with her socks on and suddenly slipped and fell on her back. Came to ER due to persistent pain and also complaining of pain wrapping around her back and abdomen. Patient states that she had a fall about 3 days ago. Was able to walk yesterday but today unable to ambulate and presented to ER.Denied hitting her head. Denies any dysuria or hematuria. No fever no chills. No chest pain or shortness of breath. No nausea vomiting abdominal pain or diarrhea. Denies any recent illnesses. Patient is supposed to get reverse arthroplasty on the right shoulder which she is scheduled sometime this month.. EKG showed sinus rhythm. X-ray hip and pelvis showed acute fracture of the right superior and inferior pubic rami. Consider cross-sectional imaging if there is further concern. No gross evidence of hip fracture. Chronic calcification overlying the left hemisacrum which may be within the pelvis. Chest x-ray showed right hemidiaphragm elevation. Prominent cardiac silhouette is may be due to part to technique. Linear area of atelectatic changes within the right lower lobe. Laboratory data showed WBC 10.1 hemoglobin 13.1 platelets 179 Sodium 140 potassium 3.3 chloride 112 bicarb is 17 BUN 17 and creatinine 0.47 and blood sugar 119 Liver enzymes showed AST 28 ALT 17 and alk phos 139 Urinalysis showed small leukocyte esterase with elevated RBCs and WBCs. 01/20/2023 Patient is currently in the recliner. Still complains of right hip pain and is able to get up and walk. No complaints of chest pain or shortness of breath. Currently on room air. No nausea vomiting abdominal pain or diarrhea. Tolerating oral diet. PT OT was consulted. Laboratory data showed WBC 7.2 hemoglobin 10.4 and platelets 183 Sodium 139 potassium 3.7 chloride 112 bicarb is 23 BUN 17 and creatinine 0.52 and blood sugar is 109 and albumin 2.6. 01/21/2023 This is a pleasant 82 years old female with multiple medical problems, dense initially because of a fall about 3 days prior to hospitalization. She was found to have pelvic fracture and orthopedic team recommended conservative treatment. Currently she is complaining of from right groin pain about 10/10 increased with movement, decreased with pain shot down to 4/10 now and she does not look in distress. Also patient is a known case of significant urinary incontinence, she follow up with Dr. garcia, who saw him about one month ago because she was tired of using diapers of ITS AND COMPLAINED FROM URINARY URGENCY AND INCONTINENCE, SHE CONFIRMS THESE ARE CHRONIC PROBLEMS She denies any worsening urinary symptoms over the last [address] gonzalez was planning to prescribe her a device to help her with urine incontinence but then she fell before this happens. Currently she has a Myles catheter in and she is happy with that. She denies any dysuria. No suprapubic pain or tenderness. No fever, no leukocytosis. She has mild anemia with hemoglobin 11, 10.4, 10.6 today. BMP is unremarkable. Urinalysis is mildly abnormal but no overt infection and patient is asymptomatic. Patient is medically stable for discharge once authorization is obtained for rehab Objective - Vital Signs Vital signs: Vital Signs Temp 98.3 F 01/21/23 07:43 Pulse 80 01/21/23 07:43 Resp 15 01/21/23 01:33 BP 182/73 01/21/23 07:43 Pulse Ox 94 L 01/21/23 07:43 FiO2 Intake & Output 01/20/23 01/21/23 01/21/23 18:59 06:59 18:59 Intake Total 1200 660 Output Total 700 650 Balance 500 10 Intake: Intake, IV Titration 600 180 Amount Sodium Chloride 0.9% 1, 180 000 ml @ 20 mls/hr IV . Q24H [facility] Rx#:[id number] Sodium Chloride 0.9% 1, 600 000 ml @ 75 mls/hr IV . [id number] [facility] Rx#:[id number] Oral 600 480 Output: Urine 700 650 Other: Voiding Method Indwelling Catheter Indwelling Catheter # Voids 1 - Exam GENERAL: The patient is alert and oriented x3, not in any acute distress. Well developed, well nourished. HEENT: Pupils are round and equally reacting to light. EOMI. No scleral icterus. No conjunctival pallor. Normocephalic, atraumatic. No pharyngeal erythema. No thyromegaly. CARDIOVASCULAR: S1 and S2 present. No murmurs, rubs, or gallops. PULMONARY: Chest is clear to auscultation, no wheezing , no crackles. -ABDOMEN: Soft, nontender, nondistended, normoactive bowel sounds. No palpable organomegaly. Myles catheter in place MUSCULOSKELETAL: No joint swelling or deformity. EXTREMITIES: No cyanosis, clubbing, or pedal edema. NEUROLOGICAL: Gross neurological examination did not reveal any focal deficits. SKIN: No rashes. no petechiae. - Labs CBC & Chem 7: 01/21/23 06:35 01/21/23 06:35 Labs: Abnormal Lab Results - Last 24 Hours (Table) 01/21/23 01/21/23 Range/Units 06:35 06:35 RBC 3.52 L (3.80-5.40) m/uL Hgb 10.6 L (11.4-16.0) gm/dL Hct 32.1 L (34.0-46.0) % Sodium 136 L (137-145) mmol/L Chloride 110 H (98-107) mmol/L Carbon Dioxide 21 L (22-30) mmol/L Creatinine 0.46 L (0.52-1.04) mg/dL Glucose 109 H (74-99) mg/dL Assessment and Plan Assessment: Status post mechanical fall 3 days earlier to hospitalization. Acute fracture of the right superior and inferior pubic rami Lower back pain and right hip pain. Chronic urine incontinence, status post Myles catheter Hypertension. Uncontrolled Hyperlipidemia Hypothyroidism Valvular heart disease Right shoulder osteoarthritis Plan: Continue with pain management. An [place] 7.5 and low dose of Dilaudid to 0.5 every 3 hours. pt is recommended conservative management, follow-up as an outpatient. Patient was advised to follow up with her urologist Dr. garcia Labs and medication were reviewed.. Continue same treatment. Continue with symptomatic treatment. Resume home medication. Monitor labs and vitals. DVT and GI prophylaxis. Further recommendations as per clinical course of the patient DVT prophylaxis: Subcutaneous heparin GI Prophylaxis: Pepcid PT/OT: MARIANNE Prognosis is guarded
[2023-01-21] MEDS: DOCUSATE 100 MG CAP PO SCH ×2 (09:59→20:49)
[2023-01-21] MEDS: ONDANSETRON 4 MG/2 ML VIAL IVP PRN ×2 (15:11→22:23)
[2023-01-21] MEDS: HYDROcodone/APAP 7.5-325MG 1 EACH TAB PO PRN ×2 (15:11→22:21)
[2023-01-21] MEDS: MONTELUKAST 10 MG TAB PO SCH (20:49)
[2023-01-21] MEDS: MELATONIN 5 MG TABLET PO SCH (20:49)
[2023-01-21] MEDS: ATORVASTATIN 40 MG TAB PO SCH (20:49)
[2023-01-21] MEDS ORDERED: SENNOSIDES 8.6 MG TAB PO SCH (21:00)
[2023-01-22] MEDS: ONDANSETRON 4 MG/2 ML VIAL IVP PRN (05:55)
[2023-01-22] MEDS: HYDROcodone/APAP 7.5-325MG 1 EACH TAB PO PRN ×2 (05:56→11:28)
[2023-01-22] MEDS: PANTOPRAZOLE 40 MG TABLET PO SCH (05:57)
[2023-01-22] MEDS: LEVOTHYROXINE 75 MCG TAB PO SCH (05:57)
[2023-01-22] MEDS: SODIUM CHLORIDE 0.9% 1,000 ML IV SCH (07:06)
[2023-01-22] MEDS: DOCUSATE 100 MG CAP PO SCH (09:05)
[2023-01-22] MEDS: hydrALAZINE HCL 25 MG TAB PO SCH (09:05)
[2023-01-22] MEDS: atenoloL 25 MG TAB PO SCH (09:06)
[2023-01-22] MEDS: POTASSIUM CHLORIDE ER 10 MEQ TAB.ER.PRT PO SCH (09:06)
[2023-01-22] MEDS: HEPARIN SODIUM,PORCINE 5,000 UNIT/ML 1 ML VIAL SQ SCH (09:06)
[2023-01-22] MEDS: DULoxetine HCL 20 MG CAPSULE.DR PO SCH (09:06)
[2023-01-22] MEDS: LOSARTAN 50 MG TAB PO SCH (09:06)
[2023-01-22] MEDS ORDERED: HYDROmorphone 0.5 MG/0.5 ML SYRINGE IVP PRN (10:50)
[2023-01-22] MEDS ORDERED: HYDROcodone/APAP 10-325MG 1 EACH TAB PO PRN (10:50)
--- NOTE | 2023-01-22 10:53 | P.PN ---
Subjective Patient is a 82-year-old female with a past medical history of hypertension, hyperlipidemia, valvular heart disease and history of migraine headaches presents to ER status post fall and severe hip pain and back pain. Patient states that she was walking on the new floor with her socks on and suddenly slipped and fell on her back. Came to ER due to persistent pain and also complaining of pain wrapping around her back and abdomen. Patient states that she had a fall about 3 days ago. Was able to walk yesterday but today unable to ambulate and presented to ER.Denied hitting her head. Denies any dysuria or hematuria. No fever no chills. No chest pain or shortness of breath. No nausea vomiting abdominal pain or diarrhea. Denies any recent illnesses. Patient is supposed to get reverse arthroplasty on the right shoulder which she is scheduled sometime this month.. EKG showed sinus rhythm. X-ray hip and pelvis showed acute fracture of the right superior and inferior pubic rami. Consider cross-sectional imaging if there is further concern. No gross evidence of hip fracture. Chronic calcification overlying the left hemisacrum which may be within the pelvis. Chest x-ray showed right hemidiaphragm elevation. Prominent cardiac silhouette is may be due to part to technique. Linear area of atelectatic changes within the right lower lobe. Laboratory data showed WBC 10.1 hemoglobin 13.1 platelets 179 Sodium 140 potassium 3.3 chloride 112 bicarb is 17 BUN 17 and creatinine 0.47 and blood sugar 119 Liver enzymes showed AST 28 ALT 17 and alk phos 139 Urinalysis showed small leukocyte esterase with elevated RBCs and WBCs. 01/20/2023 Patient is currently in the recliner. Still complains of right hip pain and is able to get up and walk. No complaints of chest pain or shortness of breath. Currently on room air. No nausea vomiting abdominal pain or diarrhea. Tolerating oral diet. PT OT was consulted. Laboratory data showed WBC 7.2 hemoglobin 10.4 and platelets 183 Sodium 139 potassium 3.7 chloride 112 bicarb is 23 BUN 17 and creatinine 0.52 and blood sugar is 109 and albumin 2.6. 01/21/2023 This is a pleasant 82 years old female with multiple medical problems, dense initially because of a fall about 3 days prior to hospitalization. She was found to have pelvic fracture and orthopedic team recommended conservative treatment. Currently she is complaining of from right groin pain about 10/10 increased with movement, decreased with pain shot down to 4/10 now and she does not look in distress. Also patient is a known case of significant urinary incontinence, she follow up with Dr. garcia, who saw him about one month ago because she was tired of using diapers of ITS AND COMPLAINED FROM URINARY URGENCY AND INCONTINENCE, SHE CONFIRMS THESE ARE CHRONIC PROBLEMS She denies any worsening urinary symptoms over the last [address] gonzalez was planning to prescribe her a device to help her with urine incontinence but then she fell before this happens. Currently she has a Myles catheter in and she is happy with that. She denies any dysuria. No suprapubic pain or tenderness. No fever, no leukocytosis. She has mild anemia with hemoglobin 11, 10.4, 10.6 today. BMP is unremarkable. Urinalysis is mildly abnormal but no overt infection and patient is asymptomatic. Patient is medically stable for discharge once authorization is obtained for rehab 01/22/2023 Patient is still complains from pain and controlled in her lower back although it's easing down from yesterday. She agrees to decrease the frequency of Dilaudid 0.5 mg from every 3 hours and 2 every 6 hours. We will increase her [place] to 7.5 and 10 mg for moderate and severe pain respectively. We will add lidocaine patch We will at Colace for possible constipation although patient currently denies constipation patient medically stable for discharge pending placement Objective - Vital Signs Vital signs: Vital Signs Temp 98.2 F 01/22/23 07:23 Pulse 76 01/22/23 07:23 Resp 17 01/22/23 07:23 BP 170/72 01/22/23 07:23 Pulse Ox 94 L 01/22/23 07:23 FiO2 Intake & Output 01/21/23 01/22/23 01/22/23 18:59 06:59 18:59 Output Total 800 650 Balance -800 -650 Output: Urine 800 650 Uretheral (Myles) 800 Other: Voiding Method Indwelling Catheter Indwelling Catheter - Exam GENERAL: The patient is alert and oriented x3, not in any acute distress. Well developed, well nourished. HEENT: Pupils are round and equally reacting to light. EOMI. No scleral icterus. No conjunctival pallor. Normocephalic, atraumatic. No pharyngeal erythema. No thyromegaly. CARDIOVASCULAR: S1 and S2 present. No murmurs, rubs, or gallops. PULMONARY: Chest is clear to auscultation, no wheezing , no crackles. -ABDOMEN: Soft, nontender, nondistended, normoactive bowel sounds. No palpable organomegaly. Myles catheter in place MUSCULOSKELETAL: No joint swelling or deformity. EXTREMITIES: No cyanosis, clubbing, or pedal edema. NEUROLOGICAL: Gross neurological examination did not reveal any focal deficits. SKIN: No rashes. no petechiae. - Labs CBC & Chem 7: 01/21/23 06:35 01/21/23 06:35 Assessment and Plan Assessment: Status post mechanical fall 3 days earlier to hospitalization. Acute fracture of the right superior and inferior pubic rami Lower back pain and right hip pain. Chronic urine incontinence, status post Myles catheter Hypertension. Uncontrolled Hyperlipidemia Hypothyroidism Valvular heart disease Right shoulder osteoarthritis Plan: Continue with pain management. An [place] 7.5 and [place] 10 mg and low dose of Dilaudid to 0.5 every 6 hours. And lidocaine patch pt is recommended conservative management, follow-up as an outpatient. Patient was advised to follow up with her urologist Dr. garcia Labs and medication were reviewed.. Continue same treatment. Continue with symptomatic treatment. Resume home medication. Monitor labs and vitals. DVT and GI prophylaxis. Further recommendations as per clinical course of the patient DVT prophylaxis: Subcutaneous heparin GI Prophylaxis: Pepcid PT/OT: MARIANNE Prognosis is guarded,
[2023-01-22] MEDS ORDERED: LIDOCAINE 5% PATCH TOPICAL SCH (11:00)
--- NOTE | 2023-01-22 11:30 | P.DS ---
Providers Date of admission: 01/19/23 02:32 Attending physician: Jennifer Ellison Consults: 01/19/23 02:32 Consult Physician Routine Consulting Provider: Stephen Renteria Consult Reason/Comments: pelvisFx Do you want consulting provider notified?: Yes Primary care physician: Sahara Ge Hospital Course: Diagnoses: Status post mechanical fall 3 days earlier to hospitalization. Acute fracture of the right superior and inferior pubic rami Lower back pain and right hip pain. Chronic urine incontinence, status post Myles catheter Hypertension. Uncontrolled Hyperlipidemia Hypothyroidism Valvular heart disease Right shoulder osteoarthritis Hospital course: Patient is a 82-year-old female with a past medical history of hypertension, hyperlipidemia, valvular heart disease and history of migraine headaches presents to ER status post fall and severe hip pain and back pain. Patient states that she was walking on the new floor with her socks on and suddenly slipped and fell on her back. Came to ER due to persistent pain and also complaining of pain wrapping around her back and abdomen. Patient states that she had a fall about 3 days ago. Was able to walk yesterday but today unable to ambulate and presented to ER.Denied hitting her head. Denies any dysuria or hematuria. X-ray hip and pelvis showed acute fracture of the right superior and inferior pubic rami. Patient evaluated by the orthopedic team and they recommended: No surgical intervention is recommended. Patient may ambulate and weight-bear as tolerated with a walker and assistance. Also patient is a known case of significant urinary incontinence, she follow up with Dr. barnes, who saw him about one month ago because she was tired of using diapers of ITS AND COMPLAINED FROM URINARY URGENCY AND INCONTINENCE, SHE CONFIRMS THESE ARE CHRONIC PROBLEMS She denies any worsening urinary symptoms over the last [address] gonzalez was planning to prescribe her a device to help her with urine incontinence but then she fell before this happens. Currently she has a Myles catheter in and she is happy with that. She denies any dysuria. No suprapubic pain or tenderness. No fever, no leukocytosis. She has mild anemia with hemoglobin 11, 10.4, 10.6 today. BMP is unremarkable. Urinalysis is mildly abnormal but no overt infection and patient is asymptomatic. Patient was cleared for discharge by Orthopedic team Patient is going for ECF for subacute rehab Problems and management plan were discussed with the patient and he verbalized understanding and acceptance Patient was found stable and can be discharged home in guarded prognosis however he needs follow-up as an outpatient. Patient was instructed to follow up with PCP Dr. Ge within one week and patient agrees Patient was instructed to follow up with orthopedic doctor Myra in [address] barnes in 1-2 weeks Physical exam -Gen: patient is a AAOx3, no distress read generally weak CVS: S1-S2, RRR, no murmur Lungs: B/L CTA, no wheezing Abdomen: soft, no distention, no tenderness, positive bowel sounds Extremity: no leg edema or induration Time spent more than 35 minutes Patient Condition at Discharge: Fair Plan - Discharge Summary Discharge Rx Participant: No New Discharge Prescriptions: New Lidocaine 5% Patch [Lidoderm 5% Patch] 1 patch TOPICAL DAILY #7 patch Heparin Sodium,Porcine (1 ml) [Heparin Sodium] 5,000 unit SQ Q12HR each HYDROcodone/APAP 7.5-325MG [[place] 7.5-325] 1 each PO Q6HR PRN 7 Days #20 tab PRN Reason: Mild To Moderate Pain (1 - 6) Sennosides [Senokot] 17.2 mg PO HS PRN #30 tab PRN Reason: Constipation Continue Levothyroxine Sodium [Synthroid] 75 mcg PO DAILY Irbesartan 300 mg PO DAILY Vitamin E (Dl,Tocopheryl Acet) [Vitamin E (400 Iu = 180 mg)] 400 unit PO DAILY Turmeric Root Extract [Turmeric] 1,000 mg PO BID Cholecalciferol (Vitamin D3) [Vitamin D3] 50 mcg PO DAILY hydrALAZINE HCL [Apresoline] 75 mg PO TID Lansoprazole [Prevacid] 15 mg PO DAILY atenoloL [Tenormin] 25 mg PO BID Montelukast [Singulair] 10 mg PO HS Melatonin 10 mg PO HS Glucosam/Niko-Msm1/C/Georges/Bosw [Vazdkxuzoqq-Nzmtqrgeyxp-MYP Tb] 1 tab PO BID Aspirin [Adult Low Dose Aspirin EC] 81 mg PO HS Potassium 99 mg PO DAILY Albuterol Sulfate [Proair Respiclick] 2 puff INHALATION RT-Q4H PRN PRN Reason: Shortness Of Breath Cyanocobalamin (Vitamin B-12) [Vitamin B-12] 1,000 mcg PO DAILY Fexofenadine HCl [Sandra Allergy] 180 mg PO DAILY DULoxetine HCL [Cymbalta] 20 mg PO BID Ubidecarenone [Co Q-10] 300 mg PO DAILY Ferrous Sulfate [Feosol] 325 mg PO WE Atorvastatin [Lipitor] 40 mg PO HS Azelastine HCl [Astelin Nasal Perry] 2 spr EA NOSTRIL BID PRN PRN Reason: Allergy Symptoms Changed Docusate [Colace] 100 mg PO BID #0 Discharge Medication List Irbesartan 300 mg PO DAILY 11/24/13 [History] Levothyroxine Sodium [Synthroid] 75 mcg PO DAILY 11/24/13 [History] Cholecalciferol (Vitamin D3) [Vitamin D3] 50 mcg PO DAILY 01/20/19 [History] Lansoprazole [Prevacid] 15 mg PO DAILY 01/20/19 [History] Melatonin 10 mg PO HS 01/20/19 [History] Montelukast [Singulair] 10 mg PO HS 01/20/19 [History] Turmeric Root Extract [Turmeric] 1,000 mg PO BID 01/20/19 [History] Vitamin E (Dl,Tocopheryl Acet) [Vitamin E (400 Iu = 180 mg)] 400 unit PO DAILY 01/20/19 [History] atenoloL [Tenormin] 25 mg PO BID 01/20/19 [History] hydrALAZINE HCL [Apresoline] 75 mg PO TID 01/20/19 [History] Aspirin [Adult Low Dose Aspirin EC] 81 mg PO HS 02/17/19 [History] Glucosam/Niko-Msm1/C/Georges/Bosw [Amqxyoirfio-Izfszypxhlj-HKW Tb] 1 tab PO BID 02/17/19 [History] Potassium 99 mg PO DAILY 04/22/19 [History] Albuterol Sulfate [Proair Respiclick] 2 puff INHALATION RT-Q4H PRN 12/28/19 [History] Atorvastatin [Lipitor] 40 mg PO HS 01/19/23 [History] Azelastine HCl [Astelin Nasal Perry] 2 spr EA NOSTRIL BID PRN 01/19/23 [History] Cyanocobalamin (Vitamin B-12) [Vitamin B-12] 1,000 mcg PO DAILY 01/19/23 [History] DULoxetine HCL [Cymbalta] 20 mg PO BID 01/19/23 [History] Ferrous Sulfate [Feosol] 325 mg PO WE 01/19/23 [History] Fexofenadine HCl [Sandra Allergy] 180 mg PO DAILY 01/19/23 [History] Ubidecarenone [Co Q-10] 300 mg PO DAILY 01/19/23 [History] Docusate [Colace] 100 mg PO BID #0 01/22/23 [Rx] HYDROcodone/APAP 7.5-325MG [[place] 7.5-325] 1 each PO Q6HR PRN 7 Days #20 tab 01/22/23 [Rx] Heparin Sodium,Porcine (1 ml) [Heparin Sodium] 5,000 unit SQ Q12HR each 01/22/23 [Rx] Lidocaine 5% Patch [Lidoderm 5% Patch] 1 patch TOPICAL DAILY #7 patch 01/22/23 [Rx] Sennosides [Senokot] 17.2 mg PO HS PRN #30 tab 01/22/23 [Rx] Follow up Appointment(s)/Referral(s): Sahara Ge MD [Primary Care Provider] - 1-2 days Parvez Barnes MD [STAFF PHYSICIAN] - 2 Weeks (urine incontinance ) Stephen Renteria MD [Medical Doctor] - 2 Weeks Activity/Diet/Wound Care/Special Instructions: heart healthy diet activity is restricted till you see your doctor Discharge Disposition: TRANSFER TO SNF/ECF
[2023-01-22 12:52] VITALS: BP 156/75; PULSE 69; RESP 16; TEMP 98
== END 2023-01-22 13:55 | DRG 536 ==
LOC: EC 22:12 → 4SSUR 01-19 02:32 → 1SOBS 01-19 12:38 → 4SSUR 01-21 15:40
PROVIDERS: ADMIT Hospitalist; ATTEND Hospitalist
DX: S32.511A Fracture of superior rim of right pubis, initial encounter for closed fracture (principal); D64.9 Anemia, unspecified; N39.41 Urge incontinence; E78.5 Hyperlipidemia, unspecified; I10 Essential (primary) hypertension; E87.6 Hypokalemia; E03.9 Hypothyroidism, unspecified; G89.29 Other chronic pain; M19.011 Primary osteoarthritis, right shoulder; Z79.82 Long term (current) use of aspirin; Z79.890 Hormone replacement therapy; Z79.899 Other long term (current) drug therapy; Z96.653 Presence of artificial knee joint, bilateral; Z88.0 Allergy status to penicillin; Z88.2 Allergy status to sulfonamides; Z88.6 Allergy status to analgesic agent; Z88.4 Allergy status to anesthetic agent; Z88.1 Allergy status to other antibiotic agents; W01.0XXA Fall on same level from slipping, tripping and stumbling without subsequent striking against object, initial encounter; Y92.008 Other place in unspecified non-institutional (private) residence as the place of occurrence of the external cause; Y93.01 Activity, walking, marching and hiking
CPT/HCPCS: 36415; 71045; 72100; 73502; 80048; 80053; 81001; 83735; 84100; 85025; 85610; 85730; 93005; 94760; 96361; 96374; 96375; 96376; 99285

== ENCOUNTER → 2023-05-29 | Outpatient (CLI) | payer MEDICARE ==
--- NOTE | 2023-05-31 17:05 | US ---
EXAMINATION TYPE: US thyroid st tissue head/neck DATE OF EXAM: 05/29/2023 COMPARISON: NONE CLINICAL INDICATION: Female, 82 years old with history of THYROID HEAD AND NEC; Patient takes thyroid medication. GLAND SIZE: Right Lobe: 4.5 x 1.8 x 1.4 cm Overall Parenchyma: Slightly heterogeneous. Left Lobe: 4.1 x 1.2 x 1.5 cm Overall Parenchyma: Slightly heterogeneous. Isthmus Thickness: 0.2 cm NODULES RIGHT: # of nodules measured on right: 1. Additional less than 5 mm nodules seen, not measured. 1. 0.6 X 0.7 x 0.5 cm, mid lateral, solid or almost completely solid, hypoechoic nodule, which is w ider than tall, with smooth margins, without echogenic foci. Prior size: No prior LEFT: # of nodules measured on left: 0. There are some less than 5 mm nodules seen, not measured. ISTHMUS: # of nodules measured in the isthmus: 0 Bilateral neck scanned, no evidence of lymphadenopathy. IMPRESSION: A dominant 7 mm TR4 nodule in the right lobe. 2017 ACR TI-RADS LEVEL: TR-RADS 4 - Moderately Suspicious: Follow if > 1 cm, FNA if > 1.5 cm *Highest TI-RADS level nodule reported
--- NOTE | 2023-05-31 17:09 | US ---
EXAMINATION TYPE: US kidneys/renal and bladder DATE OF EXAM: 05/29/2023 COMPARISON: CT 03/01/2020 CLINICAL INDICATION: Female, 82 years old with history of R311 KIDNEY; EXAM MEASUREMENTS: Right Kidney: 9.3 x 5.3 x 4.7 cm Left Kidney: 9.4 x 4.7 x 4.9 cm Right Kidney: Multiple anechoic areas seen, appearance of probable parapelvic cysts, larger measures: 4.1 x 1.7 x 1.9 cm. Renal pelvis also appears slightly distended. Left Kidney: Anechoic area seen at mid: 1.7 x 1.8 x 1.8 cm. Hyperechoic focus seen with shadowing seen measuring 0.4 x 0.7 x 0.5 cm. Bladder: Appears wnl Bilateral Jets seen: Yes IMPRESSION: 1. Multiple centrally located anechoic areas within the kidneys measuring up to 4.1 cm. These were se en to represent multiple parapelvic cysts when correlated with the patient's 03/01/2020 CT urogram. 2. Possible 7 mm nonobstructive left renal calculus.
== END | disposition home or self-care (01) ==
LOC: RADUSWWP 15:14
PROVIDERS: ATTEND Urology
DX: E04.1 Nontoxic single thyroid nodule (principal); R22.0 Localized swelling, mass and lump, head; R31.1 Benign essential microscopic hematuria
CPT/HCPCS: 76536; 76770

== ENCOUNTER → 2023-05-29 | Outpatient (CLI) | payer MEDICARE | END | disposition home or self-care (01) | LOC: RADUSWWP 15:09 | PROVIDERS: ATTEND Family Medicine | DX: E04.1 Nontoxic single thyroid nodule (principal); R91.1 Solitary pulmonary nodule; N28.1 Cyst of kidney, acquired ==

== ENCOUNTER → 2023-11-05 | Outpatient (CLI) | payer MEDICARE ==
--- NOTE | 2023-11-05 13:40 | CT ---
EXAMINATION TYPE: CT abdomen pelvis wo con CT DLP: 465.4 mGycm, Automated exposure control for dose reduction was used. DATE OF EXAM: 11/05/2023 1:02 PM COMPARISON: CT urogram 03/01/2020, renal ultrasound 05/29/2023 CLINICAL INDICATION:Female, 83 years old with history of N20.0 CALCULUS OF KIDNEY; Bilateral flank pa in x 2 months, more so right flank pain TECHNIQUE: Standard CT of the abdomen and pelvis without IV or oral contrast. Lack of IV or oral co ntrast limits evaluation of solid and hollow organ viscera. Coronal and sagittal reformats were perfo rmed. FINDINGS: LOWER CHEST: Lingular 4 mm pulmonary nodule (series 4, image 10). Right lower lobe linear scarring an d/or atelectasis. Moderate to severe coronary arterial calcifications. Trace pericardial effusion. ABDOMEN LIVER: Stable left hepatic lobe 1.3 cm cyst. GALLBLADDER AND BILE DUCTS: Unremarkable. PANCREAS: Unremarkable. SPLEEN: Unremarkable. ADRENAL GLANDS: Unremarkable. KIDNEYS AND URETERS: Bilateral renal sinus cysts identified. Moderate right hydroureteronephrosis wit h an obstructing 8 x 7 mm calculus within the proximal right ureter just past the ureteropelvic junct ion. Additional 8 x 5 mm calculus identified within the left ureteropelvic junction with minimal hydr onephrosis identified. Nonobstructive left mid renal calculus measuring up to 7 mm. Approximately 3- 4 nonobstructive right renal calculi with largest in the inferior pole measuring up to 1 cm. No addit ional ureteral calculi identified. PELVIS BLADDER: Incompletely distended but grossly unremarkable. REPRODUCTIVE: Unremarkable. ABDOMEN & PELVIS STOMACH AND BOWEL: Small hiatal hernia, duodenum is unremarkable. Sigmoid diverticulosis without evid ence for acute diverticulitis. The appendix is within normal limits. No focal bowel wall thickening o r surrounding inflammatory changes. No evidence of bowel obstruction. PERITONEUM: No evidence of pneumoperitoneum or free fluid. VASCULATURE: Moderate atherosclerotic calcifications are present throughout the abdominal aorta and i ts branches. No evidence of aortic aneurysm. MUSCULOSKELETAL: No acute osseous abnormalities. Similar sclerotic lesions within the left hemisacrum and L5 vertebral body. Mild retrolisthesis of L1 on L2, L3 on L4, and L4 on L5. 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 Moderate multilevel degenerative disc disease and face t arthropathy. Mild S-shaped scoliotic curvature of the thoracolumbar spine. LYMPH NODES: No gross evidence for lymphadenopathy. SOFT TISSUE/ABDOMINAL WALL: Patulous fat filled left inguinal ring. IMPRESSION: 1. Mild right hydronephrosis with an obstructing 8 x 7 mm calculus just below the ureteropelvic junct ion. 2. Minimal left hydronephrosis suggested with obstructing 8 x 5 mm calculus at the ureteropelvic junc tion. Evaluation is limited due to noncontrast imaging and renal sinus cysts. Additional nonobstructi ve bilateral renal calculi. 3. Colonic diverticulosis without evidence for acute diverticulitis. 4. Small hiatal hernia. 5. Lingular 4 mm pulmonary nodule. Lowers patient, no follow-up recommended. In a high-risk patient c onsider optional CT chest in 12 months. 6. Trace pericardial effusion.
== END | disposition home or self-care (01) ==
LOC: RADCTMAIN 12:43
PROVIDERS: ATTEND Urology
DX: I31.39 Other pericardial effusion (noninflammatory) (principal); N13.2 Hydronephrosis with renal and ureteral calculous obstruction; K57.30 Diverticulosis of large intestine without perforation or abscess without bleeding; K44.9 Diaphragmatic hernia without obstruction or gangrene; R91.1 Solitary pulmonary nodule; Z87.442 Personal history of urinary calculi
CPT/HCPCS: 74176

== ENCOUNTER → 2023-11-17 | Outpatient (CLI) | payer MEDICARE ==
--- NOTE | 2023-12-20 00:20 | XR ---
EXAMINATION TYPE: XR KUB DATE OF EXAM: 11/17/2023 COMPARISON: KUB radiograph 12/09/2023, CT abdomen pelvis 11/05/2023 HISTORY: Presurgical TECHNIQUE: Single supine KUB image of the abdomen is obtained FINDINGS: Small bowel demonstrates no evidence for dilatation or air fluid levels. Gas and fecal material is seen in non-distended colon. No convincing evidence for pneumoperitoneum. Left-sided pelvic phleboliths are demonstrated. Unchanged right renal calculi with a 1.4 cm calculus within the proximal right ureter. Unchanged left-sided renal calculi with a 1.3 cm calculus within th e proximal left ureter. The lung bases are clear. The osseous structures are intact. Mild levocurvature of the lumbar spine with apex at L3. Multilevel degenerative disc disease. Advanced osteoarthritic changes of both hips with joint space narrowing, sclerosis, marginal osteophytosis. IMPRESSION: Stable position of bilateral renal calculi from prior CT. There are calculi redemonstrated within the bilateral proximal ureters again.
== END | disposition home or self-care (01) ==
LOC: LABPRL 14:40
PROVIDERS: ATTEND Urology
DX: Z01.818 Encounter for other preprocedural examination (principal); N20.0 Calculus of kidney
CPT/HCPCS: 74018; 82365

== ENCOUNTER 2023-12-09 13:30 | Inpatient (IN) | payer MEDICARE ==
[2023-12-09] MEDS: DEXTROSE 5%-0.45% NACL 1,000 ML IV SCH (18:46)
[2023-12-09] MEDS ORDERED: ALBUTEROL NEBULIZED 2.5 MG/3 ML INHALATION PRN (18:48)
[2023-12-09] MEDS ORDERED: AZELASTINE 137MCG/SPRAY EA NOSTRIL PRN (18:48)
--- NOTE | 2023-12-09 19:33 | XR ---
EXAMINATION TYPE: XR KUB DATE OF EXAM: 12/09/2023 7:18 PM CLINICAL INDICATION:Female, 83 years old with history of Renal calculi; [facility] COMPARISON: CT abdomen 11/05/2023 TECHNIQUE: One radiographic view of the abdomen was obtained. FINDINGS: Bilateral ureteral stents are identified. The bowel gas pattern is nonspecific without dila carlene loops of small or large bowel. There is no evidence for organomegaly or pneumoperitoneum. The os seous structures are intact. Fecal material and gas are demonstrated throughout the colon and rectum. IMPRESSION: 1. Nonspecific bowel gas pattern without radiographic evidence for acute process. 2. Bilateral ureteral stents.
[2023-12-09] MEDS: hydrALAZINE HCL 50 MG TAB PO SCH (19:58)
[2023-12-09] MEDS: ATORVASTATIN 40 MG TAB PO SCH (19:59)
[2023-12-09] MEDS: atenoloL 25 MG TAB PO SCH (19:59)
[2023-12-09] MEDS: ACETAMINOPHEN TAB 325 MG TAB PO PRN (19:59)
[2023-12-09] MEDS: PANTOPRAZOLE 40 MG TABLET PO SCH (19:59)
[2023-12-09] MEDS: MELATONIN 5 MG TABLET PO SCH (19:59)
[2023-12-09] MEDS: DULoxetine HCL 20 MG CAPSULE.DR PO SCH (19:59)
[2023-12-09] MEDS: MONTELUKAST 10 MG TAB PO SCH (19:59)
[2023-12-09 20:01] LABS: Appearance,Urine Clear (Clear); Bacteria,Urine Few /hpf; Bilirubin,Urine Negative (Negative); Blood,Urine Moderate (Negative); Color,Urine Light Yellow; Glucose,Urine (UA) Trace (Negative); Ketones,Urine Negative (Negative); Leukocyte Esterase,Urine Large (Negative); Mucus,Urine Rare /hpf; Nitrite,Urine Negative (Negative); PH, Urine 6.5 (5.0-8.0); Protein,Urine 1+ (Negative); RBC,Urine 97 /hpf (0-5); Specific Gravity,Urine 1.011 (1.001-1.035); Squamous Epithelial Cell,Urine 1 /hpf (0-4); Urobilinogen,Urine <2.0 mg/dL (<2.0); WBC,Urine 66 /hpf (0-5)
--- NOTE | 2023-12-09 22:22 | P.GSHP ---
History of Present Illness H&P Date: 12/09/23 Chief Complaint: Abdominal pain, nausea, and vomiting. The patient is an 83-year-old white female with a history of urolithiasis. She has been treated for Proteus UTIs this year. CT scan showed moderate right hydronephrosis secondary to an 8 mm right proximal ureteral calculus, as well as several small right renal calculi. On the left side, she was found to have a 5 x 8 mm left UPJ calculus along with a 7 mm left midpole renal calculus. It is felt that the recurrent UTIs may be due to the calculi, which may be infected. On November 18, she underwent bilateral ureteroscopy with laser lithotripsy. The right proximal ureteral calculus was fragmented and removed. The urine within the right renal pelvis was cloudy, and therefore a right ureteral stent was placed after removing the proximal ureteral calculus. On the left side, the majority of the calculi were fragmented and removed via stone basketing, but there appeared to be a small ureteral perforation and therefore the procedure was terminated and a ureteral stent was placed. She was scheduled to undergo c ystoscopy with bilateral ureteral stent removal, along with removal of any residual calculi on December 10, 2023. However, today she experienced pain associated with nausea and vomiting and was admitted. - Constitutional Constitutional: Denies chills, Denies fever - Gastrointestinal Gastrointestinal: Reports nausea, Reports vomiting - Genitourinary (Female) Genitourinary: Reports flank pain, Reports kidney stones Past Medical History Past Medical History: Coronary Artery Disease (CAD), Hearing Disorder / Deafness, Hyperlipidemia, Hypertension, Osteoarthritis (OA), Thyroid Disorder Additional Past Medical History / Comment(s): "Leaky heart valve", palpitations, shortness of breath when climbing stairs, hx migraine, Hx IV ABX for UTI Mar 2023. Kidney stones. History of Any Multi-Drug Resistant Organisms: None Reported Past Surgical History: Heart Catheterization With Stent, Orthopedic Surgery Additional Past Surgical History / Comment(s): Bilateral knee surgery, bilateral uretral stents/procedure for kidney stones. Past Anesthesia/Blood Transfusion Reactions: No Reported Reaction Date of Last Stent Placement:: 04/26/2019 Smoking Status: Never smoker - Past Family History Father Family Medical History: Cancer Additional Family Medical History / Comment(s): Colon cancer. Medications and Allergies Home Medications Medication Instructions Recorded Confirmed Type Irbesartan 300 mg PO QAM 11/24/13 12/08/23 History Levothyroxine Sodium [Synthroid] 75 mcg PO QAM 11/24/13 12/08/23 History Lansoprazole [Prevacid] 15 mg PO HS 01/20/19 12/08/23 History Melatonin 10 mg PO HS 01/20/19 12/08/23 History Montelukast [Singulair] 10 mg PO HS 01/20/19 12/08/23 History atenoloL [Tenormin] 25 mg PO BID 01/20/19 12/08/23 History hydrALAZINE HCL [Apresoline] 75 mg PO TID 01/20/19 12/08/23 History Aspirin [Adult Low Dose Aspirin EC] 81 mg PO HS 02/17/19 12/08/23 History Albuterol Sulfate [Proair 2 puff INHALATION RT-Q4H PRN 12/28/19 12/08/23 History Respiclick] Atorvastatin [Lipitor] 40 mg PO HS 01/19/23 12/08/23 History Azelastine HCl [Astelin Nasal 2 spr EA NOSTRIL BID PRN 01/19/23 12/08/23 History Omer] DULoxetine HCL [Cymbalta] 20 mg PO BID 01/19/23 12/08/23 History Ferrous Sulfate [Feosol] 325 mg PO WE 01/19/23 12/08/23 History Fexofenadine HCl [Sandra Allergy] 180 mg PO Q48H 01/19/23 12/08/23 History Ubidecarenone [Co Q-10] 300 mg PO QAM 01/19/23 12/08/23 History Lidocaine 5% Patch [Lidoderm 5% 1 patch TOPICAL DAILY PRN 11/13/23 12/08/23 History Patch] Acetaminophen [Tylenol] 325 - 650 mg PO Q4-6H PRN 12/08/23 12/08/23 History Cetirizine HCl [Zyrtec] 10 mg PO Q48H 12/08/23 12/08/23 History Allergies Allergy/AdvReac Type Severity Reaction Status Date / Time Beef Containing Products Allergy Diarrhea Verified 12/08/23 10:59 Milk Containing Products Allergy Diarrhea Verified 12/08/23 10:59 (Dairy) [Dairy] mold Allergy Dyspnea Verified 12/08/23 10:59 Penicillins Allergy Unknown Verified 12/08/23 10:59 Childhood pollen extracts Allergy Dyspnea Verified 12/08/23 10:59 procaine [From Novocain] Allergy Swelling Verified 12/08/23 10:59 Sulfa (Sulfonamide Allergy Unknown Verified 12/08/23 10:59 Antibiotics) tree and shrub pollen Allergy Dyspnea Verified 12/08/23 10:59 aspirin AdvReac Abdominal Verified 12/08/23 10:59 Pain celecoxib [From Celebrex] AdvReac Dyspnea Verified 12/08/23 10:59 Surgical - Exam Vital Signs Temp Pulse Resp BP Pulse Ox 98.6 F 90 17 187/47 97 12/09/23 18:04 12/09/23 18:04 12/09/23 18:04 12/09/23 18:04 12/09/23 18:04 - General well developed, well nourished, moderate distress - Respiratory normal respiratory effort - Abdomen Abdomen: soft, non tender, no guarding, no rigid, no rebound - Genitourinary normal external genitalia - Psychiatric oriented to time, oriented to person, oriented to place, speech is normal, memory intact Results - Labs Abnormal Lab Results - Last 24 Hours (Table) 12/09/23 Range/Units 19:45 Urine Protein 1+ H (Negative) Urine Glucose (UA) Trace H (Negative) Urine Blood Moderate H (Negative) Ur Leukocyte Esterase Large H (Negative) Urine RBC 97 H (0-5) /hpf Urine WBC 66 H (0-5) /hpf Urine Bacteria Few H (None) /hpf Urine Mucus Rare H (None) /hpf Assessment and Plan (1) Calculus of kidney Current Visit: Yes Status: Acute Code(s): N20.0 - CALCULUS OF KIDNEY SNOMED Code(s): 76938867 Plan: The patient is admitted for IV hydration, along with parenteral analgesics and antiemetics. She is receiving Rocephin for perioperative antibiotic coverage, and will undergo cystoscopy, bilateral ureteral stent removal, bilateral ureteroscopy with removal of residual calculi. She is aware of potential risks, which include anesthesia, bleeding, infection, ureteral injury, and inability to remove all calculi.
[2023-12-10] MEDS: LEVOTHYROXINE 75 MCG TAB PO SCH (06:09)
[2023-12-10] MEDS ORDERED: HYDROmorphone 0.5 MG/0.5 ML SYRINGE IVP PRN (08:06)
[2023-12-10] MEDS ORDERED: ACETAMINOPHEN TAB 325 MG TAB PO PRN (08:40)
[2023-12-10 08:41] LABS: HCT 33.8 % (34.0-46.0); HGB 11.2 gm/dL (11.4-16.0); MCH 28.4 pg (25.0-35.0); MCHC 33.2 g/dL (31.0-37.0); MCV 85.6 fL (80.0-100.0); Mean Platelet Volume 8.4; Platelet Count 282 k/uL (150-450); RBC 3.95 m/uL (3.80-5.40); RDW 15.1 % (11.5-15.5)
[2023-12-10 08:54] LABS: Glucose,Whole Blood 141 mg/dL (70-110)
[2023-12-10] MEDS ORDERED: LORATADINE 10 MG TAB PO SCH (09:00)
[2023-12-10] MEDS: DEXAMETHASONE SOD PHOSPHATE 4 MG/ML 1 ML VIAL IV ONE (09:21)
[2023-12-10] MEDS: ONDANSETRON 4 MG/2 ML VIAL IVP ONE (09:22)
[2023-12-10] MEDS: LORATADINE 10 MG TAB PO SCH (09:28)
[2023-12-10] MEDS: LOSARTAN 50 MG TAB PO SCH (09:28)
[2023-12-10 10:14] LABS: African American GFR (CKD) 55 (>60 ml/min/1.73 sqM); Anion Gap 6 mmol/L; Blood Urea Nitrogen 18 mg/dL (7-17); Calcium 9.2 mg/dL (8.4-10.2); Carbon Dioxide 18 mmol/L (22-30); Chloride 110 mmol/L (98-107); Glucose 154 mg/dL (74-99); Non-African American GFR(CKD) 48 (>60 ml/min/1.73 sqM); Potassium 3.4 mmol/L (3.5-5.1); Sodium 134 mmol/L (137-145)
[2023-12-10] MEDS: ACETAMINOPHEN TAB 325 MG TAB PO PRN (16:15)
[2023-12-10] MEDS: HYDROmorphone 0.5 MG/0.5 ML SYRINGE IVP PRN (16:19)
--- NOTE | 2023-12-10 20:00 | P.PN ---
Subjective Progress Note Date: 12/10/23 Principal diagnosis: UTI, renal calculi The patient was scheduled for surgery today to undergo ureteroscopic removal of renal calculi which are presumed to be infected. She became febrile overnight so her planned surgery was canceled. She is currently afebrile and feeling much better this evening. She reports mild right lower quadrant abdominal pain. Her nausea and vomiting are much improved. Objective - Vital Signs Vital signs: Vital Signs Temp 98.8 F 12/10/23 14:40 Pulse 80 12/10/23 14:40 Resp 17 12/10/23 14:40 BP 130/53 12/10/23 14:40 Pulse Ox 98 12/10/23 14:40 FiO2 Intake & Output 12/10/23 12/10/23 12/11/23 06:59 18:59 06:59 Intake Total 825 Balance 825 Intake: Intake, IV Titration 825 Amount Dextrose 5%-0.45% NaCl 1, 825 000 ml @ 75 mls/hr IV . [id number] [facility] Rx#:[id number] Other: Voiding Method Toilet Toilet # Voids 2 1 - Constitutional General appearance: Present: average body habitus, cooperative, no acute distress - Gastrointestinal Gastrointestinal Comment(s): Soft, non-distended. Mild right lower quadrant tenderness, no guarding or rebound. - Psychiatric Psychiatric: Present: A&O x's 3 - Labs CBC & Chem 7: 12/10/23 08:31 12/10/23 08:32 Labs: Abnormal Lab Results - Last 24 Hours (Table) 12/09/23 12/10/23 12/10/23 Range/Units 19:45 08:31 08:32 WBC 15.0 H (3.8-10.6) k/uL Hgb 11.2 L (11.4-16.0) gm/dL Hct 33.8 L (34.0-46.0) % Sodium 134 L (137-145) mmol/L Potassium 3.4 L (3.5-5.1) mmol/L Chloride 110 H (98-107) mmol/L Carbon Dioxide 18 L (22-30) mmol/L BUN 18 H (7-17) mg/dL Creatinine 1.09 H (0.52-1.04) mg/dL Glucose 154 H (74-99) mg/dL POC Glucose (mg/dL) (70-110) mg/dL Urine Protein 1+ H (Negative) Urine Glucose (UA) Trace H (Negative) Urine Blood Moderate H (Negative) Ur Leukocyte Esterase Large H (Negative) Urine RBC 97 H (0-5) /hpf Urine WBC 66 H (0-5) /hpf Urine Bacteria Few H (None) /hpf Urine Mucus Rare H (None) /hpf 12/10/23 Range/Units 08:53 WBC (3.8-10.6) k/uL Hgb (11.4-16.0) gm/dL Hct (34.0-46.0) % Sodium (137-145) mmol/L Potassium (3.5-5.1) mmol/L Chloride (98-107) mmol/L Carbon Dioxide (22-30) mmol/L BUN (7-17) mg/dL Creatinine (0.52-1.04) mg/dL Glucose (74-99) mg/dL POC Glucose (mg/dL) 141 H (70-110) mg/dL Urine Protein (Negative) Urine Glucose (UA) (Negative) Urine Blood (Negative) Ur Leukocyte Esterase (Negative) Urine RBC (0-5) /hpf Urine WBC (0-5) /hpf Urine Bacteria (None) /hpf Urine Mucus (None) /hpf Assessment and Plan (1) Calculus of kidney Current Visit: Yes Status: Acute Code(s): N20.0 - CALCULUS OF KIDNEY SNOMED Code(s): 90438258 Plan: Continue Rocephin. Await urine and blood culture results.
[2023-12-10] MEDS: LACTATED RINGERS 1,000 ML IV SCH (21:57)
--- NOTE | 2023-12-11 10:16 | P.PN ---
Subjective Progress Note Date: 12/11/23 Principal diagnosis: UTI, renal calculi The patient is currently afebrile but did have a fever overnight. She continues to experience mild right lower quadrant abdominal pain. Her nausea and vomiting are much improved. Objective - Vital Signs Vital signs: Vital Signs Temp 99.3 F 12/11/23 07:39 Pulse 76 12/11/23 07:39 Resp 18 12/11/23 07:39 BP 148/80 12/11/23 07:39 Pulse Ox 97 12/11/23 07:39 FiO2 Intake & Output 12/10/23 12/11/23 12/11/23 18:59 06:59 18:59 Other: Voiding Method Toilet Toilet Toilet # Voids 1 2 1 - Constitutional General appearance: Present: average body habitus, cooperative, mild distress - Gastrointestinal Gastrointestinal Comment(s): Soft, non-distended. Mild right lower quadrant tenderness, no guarding or rebound. - Psychiatric Psychiatric: Present: A&O x's 3 - Labs CBC & Chem 7: 12/10/23 08:31 12/10/23 08:32 Assessment and Plan (1) Calculus of kidney Current Visit: Yes Status: Acute Code(s): N20.0 - CALCULUS OF KIDNEY SNOMED Code(s): 98756507 Plan: Continue Rocephin. Await urine and blood culture results.
--- NOTE | 2023-12-12 10:03 | P.PN ---
Subjective Progress Note Date: 12/12/23 Principal diagnosis: UTI, renal calculi The patient is currently afebrile and feels much better. She currently denies abdominal pain, nausea, and vomiting. Objective - Vital Signs Vital signs: Vital Signs Temp 98.2 F 12/12/23 06:55 Pulse 66 12/12/23 06:55 Resp 18 12/12/23 06:55 BP 167/71 12/12/23 06:55 Pulse Ox 95 12/12/23 06:55 FiO2 Intake & Output 12/11/23 12/12/23 12/12/23 18:59 06:59 18:59 Other: Voiding Method Toilet # Voids 2 3 - Constitutional General appearance: Present: average body habitus, cooperative, no acute distress - Psychiatric Psychiatric: Present: A&O x's 3 - Labs CBC & Chem 7: 12/10/23 08:31 12/10/23 08:32 Labs: Microbiology - Last 24 Hours (Table) 12/10/23 07:30 Blood Culture - Preliminary Blood Assessment and Plan Assessment: Patient is being treated for a presumed Proteus UTI. Blood cultures are negative at 24 hours. (1) Calculus of kidney Current Visit: Yes Status: Acute Code(s): N20.0 - CALCULUS OF KIDNEY SNOMED Code(s): 87062039 (2) Acute pyelonephritis Current Visit: Yes Status: Acute Code(s): N10 - ACUTE PYELONEPHRITIS SNOMED Code(s): 81278548 Plan: Continue Rocephin. Await urine and blood culture results.
--- NOTE | 2023-12-13 11:23 | P.PN ---
Subjective Progress Note Date: 12/13/23 Principal diagnosis: UTI, renal calculi The patient is currently afebrile and continues to feel much better. She currently denies abdominal pain, nausea, and vomiting. Objective - Vital Signs Vital signs: Vital Signs Temp 98.1 F 12/13/23 06:51 Pulse 65 12/13/23 06:51 Resp 17 12/13/23 06:51 BP 171/66 12/13/23 06:51 Pulse Ox 97 12/13/23 06:51 FiO2 Intake & Output 12/12/23 12/13/23 12/13/23 18:59 06:59 18:59 Intake Total 900 Balance 900 Intake: Intake, IV Titration 900 Amount Dextrose 5%-0.45% NaCl 1, 900 000 ml @ 75 mls/hr IV . [id number] [facility] Rx#:[id number] Other: Voiding Method Toilet Toilet # Voids 3 1 1 - Constitutional General appearance: Present: average body habitus, cooperative, no acute distress - Psychiatric Psychiatric: Present: A&O x's 3 - Labs CBC & Chem 7: 12/10/23 08:31 12/10/23 08:32 Labs: Microbiology - Last 24 Hours (Table) 12/09/23 19:45 Urine Culture - Final Urine,Clean Catch Proteus mirabilis 12/10/23 07:30 Blood Culture - Preliminary Blood Assessment and Plan Assessment: Patient is being treated for a Proteus UTI. Blood cultures are negative at 48 hours. (1) Calculus of kidney Current Visit: Yes Status: Acute Code(s): N20.0 - CALCULUS OF KIDNEY SNOMED Code(s): 17114036 (2) Acute pyelonephritis Current Visit: Yes Status: Acute Code(s): N10 - ACUTE PYELONEPHRITIS SNOMED Code(s): 78325754 Plan: Continue Rocephin. Arrangements will be made for the patient to be discharged home on IV ceftriaxone. Unfortunately, this likely cannot be done until December 15, 2023. I will attempt to perform bilateral ureteroscopic removal of her residual calculi later this week, while on antibiotics.
[2023-12-13 16:08] LABS: Glucose,Whole Blood 104 mg/dL (70-110)
--- NOTE | 2023-12-14 09:43 | P.PN ---
Subjective Progress Note Date: 12/14/23 Principal diagnosis: UTI, renal calculi The patient is currently afebrile and continues to feel much better. She currently denies abdominal pain, nausea, and vomiting. Her only complaint is a sore throat. Objective - Vital Signs Vital signs: Vital Signs Temp 98.2 F 12/14/23 07:11 Pulse 68 12/14/23 07:11 Resp 16 12/14/23 07:11 BP 165/72 12/14/23 07:11 Pulse Ox 97 12/14/23 07:11 FiO2 Intake & Output 12/13/23 12/14/23 12/14/23 18:59 06:59 18:59 Other: Voiding Method Toilet # Voids 1 4 - Constitutional General appearance: Present: average body habitus, cooperative, no acute distress - Gastrointestinal Gastrointestinal Comment(s): Soft, non-distended, non-tender. - Psychiatric Psychiatric: Present: A&O x's 3 - Labs CBC & Chem 7: 12/10/23 08:31 12/10/23 08:32 Labs: Microbiology - Last 24 Hours (Table) 12/10/23 07:30 Blood Culture - Preliminary Blood 12/09/23 19:45 Urine Culture - Final Urine,Clean Catch Proteus mirabilis Assessment and Plan Assessment: Patient is being treated for a Proteus UTI. Blood cultures are negative at 72 hours. (1) Calculus of kidney Current Visit: Yes Status: Acute Code(s): N20.0 - CALCULUS OF KIDNEY SNOMED Code(s): 94955376 (2) Acute pyelonephritis Current Visit: Yes Status: Acute Code(s): N10 - ACUTE PYELONEPHRITIS SNOMED Code(s): 67951012 Plan: Continue Rocephin. I am attempting to schedule ureteroscopic removal of her bilateral renal calculi tomorrow, and arrangements will then be made for her to be discharged home on IV ceftriaxone.
[2023-12-14] MEDS: BENZOCAINE/MENTHOL LOZENG 1 EACH LOZENGE MUCOUS MEM PRN (10:00)
--- NOTE | 2023-12-15 10:56 | CDI ---
Documentation Clarification Form Date: 12/15/2023 10:29:53 AM From: Delores Cronin RN, CCDS Phone: [phone] Admit Date: 12/11/2023 10:23:00 AM Patient Name: Delores Hyatt Visit Number: [id number] Discharge Date: ATTENTION: The Clinical Documentation Specialists (CDI) and [facility] Coding Staff appreciate your assistance in clarifying documentation. Please respond to the clarification below the line at the bottom and electronically sign. The CDI & [facility] Coding staff will review the response and follow-up if needed. Please note: Queries are made part of the Legal Health Record. If you have any questions, please contact the author of this message via ITS. Doctor/Provider: Parvez Barnes Your patient had planned surgery canceled because she became febrile overnight. She has a renal calculus which are presumed to be infected. Based on this information and the findings below, is there an additional diagnosis that is clinically appropriate for this patient? Patient history/risk factors: Recurrent UTIs, Hydronephrosis, Renal calculus Clinical Indicators: 83-year-old white female with a history of urolithiasis. December 10, 2023.However, today she experienced pain associated with nausea and vomiting and was admitted. 12/08 UA: Urine Blood Moderate, Ur Leukocyte Esterase Large, Urine Bacteria Few, Urine WBC 66 12/08 Urine Culture Final: Proteus Mirabilis 12/09 VS: 149/76 104 16 100.2 97% RA, 166/73 100 101.4 95% RA 12/09 Labs: WBC 15.0, NA+ 134, K+ 3.4 BUN 18, CR 1.09 Treatment: Rocephin 2 GM IVPB Once 12/08 Rocephin 2 gm IVPB Once 12/09 Rocephin 2 gm IVPB Q 24 HR 12/10 Blood culture and urine culture Is there an additional diagnosis that is clinically appropriate for this patient? [X ] Sepsis due to Acute pyelonephritis present on admission [ ] No additional diagnosis/Not clinically significant [ ] Unable to determine [ ] Other, please specify (Template Last Reviewed: May 2022) MTDD
[2023-12-15 13:39] LABS: Glucose,Whole Blood 112 mg/dL (70-110)
[2023-12-15] MEDS: ONDANSETRON 4 MG/2 ML VIAL IVP PRN (13:47)
[2023-12-15] MEDS: hydrALAZINE HCL 20 MG/ML 1 ML VIAL IVP STA ×2 (14:10→15:26)
[2023-12-15] MEDS: LACTATED RINGERS 1,000 ML BAG IV STA (14:10)
[2023-12-15] MEDS: LACTATED RINGERS 1,000 ML IV ONE (14:11)
[2023-12-15] MEDS: hydrALAZINE HCL 20 MG/ML 1 ML VIAL IVP ONE (14:40)
[2023-12-15 15:03] LABS: ALT 28 U/L (4-34); AST 26 U/L (14-36); African American GFR (CKD) 67 (>60 ml/min/1.73 sqM); Albumin 2.8 g/dL (3.5-5.0); Alkaline Phosphatase 250 U/L (38-126); Anion Gap 5 mmol/L; Blood Urea Nitrogen 9 mg/dL (7-17); Calcium 9.3 mg/dL (8.4-10.2); Carbon Dioxide 23 mmol/L (22-30); Chloride 113 mmol/L (98-107); Globulin 2.7 g/dL; Glucose 116 mg/dL (74-99); Non-African American GFR(CKD) 58 (>60 ml/min/1.73 sqM); Potassium 3.3 mmol/L (3.5-5.1); Sodium 141 mmol/L (137-145); Total Bilirubin 0.5 mg/dL (0.2-1.3); Total Protein 5.5 g/dL (6.3-8.2)
[2023-12-15] MEDS: MIDAZOLAM 2 MG/2 ML VIAL IV ONE (15:15)
[2023-12-15] MEDS: fentaNYL (PF) 50 MCG/ML 2 ML AMP IVP PRN (15:16)
--- NOTE | 2023-12-15 15:52 | P.PN ---
Subjective Progress Note Date: 12/15/23 Principal diagnosis: UTI, renal calculi The patient is currently afebrile and continues to feel much better. She currently denies abdominal pain, nausea, and vomiting. She was scheduled to undergo cystoscopy, bilateral ureteral stent removal, ureteroscopy with laser lithotripsy today. Unfortunately, the procedure needed to be canceled because of uncontrolled hypertension which has persisted despite hydralazine, fentanyl, and Ativan. Objective - Vital Signs Vital signs: Vital Signs Temp 97.2 F L 12/15/23 13:31 Pulse 69 12/15/23 15:40 Resp 16 12/15/23 15:40 BP 207/89 12/15/23 15:40 Pulse Ox 100 12/15/23 15:40 FiO2 Intake & Output 12/14/23 12/15/23 12/15/23 18:59 06:59 18:59 Intake Total 900 Balance 900 Intake: Intake, IV Titration 900 Amount Dextrose 5%-0.45% NaCl 1, 900 000 ml @ 75 mls/hr IV . [id number] [facility] Rx#:[id number] Other: Voiding Method Toilet Toilet Toilet # Voids 2 - Constitutional General appearance: Present: average body habitus, cooperative, no acute distress - Psychiatric Psychiatric: Present: A&O x's 3 - Labs CBC & Chem 7: 12/10/23 08:31 12/15/23 14:24 Labs: Abnormal Lab Results - Last 24 Hours (Table) 12/15/23 12/15/23 Range/Units 13:37 14:24 Potassium 3.3 L (3.5-5.1) mmol/L Chloride 113 H (98-107) mmol/L Glucose 116 H (74-99) mg/dL POC Glucose (mg/dL) 112 H (70-110) mg/dL Alkaline Phosphatase 250 H (38-126) U/L Total Protein 5.5 L (6.3-8.2) g/dL Albumin 2.8 L (3.5-5.0) g/dL Assessment and Plan Assessment: Patient is being treated for a Proteus UTI. Blood cultures are negative at 72 hours. (1) Calculus of kidney Current Visit: Yes Status: Acute Code(s): N20.0 - CALCULUS OF KIDNEY SNOMED Code(s): 60260003 (2) Acute pyelonephritis Current Visit: Yes Status: Acute Code(s): N10 - ACUTE PYELONEPHRITIS SNOMED Code(s): 19960146 Plan: Continue Rocephin. As stated, it was necessary to cancel ureteroscopic removal of her bilateral renal calculi. She has an appointment to see Dr. Beauchamp on December 16, so I have asked that cardiology see her regarding her hypertension. I am hopeful that she can be discharged home tomorrow on IV Rocephin, and ar rangements will be made to reschedule the procedure hopefully later this week. Time with Patient: Greater than 30
[2023-12-15] MEDS ORDERED: Potassium Replacement Protocol 1 EACH MISC MISCELLANE PRN (17:24)
[2023-12-15] MEDS: hydrALAZINE HCL 50 MG TAB PO SCH (17:33)
[2023-12-15] MEDS: POTASSIUM CHLORIDE ER 20 MEQ TAB.ER PO STA (17:33)
[2023-12-15] MEDS: VALSARTAN 160 MG TAB PO SCH (17:59)
[2023-12-16 08:24] LABS: African American GFR (CKD) 47 (>60 ml/min/1.73 sqM); Anion Gap 7 mmol/L; Blood Urea Nitrogen 12 mg/dL (7-17); Calcium 9.4 mg/dL (8.4-10.2); Carbon Dioxide 21 mmol/L (22-30); Chloride 112 mmol/L (98-107); Glucose 104 mg/dL (74-99); Non-African American GFR(CKD) 41 (>60 ml/min/1.73 sqM); Potassium 3.8 mmol/L (3.5-5.1); Sodium 140 mmol/L (137-145)
[2023-12-16] MEDS: carvediloL 6.25 MG TAB PO SCH (09:33)
[2023-12-16] MEDS: VALSARTAN 160 MG TAB PO SCH (09:33)
--- NOTE | 2023-12-16 11:05 | P.CRDCN ---
History of Present Illness History of present illness: HISTORY OF PRESENT ILLNESS: This is a 83-year-old female with a past medical history significant for hypertension, hyperlipidemia, and CAD with previous stenting. Patient follows in the office with Dr. Beauchamp. We have been asked to see the patient in consultation for hypertension. Patient examined at the bedside. Patient is admitted to the hospital secondary to renal calculi. Patient was supposed to undergo cystoscopy, bilateral ureteral stent removal, and ureteroscopy with laser lit hotripsy. However this was canceled due to patient's blood pressure being uncontrolled. The patient takes Irbesartan at home which the hospital does not carry. This was treated for valsartan per pharmacy. Patient's blood pressures were greater than 200 systolic. Patient has since been changed to valsartan 320 mg daily. Patient denies any chest pain or pressure. She denies any shortness of breath. Blood pressure this morning 164/78. REVIEW OF SYSTEMS: At the time of my exam: CONSTITUTIONAL: Denies fever or chills. HEENT: Denies blurred vision, vision changes, or eye pain. Denies hemoptysis CARDIOVASCULAR: Denies chest pain. Denies orthopnea. Denies PND. Denies palpitations RESPIRATORY: Denies shortness of breath. GASTROINTESTINAL: Denies abdominal pain. Denies nausea or vomiting. HEMATOLOGIC: Denies bleeding disorders. GENITOURINARY: Denies any blood in urine. SKIN: Denies pruitis. Denies rash. PHYSICAL EXAM: VITAL SIGNS: Reviewed. GENERAL: Well-developed in no acute distress. HEENT: Head is normocephalic. Pupils are equal, round. Sclerae anicteric. Mucous membranes of the mouth are moist. Neck supple. No JVD or thyromegaly LUNGS: Respirations even and unlabored. Lungs essentially clear to auscultation bilaterally. HEART: Regular rate and rhythm. S1 and S2 heard. ABDOMEN: Soft. Nondistended. Nontender. EXTREMITIES: Normal range of motion. No clubbing or cyanosis. Peripheral pulses intact. No lower extremity edema NEUROLOGIC: Awake and alert. Oriented x 3. ASSESSMENT: UTI Renal calculi Hypertensive urgency CAD with previous stenting to the circumflex and known intermediate disease involving the LAD History of hypertension History of hyperlipidemia PLAN: Discontinue atenolol Add carvedilol 6.25 mg twice a day Change valsartan to 320 mg daily Hydralazine has been increased to 100 mg 3 times a day Monitor BP Patient is cleared from cardiac standpoint to undergo procedure with urology Further recommendations pending patient course Nurse practitioner note has been reviewed by physician. Signing provider agrees with the documented findings, assessment, and plan of care documented by SOCIAL SECURITY [employer]ENEFITS INTERVIEWER as a scribe. Past Medical History Past Medical History: Coronary Artery Disease (CAD), Hearing Disorder / Deafness, Hyperlipidemia, Hypertension, Osteoarthritis (OA), Thyroid Disorder Additional Past Medical History / Comment(s): "Leaky heart valve", palpitations, shortness of breath when climbing stairs, hx migraine, Hx IV ABX for UTI Mar 2023. Kidney stones. History of Any Multi-Drug Resistant Organisms: None Reported Past Surgical History: Heart Catheterization With Stent, Orthopedic Surgery Additional Past Surgical History / Comment(s): Bilateral knee surgery, bilateral uretral stents/procedure for kidney stones. Past Anesthesia/Blood Transfusion Reactions: No Reported Reaction Date of Last Stent Placement:: 04/26/2019 Smoking Status: Never smoker - Past Family History Father Family Medical History: Cancer Additional Family Medical History / Comment(s): Colon cancer. Medications and Allergies Home Medications Medication Instructions Recorded Confirmed Type Irbesartan 300 mg PO QAM 11/24/13 12/08/23 History Levothyroxine Sodium [Synthroid] 75 mcg PO QAM 11/24/13 12/08/23 History Lansoprazole [Prevacid] 15 mg PO HS 01/20/19 12/08/23 History Melatonin 10 mg PO HS 01/20/19 12/08/23 History Montelukast [Singulair] 10 mg PO HS 01/20/19 12/08/23 History atenoloL [Tenormin] 25 mg PO BID 01/20/19 12/08/23 History hydrALAZINE HCL [Apresoline] 75 mg PO TID 01/20/19 12/08/23 History Aspirin [Adult Low Dose Aspirin EC] 81 mg PO HS 02/17/19 12/08/23 History Albuterol Sulfate [Proair 2 puff INHALATION RT-Q4H PRN 12/28/19 12/08/23 History Respiclick] Atorvastatin [Lipitor] 40 mg PO HS 01/19/23 12/08/23 History Azelastine HCl [Astelin Nasal 2 spr EA NOSTRIL BID PRN 01/19/23 12/08/23 History Holden] DULoxetine HCL [Cymbalta] 20 mg PO BID 01/19/23 12/08/23 History Ferrous Sulfate [Feosol] 325 mg PO WE 01/19/23 12/08/23 History Fexofenadine HCl [Sandra Allergy] 180 mg PO Q48H 01/19/23 12/08/23 History Ubidecarenone [Co Q-10] 300 mg PO QAM 01/19/23 12/08/23 History Lidocaine 5% Patch [Lidoderm 5% 1 patch TOPICAL DAILY PRN 11/13/23 12/08/23 History Patch] Acetaminophen [Tylenol] 325 - 650 mg PO Q4-6H PRN 12/08/23 12/08/23 History Cetirizine HCl [Zyrtec] 10 mg PO Q48H 12/08/23 12/08/23 History Allergies Allergy/AdvReac Type Severity Reaction Status Date / Time Beef Containing Products Allergy Diarrhea Verified 12/15/23 14:12 Milk Containing Products Allergy Diarrhea Verified 12/15/23 14:12 (Dairy) [Dairy] mold Allergy Dyspnea Verified 12/15/23 14:12 Penicillins Allergy Unknown Verified 12/15/23 14:12 Childhood pollen extracts Allergy Dyspnea Verified 12/15/23 14:12 procaine [From Novocain] Allergy Swelling Verified 12/15/23 14:12 Sulfa (Sulfonamide Allergy Unknown Verified 12/15/23 14:12 Antibiotics) tree and shrub pollen Allergy Dyspnea Verified 12/15/23 14:12 aspirin AdvReac Abdominal Verified 12/15/23 14:12 Pain celecoxib [From Celebrex] AdvReac Dyspnea Verified 12/15/23 14:12 Physical Exam Vitals: Vital Signs Temp Pulse Resp BP BP Pulse Ox 12/16/23 07:28 97.8 F 68 17 174/78 164/78 99 12/16/23 03:20 98.4 F 72 18 149/66 97 12/15/23 23:23 98.6 F 78 19 179/77 97 12/15/23 20:00 98.1 F 71 19 180/76 94 L 12/15/23 17:37 98.4 F 73 16 192/79 94 L 12/15/23 17:07 65 16 198/82 97 12/15/23 16:45 64 16 228/88 96 12/15/23 16:28 77 16 206/87 97 12/15/23 16:00 71 15 171/84 98 12/15/23 15:40 69 16 207/89 100 12/15/23 15:23 68 16 190/81 100 12/15/23 15:10 70 16 205/88 97 12/15/23 14:50 74 16 212/90 95 12/15/23 14:30 63 16 232/101 98 12/15/23 14:08 66 16 212/93 97 12/15/23 14:00 62 16 210/86 95 12/15/23 13:32 69 16 228/98 98 12/15/23 13:31 97.2 F L Intake and Output 12/15/23 12/16/23 12/16/23 22:59 06:59 14:59 Other: Voiding Method Toilet Toilet Toilet # Voids 1 1 Results 12/10/23 08:31 12/16/23 06:49 Cardiac Enzymes 12/15/23 Range/Units 14:24 AST 26 (14-36) U/L Comprehensive Metabolic Panel 12/15/23 12/16/23 Range/Units 14:24 06:49 Sodium 141 140 (137-145) mmol/L Potassium 3.3 L 3.8 (3.5-5.1) mmol/L Chloride 113 H 112 H (98-107) mmol/L Carbon Dioxide 23 21 L (22-30) mmol/L BUN 9 12 (7-17) mg/dL Creatinine 0.92 1.24 H (0.52-1.04) mg/dL Glucose 116 H 104 H (74-99) mg/dL Calcium 9.3 9.4 (8.4-10.2) mg/dL AST 26 (14-36) U/L ALT 28 (4-34) U/L Alkaline Phosphatase 250 H (38-126) U/L Total Protein 5.5 L (6.3-8.2) g/dL Albumin 2.8 L (3.5-5.0) g/dL Current Medications Generic Name Dose Route Start Last Admin Trade Name Freq PRN Reason Stop Dose Admin Acetaminophen 650 mg 12/10/23 08:41 12/14/23 10:04 Acetaminophen Tab 325 Mg Tab PO 650 mg Q4HR PRN Administration Fever and/ or Mild Pain Albuterol Sulfate 2.5 mg 12/09/23 18:48 Albuterol Nebulized 2.5 Mg/3 Ml INHALATION RT-Q4H PRN Shortness Of Breath Atorvastatin Calcium 40 mg 12/09/23 21:00 12/15/23 20:03 Atorvastatin 40 Mg Tab PO 40 mg HS AIMEE Administration Azelastine HCl 2 spray 12/09/23 18:48 Azelastine 137mcg/Holden EA NOSTRIL BID PRN Allergy Symptoms Benzocaine/Menthol 1 each 12/14/23 09:41 12/14/23 10:00 Benzocaine/Menthol Lozeng 1 Each Lozenge MUCOUS MEM 1 each Q4HR PRN Administration Sore Throat Carvedilol 6.25 mg 12/16/23 08:45 12/16/23 09:33 Carvedilol 6.25 Mg Tab PO 6.25 mg BID-W/MEALS AIMEE Administration Duloxetine HCl 20 mg 12/09/23 21:00 12/16/23 10:41 Duloxetine Hcl 20 Mg Capsule.Dr PO 20 mg BID AIMEE Administration Ferrous Sulfate 325 mg 12/16/23 12:30 Ferrous Sulfate 325 Mg Tab PO We@1230 AIMEE Hydralazine HCl 100 mg 12/15/23 17:30 12/16/23 09:33 Hydralazine Hcl 50 Mg Tab PO 100 mg TID AIMEE Administration Hydromorphone HCl 0.5 mg 12/09/23 18:06 12/15/23 09:14 Hydromorphone 0.5 Mg/0.5 Ml Syringe IVP 0.5 mg Q2HR PRN Administration Severe Pain (Scale 7 to 10) Dextrose/Sodium Chloride 1,000 mls @ 40 mls/hr 12/09/23 18:15 12/15/23 17:32 Dextrose 5%-1/2ns Iv Soln IV 40 mls/hr .Q24H AIMEE Administration Ceftriaxone Sodium 2 gm/ 50 mls @ 100 mls/hr 12/11/23 09:00 12/16/23 09:33 Sodium Chloride IVPB 100 mls/hr Q24HR AIMEE Administration Protocol Levothyroxine Sodium 75 mcg 12/10/23 06:30 12/16/23 06:10 Levothyroxine 75 Mcg Tab PO 75 mcg 0630 AIMEE Administration Loratadine 10 mg 12/10/23 09:00 12/16/23 09:34 Loratadine 10 Mg Tab PO 10 mg DAILY AIMEE Administration Melatonin 10 mg 12/09/23 21:00 12/15/23 20:03 Melatonin 5 Mg Tablet PO 10 mg HS AIMEE Administration Miscellaneous Information 1 each 12/15/23 17:24 Potassium Replacement Protocol 1 Each Misc MISCELLANE DAILY PRN Per Protocol Protocol Montelukast Sodium 10 mg 12/09/23 21:00 12/15/23 20:03 Montelukast 10 Mg Tab PO 10 mg HS AIMEE Administration Ondansetron HCl 4 mg 12/09/23 18:11 12/15/23 23:03 Ondansetron 4 Mg/2 Ml Vial IVP 4 mg Q6HR PRN Administration Nausea And Vomiting Pantoprazole Sodium 40 mg 12/09/23 21:00 12/15/23 20:03 Pantoprazole 40 Mg Tablet PO 40 mg HS AIMEE Administration Valsartan 320 mg 12/16/23 09:00 12/16/23 09:33 Valsartan 160 Mg Tab PO 320 mg DAILY AIMEE Administration Intake and Output 12/15/23 12/16/23 12/16/23 22:59 06:59 14:59 Other: Voiding Method Toilet Toilet Toilet # Voids 1 1 12/10/23 08:31 12/16/23 06:49
[2023-12-16] MEDS: FERROUS SULFATE 325 MG TAB PO SCH (11:36)
--- NOTE | 2023-12-16 19:45 | P.PN ---
Subjective Progress Note Date: 12/16/23 Underwent attempted bilateral ureteroscopy with holmium laser, Case was canceled secondary to uncontrolled hyperattention. At this point she denies any flank pain or gross hematuria Objective - Vital Signs Vital signs: Vital Signs Temp 97.3 F L 12/16/23 12:00 Pulse 74 12/16/23 16:20 Resp 17 12/16/23 16:20 BP 193/73 12/16/23 16:20 Pulse Ox 97 12/16/23 16:20 FiO2 Intake & Output 12/16/23 12/16/23 12/17/23 06:59 18:59 06:59 Intake Total 118 Balance 118 Intake: Oral 118 Other: Voiding Method Toilet Toilet # Voids 1 2 1 - Labs CBC & Chem 7: 12/10/23 08:31 12/16/23 06:49 Labs: Abnormal Lab Results - Last 24 Hours (Table) 12/16/23 Range/Units 06:49 Chloride 112 H (98-107) mmol/L Carbon Dioxide 21 L (22-30) mmol/L Creatinine 1.24 H (0.52-1.04) mg/dL Glucose 104 H (74-99) mg/dL Microbiology - Last 24 Hours (Table) 12/10/23 07:30 Blood Culture - Final Blood Assessment and Plan Assessment: 83-year-old female with history of bilateral stones, plan was to proceed with bilateral ureteroscopy with holmium laser yesterday Case was canceled due to uncontrolled high blood pressure, she was evaluated by cardiology today and was cleared for surgery for tomorrow -N.p.o. past midnight -OR tomorrow for bilateral ureteroscopy, holmium laser to the previously and stent removal
[2023-12-16] MEDS: LACTATED RINGERS 1,000 ML IV SCH (20:23)
[2023-12-17 06:59] LABS: HCT 31.3 % (34.0-46.0); Hypochromasia Slight; MCH 27.3 pg (25.0-35.0); MCHC 31.8 g/dL (31.0-37.0); MCV 85.7 fL (80.0-100.0); Platelet Count 346 k/uL (150-450); RBC 3.65 m/uL (3.80-5.40); RDW 14.8 % (11.5-15.5); WBC 9.6 k/uL (3.8-10.6)
[2023-12-17 07:07] LABS: African American GFR (CKD) 53 (>60 ml/min/1.73 sqM); Anion Gap 6 mmol/L; Blood Urea Nitrogen 11 mg/dL (7-17); Calcium 9.1 mg/dL (8.4-10.2); Carbon Dioxide 22 mmol/L (22-30); Chloride 110 mmol/L (98-107); Glucose 102 mg/dL (74-99); Non-African American GFR(CKD) 46 (>60 ml/min/1.73 sqM); Potassium 3.4 mmol/L (3.5-5.1); Sodium 138 mmol/L (137-145)
[2023-12-17] MEDS: carvediloL 6.25 MG TAB PO STA (09:29)
--- NOTE | 2023-12-17 12:01 | P.PN ---
Subjective HISTORY OF PRESENT ILLNESS: This is a 83-year-old female with a past medical history significant for hypertension, hyperlipidemia, and CAD with previous stenting. Patient follows in the office with Dr. Beauchamp. We have been asked to see the patient in consultation for hypertension. Patient examined at the bedside. Patient is admitted to the hospital secondary to renal calculi. Patient was supposed to undergo cystoscopy, bilateral ureteral stent removal, and ureteroscopy with laser lithotripsy. However this was canceled due to patient's blood pressure being uncontrolled. The patient takes Irbesartan at home which the hospital does not carry. This was treated for valsartan per pharmacy. Patient's blood pressures were greater than 200 systolic. Patient has since been changed to valsartan 320 mg daily. Patient denies any chest pain or pressure. She denies any shortness of breath. Blood pressure this morning 164/78. 12/17/2023 Patient currently denies chest pain or pressure. She denies shortness of breath. Systolic blood pressure today [id number]. PHYSICAL EXAM: VITAL SIGNS: Reviewed. GENERAL: Well-developed in no acute distress. HEENT: Head is normocephalic. Pupils are equal, round. Sclerae anicteric. Mucous membranes of the mouth are moist. Neck supple. No JVD or thyromegaly LUNGS: Respirations even and unlabored. Lungs essentially clear to auscultation bilaterally. HEART: Regular rate and rhythm. S1 and S2 heard. ABDOMEN: Soft. Nondistended. Nontender. EXTREMITIES: Normal range of motion. No clubbing or cyanosis. Peripheral pulses intact. No lower extremity edema NEUROLOGIC: Awake and alert. Oriented x 3. ASSESSMENT: UTI Renal calculi Hypertensive urgency CAD with previous stenting to the circumflex and known intermediate disease involving the LAD History of hypertension History of hyperlipidemia PLAN: Continue current cardiac medications Increase carvedilol to 12.5 mg twice a day Monitor BP Patient is cleared from cardiac standpoint to undergo procedure with urology Further recommendations pending patient course Nurse practitioner note has been reviewed by physician. Signing provider agrees with the documented findings, assessment, and plan of care documented by MANAGER UTILITY as a scribe. Objective - Vital Signs Vital signs: Vital Signs Temp 98 F 12/17/23 11:33 Pulse 76 12/17/23 11:33 Resp 20 12/17/23 11:33 BP 187/77 12/17/23 11:33 Pulse Ox 96 12/17/23 11:33 FiO2 Intake & Output 12/16/23 12/17/23 12/17/23 18:59 06:59 18:59 Intake Total 118 Balance 118 Weight 64 kg Intake: Oral 118 Other: Voiding Method Toilet Toilet # Voids 2 1 - Labs CBC & Chem 7: 12/17/23 06:16 12/17/23 06:16 Labs: Abnormal Lab Results - Last 24 Hours (Table) 12/17/23 12/17/23 Range/Units 06:16 06:16 RBC 3.65 L (3.80-5.40) m/uL Hgb 10.0 L (11.4-16.0) gm/dL Hct 31.3 L (34.0-46.0) % Potassium 3.4 L (3.5-5.1) mmol/L Chloride 110 H (98-107) mmol/L Creatinine 1.12 H (0.52-1.04) mg/dL Glucose 102 H (74-99) mg/dL
[2023-12-17] MEDS: IV FLUID CONTINUATION 1,000 ML IV ONE ×2 (14:41→19:02)
[2023-12-17] MEDS: LABETALOL SYRINGE 5 MG/ML (4 ML SYR) IVP STA (14:59)
[2023-12-17] MEDS: MIDAZOLAM 2 MG/2 ML VIAL IV ONE (15:03)
[2023-12-17] MEDS: hydrALAZINE HCL 20 MG/ML 1 ML VIAL IVP PRN (15:14)
[2023-12-17] MEDS: DEXAMETHASONE SOD PHOSPHATE 4 MG/ML 1 ML VIAL IV ONE (15:34)
[2023-12-17] MEDS ORDERED: LIDOCAINE 1% INJ 10MG/ML (20 ML MDV) ONE (15:49)
[2023-12-17] MEDS ORDERED: PROPOFOL 10 MG/ML 20 ML VIAL IV ONE (15:49)
[2023-12-17] MEDS ORDERED: ROCURONIUM 10 MG/ML (5 ML VIAL) IV ONE (15:49)
[2023-12-17] MEDS ORDERED: WATER FOR INJECTION, STERILE 10 ML VIAL IV ONE (15:49)
[2023-12-17] MEDS ORDERED: PHENYLEPHRINE 10 MG/ML VIAL ONE (15:49)
[2023-12-17] MEDS ORDERED: SUCCINYLCHOLINE CHLORIDE 200 MG/10 ML VIAL IV ONE (15:49)
[2023-12-17] MEDS ORDERED: fentaNYL (PF) 50 MCG/ML 2 ML AMP ONE (15:49)
[2023-12-17] MEDS ORDERED: GLYCOPYRROLATE 0.2 MG/ML 2 ML VIAL ONE (15:49)
[2023-12-17] MEDS ORDERED: NEOSTIGMINE 1 MG/ML 10 ML VIAL ONE (15:49)
--- NOTE | 2023-12-17 17:44 | P.OP ---
Date of Procedure: 12/17/23 Preoperative Diagnosis: Bilateral renal calculi Postoperative Diagnosis: Same Procedure(s) Performed: Cystoscopy, bilateral ureteral stent removal, bilateral ureteroscopy with stone basketing Anesthesia: ABAD Surgeon: Parvez Barnes Estimated Blood Loss (ml): 5 IV fluids (ml): 400 Pathology: none sent Condition: stable Disposition: PACU Indications for Procedure: The patient is an 83-year-old white female with a history of urolithiasis. She has been treated for Proteus UTIs this year. CT scan showed moderate right hydronephrosis secondary to an 8 mm right proximal ureteral calculus, as well as several small right renal calculi. On the left side, she was found to have a 5 x 8 mm left UPJ calculus along with a 7 mm left midpole renal calculus. It is felt that the recurrent UTIs may be due to the calculi, which may be infected. On November 18, she underwent bilateral ureteroscopy with laser lithotripsy. The right proximal ureteral calculus was fragmented and removed. The urine within the right renal pelvis was cloudy, and therefore a right ureteral stent was placed after removing the proximal ureteral calculus. On the left side, the majority of the calculi were fragmented and removed via stone basketing, but there appeared to be a small ureteral perforation and therefore the procedure was terminated and a ureteral stent was placed. She was scheduled to undergo cystoscopy with bilateral ureteral stent removal, along with removal of any residual calculi on December 10, 2023. However, she experienced pain and was admitted December 09, 2023. The planned surgery was canceled due to a fever. Urine culture has again showed a Proteus UTI, for which she is receiving Rocephin. She now comes for stent removal and removal of any residual calculi. Operative Findings: Multiple small bilateral renal calculi, successfully removed via stone basketing. Description of Procedure: The patient was taken to the operating room and placed in the dorsolithotomy position, with legs supported in Livan stirrups. The external genitalia was prepped and draped sterilely. The 30 lens was used to introduce the 21-Wolof Bernard cystoscopic sheath through the urethra and into the bladder under direct vision. The bladder was examined in its entirety. No abnormalities were seen. Grasping forceps were used to grasp the distal end of both ureteral stents and remove them. The Bernard semirigid ureteroscope was advanced into the bladder, and bilateral ureteroscopy was performed revealing no ureteral calculi. Next, the Bernard Cobra flexible ureteroscope was advanced into the bladder, and bilateral ureteral nephroscopy was performed. Each calyx was examined bilaterally, and calculi were removed using a 0 tip 1.9 Wolof nitinol basket. The largest calculi measured approximately 3 mm in size. On the left side, slight narrowing of the left proximal ureter was noted. The left renal calculi appeared to be of struvite composition. Some mucus was seen within 2 of the calyces, both of which were irrigated thoroughly. All left renal calculi were removed. On the right side, the calculi appeared to be of calcium composition. All calculi exceeding 1 mm in size were removed using the nitinol basket. The only residual calculus fragments were exceedingly tiny on the right side. Pullout ureteroscopy showed no evidence of ureteral trauma. The patient tolerated the procedure well and was taken to the recovery room in stable condition. [facility] [place] Report: Procedure Acuity: Elective Stone Size and Location: Bilateral renal calculi measuring up to 3 mm Ureteral Dilation: No Ureteral Access Sheath Used: No Stone Sent for Analysis: Yes All Stones/Fragments Were Removed with a Basket: Yes Complications: No Preoperative Antibiotics Given: Yes Stent Placed: No
--- NOTE | 2023-12-17 17:45 | FL ---
Fluoroscopy INDICATION: Pain FINDINGS: Fluoroscopy time: 1.3 seconds. Total dose area product (DAP) in uGy*m?, mGy*cm? (or similar): 0.44397 Images obtained: 1. IMPRESSION: 1. Documentation of fluoroscopy.
[2023-12-17] MEDS: hydrALAZINE HCL 20 MG/ML 1 ML VIAL IVP STA ×2 (18:03→19:31)
[2023-12-17] MEDS: HYDROmorphone 0.5 MG/0.5 ML SYRINGE IVP PRN ×2 (18:22→18:41)
[2023-12-17] MEDS: hydrALAZINE HCL 20 MG/ML 1 ML VIAL IVP ONE ×2 (18:43→19:31)
[2023-12-17] MEDS: carvediloL 12.5 MG TAB PO SCH (20:25)
--- NOTE | 2023-12-18 03:37 | P.CONS ---
History of Present Illness - Reason for Consult Consult date: 12/18/23 hypertensive urgency - History of Present Illness Patient is a 83-year-old female with a PMH of hypertension, HLD, and hypot hyroidism was admitted for bilateral calculi status post cystoscopy with bilateral ureteral stent removal, bilateral ureteroscopy with stone basketing, postop day 1. Patient was seen at bedside has current complaint of pain. However unable to obtain thorough history due to patient falling in and out of sleep. Was informed by nurse that patient had multiple readings of elevated blood pressure. The patient denied experiencing chest discomfort, SOB, abdominal pain, nausea, or vomiting. No pertinent imaging WBC 9.6, Hgb 10.0, MCV 85.7, sodium 138, potassium 3.4, chloride 110, BUN 11, creatinine 1.12, T 97.6 F, MI 93, RR 20, BP 200/83 => 181/73 => 168/81 => 155/68, SaO2 91% on 2 L nasal cannula Review of systems: Pertinent positives and negatives as discussed in HPI, a complete review of systems was performed and all other systems are negative. Social history: Unable to obtain adequate social history due to patient being in and out of sleep Physical examination: Vital signs reviewed General: non toxic, no distress, appears at stated age, normal weight Derm: no unusual rashes/lesions, warm Head: atraumatic, normocephalic, symmetric Eyes: EOMI, anicteric sclera, pupils equal round reactive to light ENT: Nose and ears atraumatic Mouth: no lip lesion, mucus membranes moist Cardiovascular: S1S2 reg, no murmur, no edema Lungs: CTA bilateral, no rhonchi, no rales, no accessory muscle use Abdominal: soft, nontender to palpation, no guarding Neuro: CN II-XI grossly intact, no gross focal neuro deficits Psych: Somnolent, arousable and oriented to person Assessment/Plan: Patient is a 83-year-old female with a PMH of hypertension, HLD, and hypothyroidism was admitted for bilateral calculi status post cystoscopy with bilateral ureteral stent removal, bilateral ureteroscopy with stone basketing, postop day 1. #. Hypertensive urgency Multiple readings of SBP >180 No evidence of end-organ damage Continue with hydralazine 100 mg PO TID, Valsartan 320 mg po qd - Start Norvasc 10 mg po qd. Was given hydralazine 10 mg IVP once Cardiology following #. Somnolence - Noted by the RN that patient's altered mentation has somewhat persisted since surgery and suspected due to anesthesia - Primary team aware #. History of CAD with stent #. Hyperlipidemia Continue atorvastatin 40 mg Cardiology following #. Hypothyroidism Continue Synthroid 75 mcg PO morning #. Bilateral renal calculi status post cystoscopy with bilateral ureteral stent removal, bilateral ureteroscopy with stone basketing, postop day 1 Pain band DVT prophylaxis eing managed by primary surgical service Antibiotics being managed by surgical team Defer management of pain control and DVT prophylaxis to primary surgery service. Past Medical History Past Medical History: Coronary Artery Disease (CAD), Hearing Disorder / Deafness, Hyperlipidemia, Hypertension, Osteoarthritis (OA), Thyroid Disorder Additional Past Medical History / Comment(s): "Leaky heart valve", palpitations, shortness of breath when climbing stairs, hx migraine, Hx IV ABX for UTI Mar 2023. Kidney stones. History of Any Multi-Drug Resistant Organisms: None Reported Past Surgical History: Heart Catheterization With Stent, Orthopedic Surgery Additional Past Surgical History / Comment(s): Bilateral knee surgery, bilateral uretral stents/procedure for kidney stones. Past Anesthesia/Blood Transfusion Reactions: No Reported Reaction Date of Last Stent Placement:: 04/26/2019 Smoking Status: Never smoker - Past Family History Father Family Medical History: Cancer Additional Family Medical History / Comment(s): Colon cancer. Medications and Allergies Home Medications Medication Instructions Recorded Confirmed Type Irbesartan 300 mg PO QAM 11/24/13 12/08/23 History Levothyroxine Sodium [Synthroid] 75 mcg PO QAM 11/24/13 12/08/23 History Lansoprazole [Prevacid] 15 mg PO HS 01/20/19 12/08/23 History Melatonin 10 mg PO HS 01/20/19 12/08/23 History Montelukast [Singulair] 10 mg PO HS 01/20/19 12/08/23 History atenoloL [Tenormin] 25 mg PO BID 01/20/19 12/08/23 History hydrALAZINE HCL [Apresoline] 75 mg PO TID 01/20/19 12/08/23 History Aspirin [Adult Low Dose Aspirin EC] 81 mg PO HS 02/17/19 12/08/23 History Albuterol Sulfate [Proair 2 puff INHALATION RT-Q4H PRN 12/28/19 12/08/23 History Respiclick] Atorvastatin [Lipitor] 40 mg PO HS 01/19/23 12/08/23 History Azelastine HCl [Astelin Nasal 2 spr EA NOSTRIL BID PRN 01/19/23 12/08/23 History [place]] DULoxetine HCL [Cymbalta] 20 mg PO BID 01/19/23 12/08/23 History Ferrous Sulfate [Feosol] 325 mg PO WE 01/19/23 12/08/23 History Fexofenadine HCl [Sandra Allergy] 180 mg PO Q48H 01/19/23 12/08/23 History Ubidecarenone [Co Q-10] 300 mg PO QAM 01/19/23 12/08/23 History Lidocaine 5% Patch [Lidoderm 5% 1 patch TOPICAL DAILY PRN 11/13/23 12/08/23 History Patch] Acetaminophen [Tylenol] 325 - 650 mg PO Q4-6H PRN 12/08/23 12/08/23 History Cetirizine HCl [Zyrtec] 10 mg PO Q48H 12/08/23 12/08/23 History Allergies Allergy/AdvReac Type Severity Reaction Status Date / Time Beef Containing Products Allergy Diarrhea Verified 12/15/23 14:12 Milk Containing Products Allergy Diarrhea Verified 12/15/23 14:12 (Dairy) [Dairy] mold Allergy Dyspnea Verified 12/15/23 14:12 Penicillins Allergy Unknown Verified 12/15/23 14:12 Childhood pollen extracts Allergy Dyspnea Verified 12/15/23 14:12 procaine [From Novocain] Allergy Swelling Verified 12/15/23 14:12 Sulfa (Sulfonamide Allergy Unknown Verified 12/15/23 14:12 Antibiotics) tree and shrub pollen Allergy Dyspnea Verified 12/15/23 14:12 aspirin AdvReac Abdominal Verified 12/15/23 14:12 Pain celecoxib [From Celebrex] AdvReac Dyspnea Verified 12/15/23 14:12 Physical Exam Vitals: Vital Signs Temp Pulse Resp BP BP Pulse Ox 12/17/23 23:20 97.6 F 93 20 155/68 91 L 12/17/23 22:05 92 18 168/81 93 L 12/17/23 21:40 88 88 L 12/17/23 21:35 84 14 181/73 97 12/17/23 21:10 86 200/83 95 12/17/23 20:55 198/85 97 12/17/23 20:40 84 206/80 96 12/17/23 20:25 79 216/81 98 12/17/23 20:10 76 208/81 96 12/17/23 19:55 71 219/83 97 12/17/23 19:40 97.9 F 74 14 221/82 97 12/17/23 19:06 72 16 198/83 97 12/17/23 18:51 68 16 211/88 98 12/17/23 18:36 70 18 99 12/17/23 18:21 71 18 100 12/17/23 18:06 69 18 236/105 100 12/17/23 17:51 72 16 226/100 99 12/17/23 17:36 98.2 F 81 16 231/94 98 12/17/23 15:47 73 14 208/91 97 12/17/23 15:36 70 14 217/95 98 12/17/23 15:23 66 15 219/93 95 12/17/23 15:09 65 15 230/97 95 12/17/23 14:57 70 18 223/100 98 12/17/23 14:48 67 16 231/99 97 12/17/23 14:33 97.9 F 74 16 222/96 97 12/17/23 11:33 98 F 76 20 187/77 96 12/17/23 08:00 98.1 F 72 20 207/74 97 12/17/23 03:05 98.1 F 70 16 162/81 97 Intake and Output 12/17/23 12/17/23 12/18/23 14:59 22:59 06:59 Intake Total 540 750 Output Total 5 Balance 540 745 Intake: IV 300 750 Intake, IV Titration 240 Amount IV Fluid Continuation 1, 240 000 ml @ 0 mls/hr IV .STK -MED ONE Rx#:[id number] Output: Estimated Blood Loss 5 Other: Voiding Method Toilet # Voids 1 Results CBC & Chem 7: 12/17/23 06:16 12/17/23 06:16 Labs: Abnormal Lab Results - Last 24 Hours (Table) 12/17/23 12/17/23 Range/Units 06:16 06:16 RBC 3.65 L (3.80-5.40) m/uL Hgb 10.0 L (11.4-16.0) gm/dL Hct 31.3 L (34.0-46.0) % Potassium 3.4 L (3.5-5.1) mmol/L Chloride 110 H (98-107) mmol/L Creatinine 1.12 H (0.52-1.04) mg/dL Glucose 102 H (74-99) mg/dL
[2023-12-18] MEDS: amLODIPine 10 MG TAB PO SCH (07:47)
--- NOTE | 2023-12-18 11:28 | P.PN ---
Subjective HISTORY OF PRESENT ILLNESS: This is a 83-year-old female with a past medical history significant for hypertension, hyperlipidemia, and CAD with previous stenting. Patient follows in the office with Dr. Beauchamp. We have been asked to see the patient in consultation for hypertension. Patient examined at the bedside. Patient is admitted to the hospital secondary to renal calculi. Patient was supposed to undergo cystoscopy, bilateral ureteral stent removal, and ureteroscopy with laser lithotripsy. However this was canceled due to patient's blood pressure being uncontrolled. The patient takes Irbesartan at home which the hospital does not carry. This was treated for valsartan per pharmacy. Patient's blood pressures were greater than 200 systolic. Patient has since been changed to valsartan 320 mg daily. Patient denies any chest pain or pressure. She denies any shortness of breath. Blood pressure this morning 164/78. 12/17/2023 Patient currently denies chest pain or pressure. She denies shortness of breath. Systolic blood pressure today [id number]. 12/18/2023 Patient is status post cystoscopy and bilateral ureteral stent removal with urology yesterday. Patient currently denies chest pain or pressure. She denies shortness of breath. Manual blood pressure this morning 138/70. PHYSICAL EXAM: VITAL SIGNS: Reviewed. GENERAL: Well-developed in no acute distress. HEENT: Head is normocephalic. Pupils are equal, round. Sclerae anicteric. Mucous membranes of the mouth are moist. Neck supple. No JVD or thyromegaly LUNGS: Respirations even and unlabored. Lungs essentially clear to auscultation bilaterally. HEART: Regular rate and rhythm. S1 and S2 heard. ABDOMEN: Soft. Nondistended. Nontender. EXTREMITIES: Normal range of motion. No clubbing or cyanosis. Peripheral pulses intact. No lower extremity edema NEUROLOGIC: Awake and alert. Oriented x 3. ASSESSMENT: UTI Renal calculi Hypertensive urgency CAD with previous stenting to the circumflex and known intermediate disease involving the LAD History of hypertension History of hyperlipidemia PLAN: Continue current cardiac medications Continue to monitor blood pressure. Continue with manual blood pressure checks as automated cuff seems to be falsely elevated Further recommendations pending patient course Nurse practitioner note has been reviewed by physician. Signing provider agrees with the documented findings, assessment, and plan of care documented by RESIDENT INSPECTOR as a scribe. Objective - Vital Signs Vital signs: Vital Signs Temp 98.1 F 12/18/23 11:14 Pulse 87 12/18/23 11:14 Resp 18 12/18/23 11:14 BP 188/80 12/18/23 11:14 Pulse Ox 95 12/18/23 11:14 FiO2 Intake & Output 12/17/23 12/18/23 12/18/23 18:59 06:59 18:59 Intake Total 1240 50 Output Total 5 Balance 1235 50 Weight 49.5 kg Intake: IV 1000 50 Intake, IV Titration 240 Amount IV Fluid Continuation 1, 240 000 ml @ 0 mls/hr IV .STK -MED ONE Rx#:[id number] Output: Estimated Blood Loss 5 Other: Voiding Method Toilet Diaper # Voids 3 - Labs CBC & Chem 7: 12/17/23 06:16 12/17/23 06:16
[2023-12-18 16:45] VITALS: BMI 18.7
--- NOTE | 2023-12-18 19:18 | P.PN ---
Subjective Progress Note Date: 12/18/23 Patient continues to have elevated blood pressure yesterday, underwent bilateral ureteroscopy with stent removal by Dr. Barnes yesterday. Denies any flank pain or gross hematuria at this time. Objective - Vital Signs Vital signs: Vital Signs Temp 98.4 F 12/18/23 14:57 Pulse 71 12/18/23 14:57 Resp 18 12/18/23 14:57 BP 150/80 12/18/23 14:57 Pulse Ox 96 12/18/23 14:57 FiO2 Intake & Output 12/18/23 12/18/23 12/19/23 06:59 18:59 06:59 Intake Total 50 Balance 50 Weight 49.5 kg 49.5 kg Intake: IV 50 Other: Voiding Method Toilet Diaper # Voids 3 - Constitutional General appearance: Present: no acute distress - Gastrointestinal General gastrointestinal: Present: soft. Absent: distended, tenderness - Psychiatric Psychiatric: Present: A&O x's 3 - Labs CBC & Chem 7: 12/17/23 06:16 12/17/23 06:16 Assessment and Plan Assessment: 83-year-old female with history of bilateral stones, underwent bilateral ureteroscopy with stent removal yesterday -She is okay for discharge from urology standpoint, will need 5 additional days of IV ceftriaxone l
[2023-12-19 05:05] VITALS: TEMP 98.4
--- NOTE | 2023-12-19 09:31 | P.PN ---
Subjective No acute overnight event. Denies any flank pain or gross hematuria at this time. Objective - Vital Signs Vital signs: Vital Signs Temp 98.4 F 12/19/23 07:58 Pulse 83 12/19/23 07:58 Resp 16 12/19/23 07:58 BP 166/70 12/19/23 07:58 Pulse Ox 92 L 12/19/23 07:58 FiO2 Intake & Output 12/18/23 12/19/23 12/19/23 18:59 06:59 18:59 Intake Total 0 Balance 0 Weight 49.5 kg 63.2 kg Intake: Oral 0 Other: Voiding Method Toilet Diaper # Voids 2 - Constitutional General appearance: Present: no acute distress - Gastrointestinal General gastrointestinal: Present: soft. Absent: distended, tenderness - Psychiatric Psychiatric: Present: A&O x's 3 - Labs CBC & Chem 7: 12/17/23 06:16 12/17/23 06:16 Assessment and Plan Assessment: 83-year-old female with history of bilateral stones, underwent bilateral ureteroscopy with stent removal12/17/23 -She is okay for discharge from urology standpoint, will need 4 additional days of IV ceftriaxone l
--- NOTE | 2023-12-19 11:27 | P.PN ---
Subjective Progress Note Date: 12/19/23 No new complaints today. Pt is medically cleared for dsicharge when deemed ready by primary team. IV ceftriaxone ordered and home care was set up by CM. Gen: In NAD, non-toxic HEENT: normocephalic, atraumatic, hearing acuity is intant, mucous membranes moist CVS: perfusing all extremities well, no pitting edema, Respiratory: symmetric chest expansion, no accessory muscle use, GI: soft, NTTP, ND, : no suprapubic tenderness, no CVA tenderness MSK/Derm: no rashes, cyanosis Neuro: CN II-XII intact, no motor weakness, Psych: cooperative, euthymic mood, judgment and insight is intact Hospital course: Patient is a 83-year-old female with a PMH of hypertension, HLD, and hypothyroidism was admitted for bilateral calculi status post cystoscopy with bilateral ureteral stent removal, bilateral ureteroscopy with stone basketing, postop day 1. Patient was seen at bedside has current complaint of pain. However unable to obtain thorough history due to patient falling in and out of sleep. Was informed by nurse that patient had multiple readings of elevated blood pressure. The patient denied experiencing chest discomfort, SOB, abdominal pain, nausea, or vomiting. No pertinent imaging WBC 9.6, Hgb 10.0, MCV 85.7, sodium 138, potassium 3.4, chloride 110, BUN 11, cr eatinine 1.12, T 97.6 F, LA 93, RR 20, BP 200/83 => 181/73 => 168/81 => 155/68, SaO2 91% on 2 L nasal cannula Assessment/Plan: Patient is a 83-year-old female with a PMH of hypertension, HLD, and hypothyroidism was admitted for bilateral calculi status post cystoscopy with bilateral ureteral stent removal, bilateral ureteroscopy with stone basketing, postop day 1. #. Hypertensive urgency Multiple readings of SBP >180 No evidence of end-organ damage Continue with hydralazine 100 mg PO TID, Valsartan 320 mg po qd - Start Norvasc 10 mg po qd. Cardiology following #. Somnolence - Noted by the RN that patient's altered mentation has somewhat persisted since surgery and suspected due to anesthesia - Primary team aware #. History of CAD with stent #. Hyperlipidemia Continue atorvastatin 40 mg Cardiology following #. Hypothyroidism Continue Synthroid 75 mcg PO morning #. Bilateral renal calculi status post cystoscopy with bilateral ureteral stent removal, bilateral ureteroscopy with stone basketing, postop day 1 Pain band DVT prophylaxis eing managed by primary surgical service Antibiotics being managed by surgical team Defer management of pain control and DVT prophylaxis to primary surgery service. Objective - Vital Signs Vital signs: Vital Signs Temp 98.4 F 12/19/23 07:58 Pulse 83 12/19/23 07:58 Resp 16 12/19/23 07:58 BP 166/70 12/19/23 07:58 Pulse Ox 92 L 12/19/23 07:58 FiO2 Intake & Output 12/18/23 12/19/23 12/19/23 18:59 06:59 18:59 Intake Total 20 Balance 20 Weight 49.5 kg 63.2 kg Intake: IV 20 Invasive Line 4 10 Invasive Line 5 10 Oral 0 Other: Voiding Method Toilet Toilet Diaper Diaper # Voids 2 - Labs CBC & Chem 7: 12/17/23 06:16 12/17/23 06:16
[2023-12-19 12:34] VITALS: BP 148/74; PULSE 84; RESP 18
--- NOTE | 2023-12-19 14:56 | P.DS ---
Providers Date of admission: 12/11/23 10:23 Attending physician: Parvez Barnes Consults: 12/15/23 15:49 Consult Physician Urgent Consulting Provider: Rolando Beauchamp Consult Reason/Comments: Uncontrolled hypertension Do you want consulting provider notified?: Yes 12/17/23 21:47 Consult Physician Routine Consulting Provider: Paulie Bauer Consult Reason/Comments: Medical Management Do you want consulting provider notified?: Already Contacted Primary care physician: Stated None Hospital Course: This is a 83-year-old female with history of bilateral renal stones, plan was for her to undergo bilateral ureteroscopy with holmium laser for patient's. Increasing pain with nausea and vomiting thus was admitted preoperatively. She was started on IV ceftriaxone. Plan was to take patient to the OR but she had uncontrolled blood pressure and surgery was cancelled, thus cardiology service was consulted and she was deemed cleared for surgery. She underwent bilateral ureteroscopy with holmium laser on December [address] Barnes. Please see op note dated December 16 for surgery details. She did well in the postoperative period. She was discharged home on December 18. At time of discharge she was t olerating a diet, pain was controlled and blood pressure has improved, she was cleared for discharge by cardiology and internal medicine service. Will continue on IV ceftriaxone for 3 additional days. Plan - Discharge Summary Discharge Rx Participant: No New Discharge Prescriptions: New carvediloL [Coreg*] 12.5 mg PO BID-W/MEALS #60 tab Valsartan [Diovan] 320 mg PO DAILY #60 tab amLODIPine [Norvasc] 10 mg PO DAILY #30 tab Continue Levothyroxine Sodium [Synthroid] 75 mcg PO QAM Lansoprazole [Prevacid] 15 mg PO HS Montelukast [Singulair] 10 mg PO HS Melatonin 10 mg PO HS Aspirin [Adult Low Dose Aspirin EC] 81 mg PO HS Albuterol Sulfate [Proair Respiclick] 2 puff INHALATION RT-Q4H PRN PRN Reason: Shortness Of Breath Fexofenadine HCl [Sandra Allergy] 180 mg PO Q48H DULoxetine HCL [Cymbalta] 20 mg PO BID Ubidecarenone [Co Q-10] 300 mg PO QAM Lidocaine 5% Patch [Lidoderm 5% Patch] 1 patch TOPICAL DAILY PRN PRN Reason: Pain Acetaminophen [Tylenol] 325 - 650 mg PO Q4-6H PRN PRN Reason: Pain Ferrous Sulfate [Feosol] 325 mg PO WE Atorvastatin [Lipitor] 40 mg PO HS Azelastine HCl [Astelin Nasal [place]] 2 spr EA NOSTRIL BID PRN PRN Reason: Allergy Symptoms Cetirizine HCl [Zyrtec] 10 mg PO Q48H Changed hydrALAZINE HCL [Apresoline] 100 mg PO TID #180 tab Discontinued Irbesartan 300 mg PO QAM atenoloL [Tenormin] 25 mg PO BID Discharge Medication List Levothyroxine Sodium [Synthroid] 75 mcg PO QAM 11/24/13 [History] Lansoprazole [Prevacid] 15 mg PO HS 01/20/19 [History] Melatonin 10 mg PO HS 01/20/19 [History] Montelukast [Singulair] 10 mg PO HS 01/20/19 [History] Aspirin [Adult Low Dose Aspirin EC] 81 mg PO HS 02/17/19 [History] Albuterol Sulfate [Proair Respiclick] 2 puff INHALATION RT-Q4H PRN 12/28/19 [History] Atorvastatin [Lipitor] 40 mg PO HS 01/19/23 [History] Azelastine HCl [Astelin Nasal [place]] 2 spr EA NOSTRIL BID PRN 01/19/23 [History] DULoxetine HCL [Cymbalta] 20 mg PO BID 01/19/23 [History] Ferrous Sulfate [Feosol] 325 mg PO WE 01/19/23 [History] Fexofenadine HCl [Sandra Allergy] 180 mg PO Q48H 01/19/23 [History] Ubidecarenone [Co Q-10] 300 mg PO QAM 01/19/23 [History] Lidocaine 5% Patch [Lidoderm 5% Patch] 1 patch TOPICAL DAILY PRN 11/13/23 [History] Acetaminophen [Tylenol] 325 - 650 mg PO Q4-6H PRN 12/08/23 [History] Cetirizine HCl [Zyrtec] 10 mg PO Q48H 12/08/23 [History] Valsartan [Diovan] 320 mg PO DAILY #60 tab 12/18/23 [Rx] amLODIPine [Norvasc] 10 mg PO DAILY #30 tab 12/18/23 [Rx] carvediloL [Coreg*] 12.5 mg PO BID-W/MEALS #60 tab 12/18/23 [Rx] hydrALAZINE HCL [Apresoline] 100 mg PO TID #180 tab 12/18/23 [Rx] Follow up Appointment(s)/Referral(s): Parvez Barnes MD [STAFF PHYSICIAN] - 1 Week [facility], [REFERRING] - [facility] [NON-STAFF] - 1 Week (Please call Thursday to schedule follow up appoitment) Patient Instructions/Handouts: Kidney Stones (IP) Activity/Diet/Wound Care/Special Instructions: Notify [facility] of discharge so they will delivery home IV antibiotics and supplies - [phone] if discharged on Thursday or Thursday Discharge Disposition: HOME WITH HOME HEALTH SERVICES
== END 2023-12-19 16:55 | disposition home health service (06) | DRG 872 ==
LOC: 4SSUR 17:34 → EDSTATUS 12-10 13:30 → OBSVTOIN 12-11 10:23 → 3SCARD 12-15 16:45
PROVIDERS: ADMIT Urology; ATTEND Urology
PROC: 0TC18ZZ Extirpation of Matter from Left Kidney, Via Natural or Artificial Opening Endoscopic (ICD-10-PCS; principal; 2023-12-17 13:45)
PROC: 0TC08ZZ Extirpation of Matter from Right Kidney, Via Natural or Artificial Opening Endoscopic (ICD-10-PCS; 2023-12-17 13:45)
PROC: 0TP98DZ Removal of Intraluminal Device from Ureter, Via Natural or Artificial Opening Endoscopic (ICD-10-PCS; 2023-12-17 13:45)
DX: A41.59 Other Gram-negative sepsis (principal); N13.6 Pyonephrosis; I16.0 Hypertensive urgency; E03.9 Hypothyroidism, unspecified; I10 Essential (primary) hypertension; Z53.09 Procedure and treatment not carried out because of other contraindication; E78.5 Hyperlipidemia, unspecified; I25.10 Atherosclerotic heart disease of native coronary artery without angina pectoris; H91.90 Unspecified hearing loss, unspecified ear; Z87.442 Personal history of urinary calculi; Z79.890 Hormone replacement therapy; Z79.82 Long term (current) use of aspirin; Z79.899 Other long term (current) drug therapy; Z95.5 Presence of coronary angioplasty implant and graft; Z88.6 Allergy status to analgesic agent; Z88.4 Allergy status to anesthetic agent; Z88.0 Allergy status to penicillin; Z88.2 Allergy status to sulfonamides; Z88.8 Allergy status to other drugs, medicaments and biological substances; Z80.0 Family history of malignant neoplasm of digestive organs

== ENCOUNTER → 2024-03-24 | Outpatient (CLI) | payer MEDICARE ==
--- NOTE | 2024-03-24 15:15 | XR ---
EXAMINATION TYPE: XR KUB DATE OF EXAM: 03/24/2024 COMPARISON: KUB radiograph 12/19/2023, CT abdomen and pelvis 11/05/2023 HISTORY: Pain TECHNIQUE: Single supine KUB image of the abdomen is obtained FINDINGS: Small bowel demonstrates no evidence for dilatation or air fluid levels. Gas and fecal material is seen in non-distended colon. No convincing evidence for pneumoperitoneum. Interval removal of bilateral ureteral stents. Bilateral pelvic phleboliths redemonstrated. Right rom al 5 mm calculus. No definitive ureteral calculus. The osseous structures are intact. Levoscoliotic curvature of the lumbar spine. Multilevel degenerati ve changes of the visualized spine. Degenerative changes of the pubic symphysis. Redemonstration of s clerotic focus within the left hemisacrum corresponding to bone island prior CT. IMPRESSION: Interval removal of bilateral ureteral stents with right renal 5 mm calculus demonstrated. [facility], , 03/24/2024 3:12 PM
--- NOTE | 2024-03-24 15:31 | US ---
EXAMINATION TYPE: US kidneys/renal and bladder DATE OF EXAM: 03/24/2024 COMPARISON: CT, US 2023 CLINICAL INDICATION: Female, 83 years old with history of N20.0 CALCULUS OF KIDNEY, BILATERAL; Calcul us of kidney TECHNIQUE: Grayscale imaging of the bilateral kidneys and urinary bladder: FINDINGS: EXAM MEASUREMENTS: Right Kidney: 9.5 x 3.8 x 4.9 cm Left Kidney: 9.7 x 5.3 x 5.5 cm Right Kidney: Cortex appears thin. Hyperechoic focus with shadowing seen lower pole 0.8 x 0.9 x 0.5 cm. Left Kidney: Anechoic areas seen throughout the left kidney- question hydro versus cysts. Largest are a at lower pole = 3.7 x 2.9 x 2.0 cm. Bladder: Bilateral Jets seen: Yes IMPRESSION: 1. Left renal sinus" areas possibly representing hydronephrosis versus peripelvic cyst. Correlate fo r obstructive uropathy. 2. Nonobstructing right renal calculi. [facility], , 03/24/2024 3:29 PM
== END | disposition home or self-care (01) ==
LOC: RADUSWWP 14:17
PROVIDERS: ATTEND Urology
DX: N20.0 Calculus of kidney (principal)
CPT/HCPCS: 74018; 76770

== ENCOUNTER → 2024-04-25 | Outpatient (CLI) | payer MEDICARE ==
[2024-04-25 18:11] LABS: Blood Urea Nitrogen 27.2 mg/dL (9.0-27.0); Carbon Dioxide 19.3 mmol/L (21.6-31.8); Chloride 112 mmol/L (96-109); Potassium 4.4 mmol/L (3.5-5.5); Sodium 144 mmol/L (135-145)
[2024-04-25 21:17] LABS: Basophils # (A) 0.07 X 10*3/uL (0.00-0.10); Basophils % (A) 0.7 %; Eosinophils # (A) 0.28 X 10*3/uL (0.04-0.35); Eosinophils % (A) 2.7 %; HCT 44.8 % (37.2-46.3); HGB 13.4 g/dL (12.0-15.0); Lymphocytes # (A) 1.59 X 10*3/uL (0.90-5.00); Lymphocytes % (A) 15.2 %; MCH 27.5 pg (27.0-32.0); MCHC 29.9 g/dL (32.0-37.0); MCV 91.8 FL (80.0-97.0); Mean Platelet Volume 12.5 FL (9.5-12.2); Monocytes # (A) 0.87 X 10*3/uL (0.20-1.00); Monocytes % (A) 8.3 %; NRBC Per 100 WBC 0 X 10*3/uL (0.00-0.01); Neutrophils % (A) 72.7 %; Platelet Count 296 X 10*3/uL (140-440); RBC 4.88 X 10*6/uL (4.10-5.20); RDW 15.5 % (11.5-14.5); WBC 10.45 X 10*3/uL (4.50-10.00)
== END | disposition home or self-care (01) ==
LOC: LABPAT 10:36
PROVIDERS: ATTEND Urology
DX: Z01.818 Encounter for other preprocedural examination (principal); N20.0 Calculus of kidney
CPT/HCPCS: 80051; 82565; 84520; 85025; 87086

== ENCOUNTER 2024-05-02 06:04 | Day surgery (SDC) | payer MEDICARE ==
[2024-05-02] MEDS ORDERED: MIDAZOLAM 2 MG/2 ML VIAL IV PRN (06:29)
[2024-05-02] MEDS ORDERED: LIDOCAINE 1% (10MG/ML) FOR IV START INTRADERMA PRN (06:29)
[2024-05-02] MEDS ORDERED: HYDROmorphone 0.5 MG/0.5 ML SYRINGE IVP PRN (06:29)
[2024-05-02] MEDS ORDERED: LACTATED RINGERS 1,000 ML IV SCH (06:29)
[2024-05-02] MEDS: IV FLUID CONTINUATION 500 ML IV ONE (06:37)
[2024-05-02 06:51] VITALS: RESP 16; TEMP 97.6
--- NOTE | 2024-05-02 07:02 | XR ---
EXAMINATION TYPE: XR KUB DATE OF EXAM: 05/02/2024 COMPARISON: 03/24/2024 CLINICAL INDICATION: Female, 83 years old with history of Right Renal Calculus N20.0; TECHNIQUE: XR KUB views of the abdomen. FINDINGS: The osseous structures are intact. The bowel gas pattern is nonspecific. Lung bases are clear. 5 mm right renal calculus stable. Punctate calculi kidney measuring 1 to 2 mm. Pelvic calcifications stab le too small to characterize. Bone island overlying the left sacrum. Arthropathy of the hips and dege nerative change of the spine. IMPRESSION: 1. Stable 5 mm right renal calculus. [facility], , 05/02/2024 7:00 AM
--- NOTE | 2024-05-02 07:04 | P.GSHP ---
History of Present Illness H&P Date: 05/02/24 Chief Complaint: Right renal calculus The patient is an 83-year-old white female who has been treated for recurrent UTIs. She has a history of calcium oxalate kidney stones, and underwent ureteroscopic removal of bilateral stones last year. She has a residual right renal calculus and comes for ESWL. - Cardiovascular Cardiovascular: Reports high blood pressure - Genitourinary (Female) Genitourinary: Reports as per HPI Past Medical History Past Medical History: Coronary Artery Disease (CAD), GERD/Reflux, Hearing Disorder / Deafness, Hyperlipidemia, Hypertension, Osteoarthritis (OA), Thyroid Disorder Additional Past Medical History / Comment(s): "Leaky heart valve", palpitations, SOB w/exertion, hx migraine, Kidney stones. to start A/B for UTI today History of Any Multi-Drug Resistant Organisms: None Reported Past Surgical History: Heart Catheterization With Stent, Joint Replacement, Orthopedic Surgery Additional Past Surgical History / Comment(s): Bilateral knee replacements, bilateral ureteral stents/procedure for kidney stones. Past Anesthesia/Blood Transfusion Reactions: No Reported Reaction Date of Last Stent Placement:: 04/26/2019 Smoking Status: Never smoker - Past Family History Father Family Medical History: Cancer Additional Family Medical History / Comment(s): Colon cancer. Medications and Allergies Home Medications Medication Instructions Recorded Confirmed Type Levothyroxine Sodium [Synthroid] 75 mcg PO QAM 11/24/13 05/02/24 History Lansoprazole [Prevacid] 15 mg PO HS 01/20/19 05/02/24 History Melatonin 10 mg PO HS PRN 01/20/19 05/02/24 History Montelukast [Singulair] 10 mg PO HS 01/20/19 05/02/24 History Albuterol Sulfate [Proair 2 puff INHALATION RT-Q4H PRN 12/28/19 05/02/24 History Respiclick] Atorvastatin [Lipitor] 40 mg PO HS 01/19/23 05/02/24 History Azelastine HCl [Astelin Nasal 2 spr EA NOSTRIL BID PRN 01/19/23 05/02/24 History [place]] DULoxetine HCL [Cymbalta] 20 mg PO BID 01/19/23 05/02/24 History Lidocaine 5% Patch [Lidoderm 5% 1 patch TOPICAL DAILY PRN 11/13/23 05/02/24 History Patch] Acetaminophen [Tylenol] 325 - 650 mg PO Q4-6H PRN 12/08/23 05/02/24 History Cetirizine HCl [Zyrtec] 10 mg PO DAILY 12/08/23 05/02/24 History carvediloL [Coreg*] 12.5 mg PO BID-W/MEALS #60 tab 12/18/23 05/02/24 Rx hydrALAZINE HCL [Apresoline] 100 mg PO TID #180 tab 12/18/23 05/02/24 Rx Atenolol(Unknown Dose) 1 tab PO DAILY 04/29/24 05/02/24 History Allergies Allergy/AdvReac Type Severity Reaction Status Date / Time Beef Containing Products Allergy Diarrhea Verified 05/02/24 06:43 Milk Containing Products Allergy Diarrhea Verified 05/02/24 06:43 (Dairy) [Dairy] mold Allergy Dyspnea Verified 05/02/24 06:43 Penicillins Allergy Unknown Verified 05/02/24 06:43 Childhood pollen extracts Allergy Dyspnea Verified 05/02/24 06:43 procaine [From Novocain] Allergy Swelling Verified 05/02/24 06:43 Sulfa (Sulfonamide Allergy Unknown Verified 05/02/24 06:43 Antibiotics) tree and shrub pollen Allergy Dyspnea Verified 05/02/24 06:43 aspirin AdvReac Abdominal Verified 05/02/24 06:43 Pain celecoxib [From Celebrex] AdvReac Dyspnea Verified 05/02/24 06:43 Surgical - Exam Vital Signs Temp Pulse Resp BP Pulse Ox 97.6 F 62 16 162/73 97 05/02/24 06:49 05/02/24 06:49 05/02/24 06:49 05/02/24 06:49 05/02/24 06:49 - General well developed, well nourished, no distress - Respiratory normal respiratory effort - Abdomen Abdomen: soft, non tender, no guarding, no rigid, no rebound - Psychiatric oriented to time, oriented to person, oriented to place, speech is normal, memory intact Results - Imaging Abdominal x-ray: report reviewed, image reviewed CT scan - abdomen: report reviewed Assessment and Plan (1) Calculus of kidney Current Visit: No Status: Acute Code(s): N20.0 - CALCULUS OF KIDNEY SNOMED Code(s): 84506798 Plan: I discussed with the patient the treatment of the calculus with ESWL. I explained the possible need for repeat ESWL or alternative treatment in the event of treatment failure or incomplete fragmentation. I discussed the risks of ESWL, including anesthesia, collateral damage to other organs, and [place]. The possible need for a secondary intervention such as a stent or ureteroscopy was discussed. The patient expressed an understanding of the procedure and risks including but not limited to bleeding, infection, obstruction, and rarely injury to other organs such as the liver.
[2024-05-02] MEDS: DEXAMETHASONE SOD PHOSPHATE 4 MG/ML 1 ML VIAL IV ONE (07:11)
[2024-05-02] MEDS: ONDANSETRON 4 MG/2 ML VIAL IVP ONE (07:11)
[2024-05-02] MEDS ORDERED: PROPOFOL 10 MG/ML 20 ML VIAL IV ONE (07:33)
[2024-05-02] MEDS ORDERED: MIDAZOLAM 2 MG/2 ML VIAL ONE (07:33)
[2024-05-02] MEDS ORDERED: KETAMINE HCL IN 0.9 % NACL 50 MG/5 ML SYRINGE ONE (07:33)
[2024-05-02] MEDS ORDERED: fentaNYL (PF) 50 MCG/ML 2 ML AMP ONE (07:33)
--- NOTE | 2024-05-02 08:19 | P.OP ---
Date of Procedure: 05/02/24 Preoperative Diagnosis: Right renal calculus Postoperative Diagnosis: Same Procedure(s) Performed: Right extracorporal shockwave lithotripsy (ESWL) Anesthesia: MAC Surgeon: Parvez Barnes Estimated Blood Loss (ml): 0 IV fluids (ml): 400 Pathology: none sent Condition: stable Disposition: PACU Indications for Procedure: The patient is an 83-year-old white female who has been treated for recurrent UTIs. She has a history of calcium oxalate kidney stones, and underwent ureteroscopic removal of bilateral stones last year. She has a residual 5 mm right renal calculus and comes for ESWL. Operative Findings: No definite fragmentation of the calculus. Description of Procedure: The patient was taken to the operating room and placed on the [employer] 3000 lithotripter in the supine position. The calculus was seen on biplanar fluoroscopy. Once the patient was properly positioned and sedated, lithotripsy was performed. The energy level was gradually increased per protocol, to an energy level of 16. After 200 shocks were administered, a 2 minute pause was instituted per protocol. A total of 2500 shocks were given at a rate of 80 shocks per minute. Fluoroscopy was utilized at a minimum to ensure proper positioning and determine the treatment status. The appearance of the calculus failed to change, suggesting fragmentation had not occurred. The patient tolerated the procedure well was taken to the recovery room in stable condition. Instructions were given to strain the urine, and the patient will follow-up within one week.
[2024-05-02] MEDS: LACTATED RINGERS 1,000 ML IV ONE (08:21)
[2024-05-02 08:50] VITALS: BP 167/71; PULSE 69
== END 2024-05-02 09:27 | disposition home or self-care (01) ==
LOC: ORWHC2ENDO 06:04
PROVIDERS: ATTEND Urology
DX: N20.0 Calculus of kidney (principal); I25.10 Atherosclerotic heart disease of native coronary artery without angina pectoris; K21.9 Gastro-esophageal reflux disease without esophagitis; E78.5 Hyperlipidemia, unspecified; I10 Essential (primary) hypertension; G43.909 Migraine, unspecified, not intractable, without status migrainosus; M19.90 Unspecified osteoarthritis, unspecified site; Z96.653 Presence of artificial knee joint, bilateral; Z87.442 Personal history of urinary calculi; Z87.440 Personal history of urinary (tract) infections; Z80.0 Family history of malignant neoplasm of digestive organs; Z88.0 Allergy status to penicillin; Z88.2 Allergy status to sulfonamides; Z88.1 Allergy status to other antibiotic agents; Z88.6 Allergy status to analgesic agent; Z79.02 Long term (current) use of antithrombotics/antiplatelets; Z79.890 Hormone replacement therapy; Z79.51 Long term (current) use of inhaled steroids; Z79.899 Other long term (current) drug therapy
CPT/HCPCS: 74018; 50590; J2250; J1100; J2405; J3010; J2704